=== PATIENT | male | born 1945 | race Caucasian/White ===

== ENCOUNTER → 2018-10-08 12:02 | Outpatient (ROUT) | payer MEDICARE, OTHER, SELFPAY ==
[2018-10-08 13:13] LABS: Troponin I 0.229 ng/mL (0.01-0.034)
== END ==
PROVIDERS: Visit Provider Student in an Organized Health Care Education/Training Program
DX: I25.2 Old myocardial infarction (principal)
CPT/HCPCS: 84484

== ENCOUNTER → 2020-05-06 10:02 | Outpatient (CLI) | payer MEDICARE, OTHER, SELFPAY ==
[2020-05-06 11:35] LABS: Add Manual Diff / Slide Review NO; Basophils Absolute Auto 0 /uL (0-100); Basophils Percent Auto 0.4 % (0-2); Eosinophils Absolute Auto 100 /uL (0-450); Eosinophils Percent Auto 0.8 % (2-4); Hematocrit 45.9 % (41-53); Hemoglobin 16.3 g/dL (13.5-17.5); Lymphocytes Absolute Auto 1800 /uL (1100-4500); Lymphocytes Percent Auto 26.6 % (25-40); Mean Corpuscular HGB Conc 35.5 % (30-36); Mean Corpuscular Volume 101.5 fL (80-100); Monocytes Absolute Auto 700 /uL (0-900); Monocytes Percent Auto 10.8 % (3-14); Neutrophils Absolute Auto 4200 /uL (1500-7000); Neutrophils Percent Auto 61.4 % (50-75); Platelet Count 174 X10^3/uL (150-400); Red Blood Cell Count 4.52 X10^6/uL (4.5-5.9); Red Cell Distribution Width 12.5 % (11.6-14.8); White Blood Cell Count 6.9 X10^3/uL (4.5-11.0)
[2020-05-06 12:13] LABS: Alanine Aminotransferase 30 IU/L (<50); Albumin 4.6 g/dL (3.5-5.0); Albumin Globulin Ratio 1.7 (1.0-2.8); Alkaline Phosphatase 93 U/L (38-126); Aspartate Aminotransferase 32 IU/L (17-59); BUN Creatinine Ratio 20.9 (6-22); Bilirubin Total 0.7 mg/dL (0.2-1.3); Blood Urea Nitrogen 19 mg/dL (9-20); Calcium 9.7 mg/dL (8.4-10.2); Carbon Dioxide 23 mmol/L (22-32); Chloride 103 mmol/L (98-107); Cholesterol 203 mg/dL (140-199); Estimated Glomerular Filt Rate > 60.0 mL/min (>60); Globulin 2.7 g/dL (1.7-4.1); Glucose 115 mg/dL (80-110); HDL Cholesterol 32 mg/dL (40-60); HEMOLYSIS < 15 (0-50); LDL Cholesterol Calculated 113 mg/dL (<100); Potassium 4.4 mmol/L (3.4-5.1); Sodium 137 mmol/L (137-145); Total Protein 7.3 g/dL (6.3-8.2); Triglycerides 292 mg/dL (35-150)
[2020-05-06 12:24] LABS: Erythrocyte Sedimentation Rate 4 MM/HR (0-15)
[2020-05-06 12:25] LABS: NT-proBNP (BNP-Adult 18+) 66 pg/mL (<450)
[2020-05-06 12:46] LABS: Prostate Specific Antigen 0.468 ng/mL (0.10-4.00)
[2020-05-06 13:04] LABS: Vitamin B12 632 pg/mL (239-931)
[2020-05-07 05:11] LABS: RPR Screen Non Reactive (Non Reactive)
[2020-05-10 02:36] LABS: Methylmalonic Acid,Serum 190 nmol/L (0-378)
== END ==
PROVIDERS: Referring Provider Family Medicine; Visit Provider Family Medicine
DX: R41.3 Other amnesia (principal)
CPT/HCPCS: 36415; 80053; 80061; 82607; 83880; 83921; 84153; 84443; 85025; 85651; 86592

== ENCOUNTER 2020-08-30 17:28 | Observation (INO) | payer MEDICARE, OTHER, SELFPAY ==
[2020-08-30] VITALS (20 sets, daily range): BP systolic 161–201; BP diastolic 73–123; PULSE 64–130; RESP 9–42; TEMP 36.3–36.8; O2SAT 86–97; BMI 30.9; BMI 29.1
--- NOTE | 2020-08-30 17:41 | DI.CT.S_ITS ---
PROCEDURE: CT HEAD/BRAIN WO CON INDICATIONS: balance issues, left facial droop, no last known well TECHNIQUE: Noncontrast 4.5 mm thick angled axial sections acquired from the foramen magnum to the vertex, with coronal and sagittal reformats. For radiation dose reduction, the following was used: automated exposure control, adjustment of mA and/or kV according to patient size. COMPARISON: None. FINDINGS: Image quality: Excellent. CSF spaces: Basal cisterns are patent. No extra-axial fluid collections. The ventricles are symmetric in size and shape. Brain: No intracranial bleeds or masses. There is a small old infarct in the right occipital lobe with encephalomalacia. There is mild cerebral volume loss for age, with resultant ventricular and sulcal prominence. There are moderate periventricular and deep white matter chronic small vessel ischemic changes. There is intracranial internal carotid artery atherosclerosis. There is a stent in the distal right vertebral artery. Skull and face: Calvarium and visualized facial bones appear intact, without suspicious lesions. Sinuses: Visualized sinuses and mastoids are clear. IMPRESSION: 1. No acute intracranial abnormalities. 2. Old infarct in the right occipital lobe. Dictated by: Delgado Balderas M.D. on 08/30/2020 at 18:29 Approved by: Delgado Balderas M.D. on 08/30/2020 at 18:34
[2020-08-30] MEDS: SODIUM CHLORIDE 0.9% 1,000 ML 250 ML IV (18:20)
[2020-08-30 18:28] LABS: Add Manual Diff / Slide Review NO; Basophils Absolute Auto 100 /uL (0-100); Basophils Percent Auto 0.5 % (0-2); Eosinophils Absolute Auto 100 /uL (0-450); Eosinophils Percent Auto 0.8 % (2-4); Hematocrit 45.2 % (41-53); Lymphocytes Absolute Auto 1900 /uL (1100-4500); Lymphocytes Percent Auto 18.3 % (25-40); Mean Corpuscular HGB Conc 35.4 % (30-36); Mean Corpuscular Hemoglobin 36.1 PG (26-34); Monocytes Absolute Auto 1100 /uL (0-900); Monocytes Percent Auto 10.9 % (3-14); Neutrophils Absolute Auto 7100 /uL (1500-7000); Neutrophils Percent Auto 69.5 % (50-75); Platelet Count 179 X10^3/uL (150-400); Red Blood Cell Count 4.43 X10^6/uL (4.5-5.9); Red Cell Distribution Width 12.4 % (11.6-14.8); White Blood Cell Count 10.2 X10^3/uL (4.5-11.0)
[2020-08-30 18:39] LABS: Alanine Aminotransferase 40 IU/L (<50); Albumin 4.6 g/dL (3.5-5.0); Albumin Globulin Ratio 1.4 (1.0-2.8); Alkaline Phosphatase 85 U/L (38-126); Aspartate Aminotransferase 39 IU/L (17-59); BUN Creatinine Ratio 19.4 (6-22); Bilirubin Total 0.8 mg/dL (0.2-1.3); Blood Urea Nitrogen 19 mg/dL (9-20); Calcium 9.9 mg/dL (8.4-10.2); Carbon Dioxide 27 mmol/L (22-32); Chloride 104 mmol/L (98-107); Creatine Kinase 76 U/L (55-170); Estimated Glomerular Filt Rate > 60.0 mL/min (>60); Globulin 3.2 g/dL (1.7-4.1); Glucose 76 mg/dL (80-110); HEMOLYSIS < 15 (0-50); Sodium 141 mmol/L (137-145); Total Protein 7.8 g/dL (6.3-8.2)
--- NOTE | 2020-08-30 18:45 | ED.NEUROSD ---
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 He states that approximately 10 days ago he felt a sensation the left side of his head that he described as ?popcorn popping ?shortly afterwards he started to have some slurring of his words which he states was new for him. He was also having some blurry vision. He is also having some weakness on his right side. Some of the symptoms have improved since the onset but none of them have completely resolved. He did have some deficits from his prior strokes but with time all those deficits have improved and he thinks what he is experiencing today are new. He has not tried anything for symptoms prior to arrival. He states the reason he came in today is because he talk with a friend who thought he should come in for evaluation. On Anticoagulants: No Related Data Home Medications Medication Instructions Recorded Confirmed aspirin 81 mg tablet 81 mg PO DAILY 08/30/20 08/30/20 garlic 1,000 mg PO QPC 08/30/20 08/30/20 Allergies Allergy/AdvReac Type Severity Reaction Status Date / Time ranitidine [From Zantac] Allergy Verified 08/30/20 17:49 Review of Systems Constitutional Constitutional: Denies headache(s) (No headache currently) Eyes Comments: Blurry vision ENT Ears, Nose, Mouth, and Throat: Denies headache(s) (No headache currently) Cardiovascular Comments: No chest pain, no palpitations, no fast heart rate Respiratory Comments: No shortness of breath Gastrointestinal Comments: No abdominal pain, nausea vomiting Genitourinary Genitourinary: Reports system reviewed and no additional complaints, except as documented Musculoskeletal Comments: Right upper lower extremity weakness Integumentary/Breasts Comments: No rashes Neurologic Neurologic: Denies confusion and Denies headache(s) (No headache currently) Psychiatric Psychiatric: Denies confusion Endocrine Endocrine: Reports system reviewed and no additional complaints, except as documented Hematologic/Lymphatic On Anticoagulants: No Allergic/Immunologic Allergic/Immunologic: Reports system reviewed and no additional complaints, except as documented Patient History Medical History History of stroke Social History Smoking Status: Former smoker alcohol intake: current Smoking Status: Former smoker Substance Use Type: does not use Exam Initial Vital Signs Initial Vital Signs: Vital Signs Pulse Oximetry 86 L 08/30/20 17:36 Const General: cooperative, healthy appearing and comfortable HENMT Head: normal to inspection and normocephalic Eyes Pupils: PERRL EOM: EOM intact bilaterally Chest Chest: normal inspection of the chest Resp Auscultation: clear to auscultation bilaterally Cardio Rate: regular rate Rhythm: regular rhythm GI Palpation: soft Skin General: no rashes or lesions noted Neuro Cranial Nerves: CN's II-XI intact bilaterally Cognition: normal cognition Motor: muscle tone normal throughout Extrem General: normal to inspection and capillary refill normal Psych Appearance: grossly normal and well kempt Scores GCS Zohra coma scale eye opening: Spontaneous Zohra coma scale verbal response: Orientated Zohra coma scale motor response: Obey commands Delano coma scale total score: 15 NIH Stroke Scale Level of Conciousness: Alert, keenly responsive Ask month/age: Answers both questions correctly. Open/close eyes, close hand: Performs both tasks correctly Best gaze horizontal: Normal Visual capps: No visual loss Facial palsy: Minor paralysis, flattened nasolabial fold, asymmetry on smiling Left arm drift: No drift for full 10 sec Right arm drift: No drift for full 10 sec Left leg drift: No drift for full 5 sec Right leg drift: No drift for full 5 sec Limb ataxia: Absent Sensory on face/arms/legs: Normal, no sensory loss Best language: No aphasia, normal Dysarthria: Mild to mod,some slurring Extinction or inattention: No abnormality Total NIH Stroke scale score: 2 Course Orders Ordered: ED Orders 08/30/20 17:41 CT head/brain wo con Stat EKG-12 Lead Stat 08/30/20 18:00 Complete Blood Count AUTO DIFF Stat Comprehensive Metabolic Panel Stat Troponin & CK Cardiac Panel Stat 08/30/20 18:47 COVID19 - ADMIT ([facility] swab/PCR) Stat 08/30/20 19:07 Urine Drug Screen, Rapid Stat Acetaminophen (Acetaminophen 325 Mg Tablet) 650 mg PO Q6HR PRN PRN Reason: Fever/Mild Pain (1-3) Al Hydrox/Mg Hydrox/Simethicone (Mag Hydrox/Alum/Simeth 30 Ml Udc) 30 ml PO Q6HR PRN PRN Reason: Dyspepsia Aspirin (Aspirin Ec 81 Mg Tablet) 81 mg PO DAILY [facility] Atorvastatin Calcium (Atorvastatin 20 Mg Tablet) 80 mg PO BEDTIME [facility] Last Admin: 08/30/20 23:01 Dose: 80 mg Documented by: KEVIN Clopidogrel Bisulfate (Clopidogrel 75 Mg Tablet) 75 mg PO DAILY [facility] Naloxone HCl (Naloxone 0.4 Mg/Ml Vial) 0.2 mg IV Q2MIN PRN PRN Reason: Opiate Reversal Ondansetron HCl (Ondansetron 4 Mg/2 Ml Inj) 4 mg IV Q8HR PRN PRN Reason: Nausea And Vomiting Oxycodone HCl (Oxycodone Ir 5 Mg Tablet) 5 mg PO Q6HR PRN PRN Reason: Pain, Moderate (4-6) Sennosides (Sennosides 8.6 Mg Tablet) 17.2 mg PO BEDTIME [facility] Last Admin: 08/30/20 23:01 Dose: 17.2 mg Documented by: KEVIN Discontinued Medications Aspirin (Aspirin 81 Mg Chew Tab) 324 mg PO NOW ONE Stop: 08/30/20 18:47 Last Admin: 08/30/20 23:02 Dose: 324 mg Documented by: KEVIN Sodium Chloride (Normal Saline 0.9%) 1,000 mls @ 250 mls/hr IV BOLUS ONE Stop: 08/30/20 21:54 Last Infusion: 08/30/20 21:01 Dose: 250 mls/hr Documented by: Admin: 08/30/20 18:20 Dose: 250 mls/hr Documented by: YOLY Vital Signs Vital signs: Vital Signs - 8 hr 08/30/20 17:36 08/30/20 17:37 08/30/20 17:49 Temperature 98.2 F Pulse Rate 68 67 Pulse Rate [Orthostatic Lying] Pulse Rate [Orthostatic Sitting] Pulse Rate [Orthostatic Standing] Respiratory Rate 15 12 Blood Pressure 189/89 H 189/89 H Blood Pressure [Orthostatic Lying] Blood Pressure [Orthostatic Sitting] Blood Pressure [Orthostatic Standing] Pulse Oximetry 86 L 94 95 08/30/20 18:00 08/30/20 18:03 08/30/20 18:05 Temperature Pulse Rate 66 67 69 Pulse Rate [Orthostatic Lying] Pulse Rate [Orthostatic Sitting] Pulse Rate [Orthostatic Standing] Respiratory Rate 19 22 42 H Blood Pressure 192/89 H 176/91 H Blood Pressure [Orthostatic Lying] Blood Pressure [Orthostatic Sitting] Blood Pressure [Orthostatic Standing] Pulse Oximetry 96 95 96 08/30/20 18:06 08/30/20 18:13 08/30/20 18:19 Temperature Pulse Rate 73 67 Pulse Rate [Orthostatic Lying] 68 Pulse Rate [Orthostatic Sitting] 69 Pulse Rate [Orthostatic Standing] 74 Respiratory Rate 9 L 21 Blood Pressure 166/73 H 201/92 H Blood Pressure [Orthostatic Lying] 192/89 H Blood Pressure [Orthostatic Sitting] 176/91 H Blood Pressure [Orthostatic Standing] 166/73 H Pulse Oximetry 96 95 08/30/20 18:30 08/30/20 19:00 08/30/20 19:08 Temperature Pulse Rate 64 66 71 Pulse Rate [Orthostatic Lying] Pulse Rate [Orthostatic Sitting] Pulse Rate [Orthostatic Standing] Respiratory Rate 21 19 18 Blood Pressure 186/85 H 191/91 H 197/113 H Blood Pressure [Orthostatic Lying] Blood Pressure [Orthostatic Sitting] Blood Pressure [Orthostatic Standing] Pulse Oximetry 94 97 95 08/30/20 19:30 08/30/20 19:31 08/30/20 20:00 Temperature Pulse Rate 65 65 64 Pulse Rate [Orthostatic Lying] Pulse Rate [Orthostatic Sitting] Pulse Rate [Orthostatic Standing] Respiratory Rate 19 20 21 Blood Pressure 191/123 H Blood Pressure [Orthostatic Lying] Blood Pressure [Orthostatic Sitting] Blood Pressure [Orthostatic Standing] Pulse Oximetry 93 94 92 08/30/20 20:01 Temperature Pulse Rate 64 Pulse Rate [Orthostatic Lying] Pulse Rate [Orthostatic Sitting] Pulse Rate [Orthostatic Standing] Respiratory Rate 21 Blood Pressure 184/85 H Blood Pressure [Orthostatic Lying] Blood Pressure [Orthostatic Sitting] Blood Pressure [Orthostatic Standing] Pulse Oximetry 93 MDM - Neuro Symptoms/Deficit Lab Data Attestation: I reviewed the patient's lab results. Result diagrams: 08/30/20 18:00 08/30/20 18:00 Labs: Lab Results 08/30/20 08/30/20 08/30/20 Range/Units 18:00 18:00 18:47 WBC 10.2 (4.5-11.0) X10^3/uL RBC 4.43 L (4.5-5.9) X10^6/uL Hgb 16.0 (13.5-17.5) g/dL Hct 45.2 (41-53) % MCV 102.0 H (80-100) fL MCH 36.1 H (26-34) PG MCHC 35.4 (30-36) % RDW 12.4 (11.6-14.8) % Plt Count 179 (150-400) X10^3/uL Neut % (Auto) 69.5 (50-75) % Lymph % (Auto) 18.3 L (25-40) % [place] % (Auto) 10.9 (3-14) % Eos % (Auto) 0.8 L (2-4) % Baso % (Auto) 0.5 (0-2) % Neut # (Auto) 7100 H (0411-1053) /uL Lymph # (Auto) 1900 (8721-1771) /uL [place] # (Auto) 1100 H (0-900) /uL Eos # (Auto) 100 (0-450) /uL Baso # (Auto) 100 (0-100) /uL Sodium 141 (137-145) mmol/L Potassium 4.0 (3.4-5.1) mmol/L Chloride 104 (98-107) mmol/L Carbon Dioxide 27 (22-32) mmol/L BUN 19 (9-20) mg/dL Creatinine 0.98 (0.66-1.25) mg/dL Estimated GFR > 60.0 (>60) mL/min BUN/Creatinine Ratio 19.4 (6-22) Glucose 76 L (80-110) mg/dL Calcium 9.9 (8.4-10.2) mg/dL Total Bilirubin 0.8 (0.2-1.3) mg/dL AST 39 (17-59) IU/L ALT 40 (<50) IU/L Alkaline Phosphatase 85 (38-126) U/L Total Creatine Kinase 76 (55-170) U/L CK-MB (CK-2) TNP CK-MB (CK-2) Rel Index TNP Troponin I < 0.012 (0.01-0.034) ng/mL Total Protein 7.8 (6.3-8.2) g/dL Albumin 4.6 (3.5-5.0) g/dL Globulin 3.2 (1.7-4.1) g/dL Albumin/Globulin Ratio 1.4 (1.0-2.8) U Opiates 300ng/mL cut (Negative) Ur Oxycodone Screen (Negative) Urine Methadone Screen (Negative) Ur Barbiturates Screen (Negative) U Tricyclic Antidepress (Negative) Ur Phencyclidine Scrn (Negative) Ur Amphetamines Screen (Negative) U Methamphetamines Scrn (Negative) Ur MDMA Scrn (Ecstasy) (Negative) U Benzodiazepines Scrn (Negative) Urine Cocaine Screen (Negative) U Marijuana (THC) Screen (Negative) SARS-CoV-2 (PCR) Negative (Negative) 08/30/20 Range/Units 19:07 WBC (4.5-11.0) X10^3/uL RBC (4.5-5.9) X10^6/uL Hgb (13.5-17.5) g/dL Hct (41-53) % MCV (80-100) fL MCH (26-34) PG MCHC (30-36) % RDW (11.6-14.8) % Plt Count (150-400) X10^3/uL Neut % (Auto) (50-75) % Lymph % (Auto) (25-40) % [place] % (Auto) (3-14) % Eos % (Auto) (2-4) % Baso % (Auto) (0-2) % Neut # (Auto) (9051-6028) /uL Lymph # (Auto) (3061-0359) /uL [place] # (Auto) (0-900) /uL Eos # (Auto) (0-450) /uL Baso # (Auto) (0-100) /uL Sodium (137-145) mmol/L Potassium (3.4-5.1) mmol/L Chloride (98-107) mmol/L Carbon Dioxide (22-32) mmol/L BUN (9-20) mg/dL Creatinine (0.66-1.25) mg/dL Estimated GFR (>60) mL/min BUN/Creatinine Ratio (6-22) Glucose (80-110) mg/dL Calcium (8.4-10.2) mg/dL Total Bilirubin (0.2-1.3) mg/dL AST (17-59) IU/L ALT (<50) IU/L Alkaline Phosphatase (38-126) U/L Total Creatine Kinase (55-170) U/L CK-MB (CK-2) CK-MB (CK-2) Rel Index Troponin I (0.01-0.034) ng/mL Total Protein (6.3-8.2) g/dL Albumin (3.5-5.0) g/dL Globulin (1.7-4.1) g/dL Albumin/Globulin Ratio (1.0-2.8) U Opiates 300ng/mL cut Positive H (Negative) Ur Oxycodone Screen Negative (Negative) Urine Methadone Screen Negative (Negative) Ur Barbiturates Screen Negative (Negative) U Tricyclic Antidepress Negative (Negative) Ur Phencyclidine Scrn Negative (Negative) Ur Amphetamines Screen Negative (Negative) U Methamphetamines Scrn Negative (Negative) Ur MDMA Scrn (Ecstasy) Negative (Negative) U Benzodiazepines Scrn Negative (Negative) Urine Cocaine Screen Negative (Negative) U Marijuana (THC) Screen Negative (Negative) SARS-CoV-2 (PCR) (Negative) Point of Care Testing Glucose POC 77 Urine Dip Bedside Urine Glucose Negative Bedside Urine Bilirubin - Negative Bedside Urine Ketone - Negative Urine Specific [place] 1.030 Bedside Urine Occult Blood - Negative Bedside Urine pH 6.0 Bedside Urine Protein - Negative Bedside Urine Urobilinogen +/- 1mg Bedside Urine Nitrite - Negative Bedside Urine Leukocytes - Negative Esterase Imaging Data CT scan - head: Radiologist's Impression: [address] [id number] Scan ReportSigned Patient: Moustapha Coppola FMR#: [id number]: 4Acct:[id number]/Sex: 74 / MDate of Service: 08/30/20Loc: EDAccession Number: [id number] Procedure: CT head/brain wo con Ordering Provider: Roro Slaughter D.O. PROCEDURE: CT HEAD/BRAIN WO CON INDICATIONS: balance issues, left facial droop, no last known well TECHNIQUE: Noncontrast 4.5 mm thick angled axial sections acquired from the foramen magnum to the vertex, with coronal and sagittal reformats. For radiation dose reduction, the following was used: automated exposure control, adjustment of mA and/or kV according to patient size. COMPARISON: None. FINDINGS: Image quality: Excellent. CSF spaces: Basal cisterns are patent. No extra-axial fluid collections. The ventricles are symmetric in size and shape. Brain: No intracranial bleeds or masses. There is a small old infarct in the right occipital lobe with encephalomalacia. There is mild cerebral volume loss for age, with resultant ventricular and sulcal prominence. There are moderate periventricular and deep white matter chronic small vessel ischemic changes. There is intracranial internal carotid artery atherosclerosis. There is a stent in the distal right vertebral artery. Skull and face: Calvarium and visualized facial bones appear intact, without suspicious lesions. Sinuses: Visualized sinuses and mastoids are clear. IMPRESSION: 1. No acute intracranial abnormalities. 2. Old infarct in the right occipital lobe. Dictated by: Delgado Balderas M.D. on 08/30/2020 at 18:29 Approved by: Delgado Balderas M.D. on 08/30/2020 at 18:34 ECG Data Attestation: I personally reviewed and interpreted this ECG as follows: Interpretation: Sinus rhythm Ventricular rate is 66 Sinus arrhythmia Normal QRS Left axis deviation No ST T wave changes MDM Narrative Medical decision making narrative: Head CT shows no acute pathology. Patient's symptoms began greater than 10 days ago so is not a candidate for tPA. His NIH score of 2. I suspect that he did have a CVA 10 days ago given his presentation. Given this and feel he does need admitted to the hospital for further evaluation treatment. Discussed the case with TATIANA Troy the night hospitalist who will admit for further evaluation and treatment. Discussed the need for admission with the patient. He expressed understanding and agreement. Discharge Plan Departure Patient Disposition: Admitted as Observation Clinical Impression: Cerebrovascular accident Admit Date/Time: 08/30/20 20:08 Admit Provider: Mara Troy
[2020-08-30 18:50] LABS: Troponin I < 0.012 ng/mL (0.01-0.034)
[2020-08-30 19:29] LABS: UR Morphine/Opiate cutoff 300 Positive (Negative); Ur Creatinine Normal (Normal); Ur Specific Gravity Normal (Normal); Urine Amphetamines Negative (Negative); Urine Barbiturates Negative (Negative); Urine Benzodiazepines Negative (Negative); Urine Cocaine Negative (Negative); Urine MDMA Negative (Negative); Urine Methadone Negative (Negative); Urine Methamphetamines Negative (Negative); Urine Oxycodone Negative (Negative); Urine Phencyclidine Negative (Negative); Urine Tetrahydrocannabinol Negative (Negative); Urine Tricyclic Antidepressant Negative (Negative); Urine pH Normal (Normal)
[2020-08-30 20:03] LABS: COVID19 - ADMIT (NP swab/PCR) Negative (Negative)
--- NOTE | 2020-08-30 20:10 | DI.MRI.S_ITS ---
PROCEDURE: MR STROKE Pre- and post-contrast brain MRI, non-contrast brain MR angiogram, pre- and postcontrast neck MR angiogram INDICATIONS: R/O Stroke TECHNIQUE: Brain: Noncontrast axial T1 spin echo, axial T2 fast spin echo, sagittal and axial FLAIR, coronal T2 fast spin echo, axial gradient echo, axial diffusion and ADC through the brain. After the administration of contrast, axial 3D VIBE of the cranial vasculature and brain. Brain MRA: Non-contrast 3-D time of flight MR angiogram, with multiple ncytomq-yogexildy-shfbelyqah (MIP) reformats performed. Neck MRA: Axial and sagittal TruFISP through the neck. Coronal dynamic MR angiogram during administration of contrast in the arterial and venous phases, with 3-dimenstional bevsqqm-gelbvndqp-wzwazxwrnf (MIP) reformats constructed from subtraction images. COMPARISON: [facility], CT, CT HEAD/BRAIN WO CON, 08/30/2020, 18:07. FINDINGS: BRAIN: CSF spaces: Ventricles are grossly unremarkable. Basal cisterns are patent. No extra-axial fluid collections. Brain: No midline shift. No intracranial bleeds or masses. Bryant-white matter interface appears intact. Acute ischemia is noted primarily involving the right temporal occipital lobe but also osteoarthritis sub 5 mm focus seen in the left thalamus. Additional possible 1 mm focus seen in the right thalamus although technically indeterminate due to small size. There also areas of sub 5 mm cute ischemia in both cerebellar hemispheres No abnormal enhancement. Scattered small white matter changes, probably represent chronic microvascular ischemic disease, versus statistically less likely demyelination or other infectious, inflammatory, neurodegenerative etiology, technically nonspecific. Skull and face: Calvarium and facial bones appear intact. Orbits appear normal. Sinuses: Bilateral mastoid air cell fluid, left greater than right. HEAD MR ANGIOGRAPHY: Anterior circulation: Intracranial internal carotid arteries (ICA): Patent. Anterior cerebral arteries (KYA): Patent. Middle cerebral arteries (MCA): Patent. Other: No aneurysms are seen. Posterior circulation: Visualized portions of the vertebral arteries: Dominant right vertebral artery. Basilar artery: Patent. Posterior cerebral arteries ([employer]): Neither of the posterior cerebral arteries are well visualized. There is questionable collateral filling from the left posterior communicating artery of the P2 segment, however this is not well visualized and recommend CTA. There may be collateral filling of the right P2 segment also not well seen. Other: No aneurysms are seen. NECK MR ANGIOGRAPHY: Carotid system: Common carotid artery (CCA) origins: Patent. Common carotid arteries (CCA): Patent. Internal carotid arteries (ICA): 50% focal stenosis at the origin of the left internal carotid artery. There is mild less than 50% atherosclerotic narrowing at the proximal right ICA.. Posterior circulation: Vertebral artery origins: The right vertebral artery origin appears grossly patent. There is high-grade stenosis of the left vertebral artery origin. Extracranial portions of both vertebral arteries: There is long segment narrowing of the right V4 segment. The right vertebral artery is dominant. The left V4 segment not well seen. Basilar artery: Patent. Soft tissues: Visualized neck soft tissues demonstrate no suspicious abnormalities. Bones: No suspicious bony lesions. Cervical spondylosis and facet arthropathy. IMPRESSION: BRAIN MRI: Multifocal areas of acute ischemia most notably involving the right posterior temporal occipital lobe, in addition to sub 5 mm areas involving cerebellar hemispheres and thalami bilaterally. BRAIN MR ANGIOGRAM: Neither of the P1 segments are well visualized suggestive of high-grade stenosis, although there is some collateral filling. There appears to be some collateral filling of the P2 segments although probably diminutive flow distally. Recommend further evaluation with dedicated CT angiogram. NECK MR ANGIOGRAM: 50% focal stenosis at the origin of the left ICA. High-grade focal stenosis at the origin of the left vertebral artery. Dominant right vertebral artery, with long segment narrowing of the right V4 segment. The left V4 segment not visualized/occluded. Dictated by: Jakob Le M.D. on 08/31/2020 at 11:49 Approved by: Jakob Le M.D. on 08/31/2020 at 12:12
--- NOTE | 2020-08-30 20:49 | PM.HP.1 ---
History of Present Illness History of Present Illness Date Patient Seen: 08/30/20 Time Patient Seen: 20:20 Chief complaint: Possible stroke Narrative: Patient is a 74-year-old male Moustapha Coppola who presented today to the ED for a chief complaint of possible stroke/neuro deficit. Patient states that he has had 3 strokes in the past here for evaluation, and he thinks is another stroke. He states that approximately 10 days ago he felt a sensation the left side of his head that he described as ?popcorn popping ?shortly afterwards he started to have some slurring of his words which he states was new for him. He was also having some blurry vision. He is also having some weakness on his right side. Some of the symptoms have improved since the onset but none of them have completely resolved. He did have some deficits from his prior strokes but with time all those deficits have improved and he thinks what he is experiencing today are new. He has not tried anything for symptoms prior to arrival. He states the reason he came in today is because he talked with a friend who thought he should come in for evaluation. 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 Patient also has a history of heart attack, sleep apnea, and glaucoma. Patient reports he only takes aspirin daily. Upon admit to the floor patient complains of only continuing Ember mild slurred speech and no other deficits at this time. Patient denies chest pain, shortness of breath, nausea, vomiting, diarrhea, chills, fever, body aches, headache, changes in vision, difficulty walking, numbness/tingling, weakness, or difficulty walking or balance. Upon admit patient's blood pressure was slightly elevated at 192/89, but the rest of his vitals were unremarkable. patients CBC was unremarkable and within normal limits as was his CMP with the exception of a blood sugar of 76. Patient's liver enzymes were within normal limits, his tox screen was positive for opiates, and his initial troponin were negative. Patient had EKG with a sinus rhythm, ventricular rate 66, without ST or T-wave changes. Patient's troponin was within normal limits. Patient's head CT demonstrated an old infarct in the right occipital lobe, and noted no acute intracranial abnormalities. NIH score of 2 both in the ED and upon admit to the floor. Patient admitted for neurological deficit, stroke rule out. Patient History Medical History (Updated 08/31/20 @ 03:43 by VICKI Mosher-SABAS) Glaucoma History of coma History of heart attack History of stroke History of stroke Sleep apnea Surgical History (Updated 08/31/20 @ 03:43 by DIANE Mosher) History of appendectomy History of mandibular surgery History of shoulder surgery Family & Social History Family History (Updated 08/31/20 @ 03:44 by DIANE Mosher) Father Pulmonary embolism Heart disease Mother No problems noted. 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 Safety & Behavioral: Feels Safe in Current Yes Environment Tobacco & Substance use: Smoking Status Former smoker (smoked for 3yrs) Substance Use Type does not use, stopped drinking alcohol in 2002 following stroke #3. Meds Home Medications and Allergies Home Medications Medication Instructions Recorded Confirmed Type aspirin 81 mg tablet 81 mg PO DAILY 08/30/20 08/30/20 History garlic 1,000 mg PO QPC 08/30/20 08/30/20 History Allergies Allergy/AdvReac Type Severity Reaction Status Date / Time ranitidine [From Zantac] Allergy Verified 08/30/20 17:49 Review of Systems Review of Systems Narrative: Patient denies any signs or symptoms then otherwise stated in HPI. Neurologic Comments: Patient is having slurred, slowed speech & slowed thought process Exam Vital Signs (past 8 hours): - 08/30/20 17:36 08/30/20 17:37 08/30/20 17:49 Temperature 98.2 F Pulse Rate 68 67 Pulse Rate [Orthostatic Lying] Pulse Rate [Orthostatic Sitting] Pulse Rate [Orthostatic Standing] Respiratory Rate 15 12 Blood Pressure 189/89 H 189/89 H Blood Pressure [Orthostatic Lying] Blood Pressure [Orthostatic Sitting] Blood Pressure [Orthostatic Standing] Pulse Oximetry 86 L 94 95 08/30/20 18:00 08/30/20 18:03 08/30/20 18:05 Temperature Pulse Rate 66 67 69 Pulse Rate [Orthostatic Lying] Pulse Rate [Orthostatic Sitting] Pulse Rate [Orthostatic Standing] Respiratory Rate 19 22 42 H Blood Pressure 192/89 H 176/91 H Blood Pressure [Orthostatic Lying] Blood Pressure [Orthostatic Sitting] Blood Pressure [Orthostatic Standing] Pulse Oximetry 96 95 96 08/30/20 18:06 08/30/20 18:13 08/30/20 18:19 Temperature Pulse Rate 73 67 Pulse Rate [Orthostatic Lying] 68 Pulse Rate [Orthostatic Sitting] 69 Pulse Rate [Orthostatic Standing] 74 Respiratory Rate 9 L 21 Blood Pressure 166/73 H 201/92 H Blood Pressure [Orthostatic Lying] 192/89 H Blood Pressure [Orthostatic Sitting] 176/91 H Blood Pressure [Orthostatic Standing] 166/73 H Pulse Oximetry 96 95 08/30/20 18:30 08/30/20 19:00 08/30/20 19:08 Temperature Pulse Rate 64 66 71 Pulse Rate [Orthostatic Lying] Pulse Rate [Orthostatic Sitting] Pulse Rate [Orthostatic Standing] Respiratory Rate 21 19 18 Blood Pressure 186/85 H 191/91 H 197/113 H Blood Pressure [Orthostatic Lying] Blood Pressure [Orthostatic Sitting] Blood Pressure [Orthostatic Standing] Pulse Oximetry 94 97 95 08/30/20 19:30 08/30/20 19:31 08/30/20 20:00 Temperature Pulse Rate 65 65 64 Pulse Rate [Orthostatic Lying] Pulse Rate [Orthostatic Sitting] Pulse Rate [Orthostatic Standing] Respiratory Rate 19 20 21 Blood Pressure 191/123 H Blood Pressure [Orthostatic Lying] Blood Pressure [Orthostatic Sitting] Blood Pressure [Orthostatic Standing] Pulse Oximetry 93 94 92 08/30/20 20:01 Temperature Pulse Rate 64 Pulse Rate [Orthostatic Lying] Pulse Rate [Orthostatic Sitting] Pulse Rate [Orthostatic Standing] Respiratory Rate 21 Blood Pressure 184/85 H Blood Pressure [Orthostatic Lying] Blood Pressure [Orthostatic Sitting] Blood Pressure [Orthostatic Standing] Pulse Oximetry 93 Oxygen Delivery Method Room Air Narrative Exam Narrative: General: Patient is a well-developed, well-nourished in no distress at this time. HEENT: Normocephalic, atraumatic, extraocular muscles intact, oral pharynx is clear and mucous membranes are moist. Neck is supple and symmetric, trachea is midline, no adenopathy, no thyroid enlargement, nontender, no masses palpated. Negative for JVD, patient has drooping of the left eye which is residual from previous stroke. Chest: Normal AP diameter and contour without kyphoscoliosis, no nasal flaring, retractions, or tachypneic labored Lungs: Auscultation of all lung capps are clear without adventitious sounds, wheezes, rhonchi, or rales. Cardio: S1 & S2 with regular rate and rhythm without murmur, rubs, or gallops, no carotid bruit, no cardiac pulsations present. Abdomen: Soft nontender, negative for organomegaly, or masses. Bowel sounds are present in all 4 quadrants without guarding or rebound, no CVA tenderness. Musculoskeletal: Muscle strength and tone are equal within normal limits, no deformity, crepitus, effusions, cyanosis, clubbing or edema present. Full range of motion intact radial and pedal pulses are normal. Skin: Warm dry and intact without rashes, ulcerations or petechiae. Neuro: Alert and orientated x3, strength is +5/5 in all extremities, sensation to touch intact, no gross deficits noted of cranial nerves. Slightly slurred and delayed speech and thought process. Word-finding difficulty. Psych: Patient has a well-kept appearance, appropriate affect, mental status attitude thought context and judgment are appropriate for age. Objective ECG Impression: Sinus rhythm with a ventricular rate of [address] or T-wave changes. Imaging CT scan - head: My impression: Right occipital lobe old infarct noted without any acute abnormalities Labs Result Diagrams: 08/30/20 18:00 08/30/20 18:00 Labs: Laboratory Results - last 24 hr 08/30/20 08/30/20 08/30/20 18:00 18:00 18:47 WBC 10.2 RBC 4.43 L Hgb 16.0 Hct 45.2 MCV 102.0 H MCH 36.1 H MCHC 35.4 RDW 12.4 Plt Count 179 Neut % (Auto) 69.5 Lymph % (Auto) 18.3 L [place] % (Auto) 10.9 Eos % (Auto) 0.8 L Baso % (Auto) 0.5 Neut # (Auto) 7100 H Lymph # (Auto) 1900 [place] # (Auto) 1100 H Eos # (Auto) 100 Baso # (Auto) 100 Sodium 141 Potassium 4.0 Chloride 104 Carbon Dioxide 27 BUN 19 Creatinine 0.98 Estimated GFR > 60.0 BUN/Creatinine Ratio 19.4 Glucose 76 L Calcium 9.9 Total Bilirubin 0.8 AST 39 ALT 40 Alkaline Phosphatase 85 Total Creatine Kinase 76 CK-MB (CK-2) TNP CK-MB (CK-2) Rel Index TNP Troponin I < 0.012 Total Protein 7.8 Albumin 4.6 Globulin 3.2 Albumin/Globulin Ratio 1.4 U Opiates 300ng/mL cut Ur Oxycodone Screen Urine Methadone Screen Ur Barbiturates Screen U Tricyclic Antidepress Ur Phencyclidine Scrn Ur Amphetamines Screen U Methamphetamines Scrn Ur MDMA Scrn (Ecstasy) U Benzodiazepines Scrn Urine Cocaine Screen U Marijuana (THC) Screen SARS-CoV-2 (PCR) Negative 08/30/20 19:07 WBC RBC Hgb Hct MCV MCH MCHC RDW Plt Count Neut % (Auto) Lymph % (Auto) [place] % (Auto) Eos % (Auto) Baso % (Auto) Neut # (Auto) Lymph # (Auto) [place] # (Auto) Eos # (Auto) Baso # (Auto) Sodium Potassium Chloride Carbon Dioxide BUN Creatinine Estimated GFR BUN/Creatinine Ratio Glucose Calcium Total Bilirubin AST ALT Alkaline Phosphatase Total Creatine Kinase CK-MB (CK-2) CK-MB (CK-2) Rel Index Troponin I Total Protein Albumin Globulin Albumin/Globulin Ratio U Opiates 300ng/mL cut Positive H Ur Oxycodone Screen Negative Urine Methadone Screen Negative Ur Barbiturates Screen Negative U Tricyclic Antidepress Negative Ur Phencyclidine Scrn Negative Ur Amphetamines Screen Negative U Methamphetamines Scrn Negative Ur MDMA Scrn (Ecstasy) Negative U Benzodiazepines Scrn Negative Urine Cocaine Screen Negative U Marijuana (THC) Screen Negative SARS-CoV-2 (PCR) Assessment & Plan Assessment & Plan narrative: 1. Acute neurological deficit deficit(slurred and delayed speech, difficulty with word finding, right arm and leg weakness/coordination, vision changes) rule out stroke, acute, present on admission in the setting of a history of strokes x3 with resulting chronic neurological deficit of left leg weakness and left eye droop, patient non compliant medication management, present on admission --patient admitted on telemetry stroke protocol in place, NIHSS Q shift, NIHSS on admission 2 -patient to be monitored on tele medicine, aspiration precautions, initial neuro assessment, vital signs q.4 hours, intake and output monitored Q shift, weight measure daily, diet: NPO until bedside swallow completed and cleared, then patient may advance as tolerated to heart healthy diet. -Provider to be notified for HR >120, RR >36, BP <90/60, Temp >102. -head CT was negative, MR head ordered per protocol. -cardiovascular risk factors stratification: for ethnicity, history of carotid atherosclerosis, tobacco abuse, alcohol abuse, diabetes type 2, hypertension, and GERD. -patient placed on ASA 81 mg daily and Plavix 80 mg -a.m. labs ordered CMP and CBC daily, A1c, Mag, lipids, TSH, PT/PTT, serial troponins x3 -consults ordered physical therapy, occupational therapy, speech therapy. -prevention vaccine recommend yearly flu vaccine 2. Elevated blood pressure on admission as evidence by 192/89, acute suspect acute on chronic, in the setting history of stroke x3 and history of heart attack, present on admission -patient to be started on lisinopril in a.m. -echo ordered for tomorrow 3. Obesity as evidence by BMI of 29.1 acute on chronic, present on admission -consideration will be given to dietary counseling Code status: DNR Surrogate decision maker Dr. Cuco Mercedes ([facility]) COVID PCR: Negative DVT/VTE prophylaxis: Plavix 80 mg and SCDs Scores GCS [place] coma scale eye opening: Spontaneous Zohra coma scale verbal response: Orientated [place] coma scale motor response: Obey commands Zohra coma scale total score: 15 NIHSS Level of Conciousness: Alert, keenly responsive Ask month/age: Answers both questions correctly. Open/close eyes, close hand: Performs both tasks correctly Best gaze horizontal: Normal Visual capps: No visual loss Facial palsy: Normal symetrical movement Left arm drift: No drift for full 10 sec Right arm drift: No drift for full 10 sec Left leg drift: No drift for full 5 sec Right leg drift: No drift for full 5 sec Limb ataxia: Absent Sensory on face/arms/legs: Normal, no sensory loss Best language: Mild to moderate, slurs some words Dysarthria: Mild to mod,some slurring Extinction or inattention: No abnormality Total NIH Stroke scale score: 2 Wells' Criteria for PE Clinical signs and symptoms of DVT: No PE is #1 Dx or equally likely: No Heart rate > 100: No Immobilization at least 3 days or surg in previous 4 weeks: No History of PE or DVT: No Hemoptysis: No Malignancy w/Treatment within 6 months or palliative: No Wells' PE Score total: 0 Quality MIPS - Admit I confirm the patient?s Advance Care Plan is present, Code status is documented, Surrogate decision maker is in patient?s record [If Yes, STOP here]: Yes
[2020-08-30 21:00] LABS: INR 1.1 (0.9-1.3); Prothrombin Time 12.3 SECONDS (10.1-12.7)
[2020-08-30 21:06] LABS: Cholesterol 192 mg/dL (140-199); HDL Cholesterol 34 mg/dL (40-60); LDL Cholesterol Calculated 113 mg/dL (<100); Triglycerides 223 mg/dL (35-150)
[2020-08-30 21:18] LABS: Troponin I < 0.012 ng/mL (0.01-0.034)
[2020-08-30 21:37] LABS: Thyroid Stimulating Hormone 2.76 uIU/mL (0.47-4.68)
[2020-08-30] MEDS: ATORVASTATIN 20 MG TABLET 80 MG PO (23:01)
[2020-08-30] MEDS: SENNOSIDES 8.6 MG TABLET 17.2 MG PO (23:01)
[2020-08-30] MEDS: ASPIRIN 81 MG CHEW TAB 324 MG PO (23:02)
[2020-08-31] VITALS (20 sets, daily range): BP systolic 102–145; BP diastolic 52–82; PULSE 61–127; RESP 16–18; TEMP 36.4–37; O2SAT 94–98
[2020-08-31] MEDS: METOPROLOL TARTRATE 5 MG/5 ML INJ IV (00:15)
--- NOTE | 2020-08-31 00:37 | DI.ECHO.S_ITS ---
[place] [facility]---------+ [facility] +---------+ : : [address] : : : : [id number] : : : : Phone: [phone]+ Echocardiogram Report + + :Name: CHRISTINE PRINCE Study Date: 08/31/2020 Height: 68 in : :[facility] ReadingLocation: Weight: 191 lb : : Gender: Male BSA: 2.0 m2 : :: 1945 Age: 74 yrs BP: 111/68 mmHg: :Reason For Study: AFIB W/RVR : :Ordering Physician: : :BRIANNA DAN [facility]- Performed By: Gracie Tellez : :Referring: BRIANNA DAN : + + Interpretation Summary The left ventricle is normal in size. The ejection fraction is estimated to be 60-65%. The right ventricle is normal size. The right ventricular systolic function is normal. There is mild tricuspid regurgitation. The right ventricular systolic pressure is estimated to be at least 25 mmHg based on an estimated right atrial pressure of 3 mm Hg. Procedure: A two-dimensional transthoracic echocardiogram with color flow and Doppler was performed. The study quality was technically adequate. There is no prior echocardiogram noted for this patient. The patient was in sinus rhythm with heart rates between 52-70 bpm during the exam. The patient had frequent PACs during the exam. Left Ventricle: The left ventricle is normal in size. There is mild concentric left ventricular hypertrophy. There is no thrombus. The ejection fraction is estimated to be 60-65%. There are no focal wall motion abnormalities. Diastolic parameters suggest a relaxation abnormality of the left ventricle, consistent with probable normal filling pressures. Right Ventricle: The right ventricle is normal size. The right ventricular systolic function is normal. Atria: The left atrial size is normal. Right atrial size is normal. There is no Doppler evidence for an interatrial shunt. Mitral Valve: The mitral valve leaflets are slightly calcified. There is trace mitral regurgitation. Aortic Valve: The aortic valve is trileaflet. The aortic valve opens well. There is no aortic valve stenosis. No aortic regurgitation is present. Tricuspid Valve: The tricuspid valve is normal. There is mild tricuspid regurgitation. The right ventricular systolic pressure is estimated to be at least 25 mmHg based on an estimated right atrial pressure of 3 mm Hg. Pulmonic Valve: The pulmonic valve is not well seen, but is grossly normal. There is trace pulmonic regurgitation. Great Vessels: The aortic root is normal size. The ascending aorta is at the upper limits of normal in size. The inferior vena cava was not well visualized. Pericardium/ Pleura There is no pericardial effusion. There is an anterior echo-free space consistent with a fat pad. There is no pleural effusion. MMode/2D Measurements & Calculations LVIDd: 4.4 cm LVOT diam: 2.2 cm LVIDs: 2.8 cm Ao root diam: 3.8 cm FS: 37.0 % asc Aorta Diam: 3.5 cm IVSd: 1.2 cm Ao Arch Diam (Prox Trans): 3.5 cm LVPWd: 1.1 cm LV becerra. diameter/BSA (cm/m^2): 2.2 LV sys. diameter/BSA (cm/m^2): 1.4 LA A2 area: 26.6 cm2 RA long axis: 4.4 cm LA A4 area: 12.8 cm2 RA area: 11.4 cm2 LA length (vol): 4.7 cm RA vol: 24.9 ml LA vol: 61.0 ml RA : 12.4 ml/m2 LA vol index: 30.4 ml/m2 RVD1 (basal): 3.7 cm TAPSE: 1.9 cm Doppler Measurements & Calculations Ao V2 max: 113.5 cm/sec LVOT Max Ramos: 94.8 cm/sec Ao V2 mean: 74.1 cm/sec LV V1 max P.6 mmHg Ao max P.2 mmHg LV V1 VTI: 18.9 cm Ao mean P.6 mmHg JASON(I,D): 3.5 cm2 Ao V2 VTI: 21.6 cm JASON(V,D): 3.3 cm2 sev ratio: 0.87 JASON indexed to BSA (cm^2/m^2): 1.7 MV E max ramos: 69.3 cm/sec TR max ramos: 231.9 cm/sec MV A max ramos: 74.6 cm/sec TR max P.5 mmHg MV E/A: 0.93 PA V2 max: 84.2 cm/sec Med Peak E' Ramos: 5.9 cm/sec PA V2 mean: 55.5 cm/sec E/E' med: 11.7 PA mean P.4 mmHg Lat Peak E' Ramos: 6.7 cm/sec PA pr(Accel): 44.7 mmHg E/E' lat: 10.3 E/e' average: 11.0 MV dec time: 0.21 sec SV(LVOT): 74.8 ml Reading Physician:12:16 PM
[2020-08-31] MEDS: dilTIAZem 5 MG/ML SDV 20 MG IV (00:55)
[2020-08-31 01:29] LABS: Troponin I < 0.012 ng/mL (0.01-0.034)
--- NOTE | 2020-08-31 02:04 | PC.NURSE ---
Addendum entered by Shantel Mustafa R.N. 08/31/20 06:17: At approx 0500, it was noted that the pt's HR was sustaining over 110 to 130. Provider made aware. This RN administered PO diltiazem w/ BP 115/64 with HR [prior to entering the room] reading 110 on tele monitor. On exiting the room, tele noted to return to an irregular sinus rhythm but no longer afib, pulse ranging between high 50s to high 60s. Provider informed of change, ordered 500 cc NS bolus to keep pressure and pulse up post-administration of diltiazem. Original Note: At bedside shift report with RN Lakshmi and JOSE Delgado, pt reported new onset of chest pain. Pain was located mid-axillary around 3rd or 4th intercostal space. Pateint reported pain as sharp, denies chest pressure or tightness. Denies shortness of breath, headache, dizziness. Patient reported pain worsened on palpation. When discussing the pain, patient winked at this RN. This RN asked patient if wink was intentional, patient reported yes. This RN stressed the importance of taking healthcare situations seriously, as every issue must be followed up with appropriate medical care. Pateint reported to this RN that the pain feels like heartburn. Patient's BP 161/87 HR 130. B/P repeated 180/113 HR 105. Provider contacted. Ordered stat EKG and troponin. ICU tele reading afib HR 110-130s. 5 mg metoprolol IV ordered. Prior to administration, best BP 145/80, HR 126 irregular. 10 min post admin BP 113/82, HR 127 irregular. Provider notified. 20 mg diltiazem ordered. Prior to administration, BP 110/78, HR 123. 10 min post admin BP 102/52, HR 81. 20 min post admin BP 113/58, HR 71. 40 min post admin BP 111/68 HR 71. ICU tele remains afib with HR 60-80s. Pt reporting of mild lightheadedness. Discussed slowing movements down to prevent any syncope, patient agreeable. Provider aware. PO diltiazem ordered for morning medications. Will continue to monitor BP and HR closely.
[2020-08-31] MEDS: dilTIAZem 30 MG TABLET PO ×3 (05:12→19:28)
[2020-08-31 06:07] LABS: Add Manual Diff / Slide Review NO; Basophils Absolute Auto 0 /uL (0-100); Basophils Percent Auto 0.2 % (0-2); Eosinophils Absolute Auto 100 /uL (0-450); Eosinophils Percent Auto 0.7 % (2-4); Hematocrit 46.9 % (41-53); Hemoglobin 16.3 g/dL (13.5-17.5); Lymphocytes Absolute Auto 1900 /uL (1100-4500); Mean Corpuscular HGB Conc 34.7 % (30-36); Mean Corpuscular Hemoglobin 35.5 PG (26-34); Mean Corpuscular Volume 102.2 fL (80-100); Monocytes Absolute Auto 1000 /uL (0-900); Monocytes Percent Auto 10.7 % (3-14); Neutrophils Absolute Auto 6500 /uL (1500-7000); Neutrophils Percent Auto 68.4 % (50-75); Platelet Count 184 X10^3/uL (150-400); Red Blood Cell Count 4.58 X10^6/uL (4.5-5.9); White Blood Cell Count 9.5 X10^3/uL (4.5-11.0)
[2020-08-31] MEDS: SODIUM CHLORIDE 0.9% 500 ML 1000 ML IV (06:10)
[2020-08-31 06:16] LABS: Creatine Kinase 73 U/L (55-170)
[2020-08-31 06:26] LABS: NT-proBNP (BNP-Adult 18+) 438 pg/mL (<450)
[2020-08-31 06:29] LABS: Troponin I 0.087 ng/mL (0.01-0.034)
[2020-08-31] MEDS: APIXABAN 5 MG TABLET PO ×2 (09:26→21:27)
--- NOTE | 2020-08-31 11:55 | PT-IP ANOTE ---
attempted to see pt multiple times this morning but he was with OT, echo screen, MRI and Speech evaluation. Will attempt to eval him this pm
--- NOTE | 2020-08-31 12:12 | OT.IP.EVAL ---
Past Medical History (Last Updated 08/31/20 @ 03:43 by [facility]a Troy [facility] Glaucoma History of appendectomy History of coma History of heart attack History of mandibular surgery History of shoulder surgery History of stroke History of stroke Sleep apnea Surgical History (Last Updated 08/31/20 @ 03:43 [facility] History of appendectomy History of mandibular surgery History of shoulder surgery Occupational Therapy Inpatient Evaluation/Re-Eval M1 PT/OT-IP Prior Functional Status Start: 08/31/20 08:41 Freq: NEEDED Status: Active Protocol: Document 08/31/20 15:05 [facility] (Rec: 08/31/20 15:40 [facility] [id number]) Medical Review Prior Functional Status Medical History Reviewed Yes Communication Independent Mobility and Gait Prior to 2 weeks did not use a device. Pt states has been using a SPC for the past 2 weeks. Activities of Daily Living and IADL's Pt states was completely independent with all ADl's, IADL's, and driving needs prior to the past 1-2 weeks. Social History Living Arrangements House Number of Stairs To Enter/Railing? Pt has an elevator to get to his 3rd floor condo. Home Environment Standard Height Toilet,Walk in Shower,Tub/Shower,Bidet Home Equipment Straight Cane,Grab Bars Near Toilet,Grab Bars In Shower Additional Social History Comment Pt states currently having his floor and fireplace done in his place. M2 OT-IP Current Condition Start: 08/31/20 15:04 Freq: Status: Active Protocol: Document 08/31/20 15:05 [facility] (Rec: 08/31/20 15:40 [facility] [id number]) Occupational Therapy Current Condition Current Condition Evaluation Date 08/31/20 Treatment Diagnosis Acute CVA Diagnosis Onset Date 08/30/20 M3 OT- IP Subjective and Pain Start: 08/31/20 15:04 Freq: Status: Active Protocol: Document 08/31/20 15:05 [facility] (Rec: 08/31/20 15:40 [facility] [id number]) OT- Subjective Occupational Therapy Visit Type Type Initial Evaluation Visit Start Time 09:15 Visit Stop Time 12:12 Total Visit Minutes 42 Occupational Therapy Visit Comments Patient Comments Pt agreed to get up for OT eval. Pt seen for split treatment due to having ECHO done. Patient/Caregiver Goals TO go home, however pt now open to acute inpt stroke rehab. OT Pain Assessment Pain When Pain Assessed At Rest Pain Present Pain Present Denied Pain M4 OT- IP ADL's Start: 08/31/20 15:04 Freq: Status: Active Protocol: Document 08/31/20 15:05 [facility] (Rec: 08/31/20 15:40 [facility] [id number]) OT HHU-Nsmr-Sdjlqsh General Evaluation Areas Needing Assistance Cutting Food,Loading Utensil, Opening Containers Comments OT Self-Feeding Comments Pt needing increased time hand to mouth with right hand. Noted saliva on left corner of his mouth. OT ADL-Grooming Comments OT Grooming Comments Not performed. OT ADL-Dressing General Eval Lower Body Dressing Ability Moderate Assistance,Maximum Assistance Areas Needing Assistance Underpants/Brief,Pants/Shorts Comments OT Dressing Comments Pt needing MODA for balance and assist to help gracie shorts over his feet. OT ADL-Toileting Comments OT Toileting Comments Pt not having to go. OT ADL-Bathing Comments OT Bathing Comments NOt peformed. M5 OT- IP IADL's Start: 08/31/20 15:04 Freq: Status: Active Protocol: Document 08/31/20 15:05 [facility] (Rec: 08/31/20 15:40 [facility] [id number]) OT-Instrumental Activities of Daily Living Home Safety Awareness Awareness of Need for Assistance at Home Decreased Awareness Ability to Problem Solve Emergency Able to Problem Solve Situations Medication Management Medication Management Comments Pt now having balance and cognitive deficits and would be best for pt to have asisst for all needs at this time. M6 OT- IP Functional Cognition Start: 08/31/20 15:04 Freq: Status: Active Protocol: Document 08/31/20 15:05 [facility] (Rec: 08/31/20 15:40 [facility] [id number]) Cognitive Factors Limiting Selfcare Function Cognitive Ability Level of Alertness Alert Patient Orientation Name,Month,Date,Year,Day of Week,Place,Situation Attention Span Ability Capable of Focused Attention, Capable of Sustained Attention Ability to Follow Commands Able to Follow One Step Commands Memory Description Short Term Impaired Safety Awareness Underestimates Need for Assistance Problem Solving Ability Needs Assist to Identify Solutions Cognitive Tests SLUMS Pt scored 22/30 on the SLUMS and normal score for pt's level of education is 27/30. Pt able to recall 13 animals in one minute, however repeating the same animal and not realizing that he said it before, able to recall 1/5 objects after time passed, not able to say 4 digit number backwards, and able to answer 3/4 questions after time passed. Cognitive Comments Cognitive Assessment Comments Pt states has not slept well but feel that he is not thinking well or remembering as well as he has before. OT- Vision and Hearing OT- Hearing Assessment OT- Hearing Assessment WFL OT- Vision Assessment Visual Acuity Glasses All The Time Visual Attentiveness WFL Visual Convergence WFL Visual [place] Impaired Vision Assessment Comments Pt's glasses not here in the hospital. Pt able to read the clock. Pt's eyelid droops which hinders his vision. Pt states even prior having blurry vision. Decrease for left peripheral vision. Pt noted more nystagmus on the left eye versus right. M7 OT- IP Mobility and Balance Start: 08/31/20 15:04 Freq: Status: Active Protocol: Document 08/31/20 15:05 [facility] (Rec: 08/31/20 15:40 [facility] [id number]) OT- Bed Mobility Assessment Supine to Sit Supine to Sit Assist Standby Assistance Sit to Supine Sit to Supine Assist Standby Assistance OT-Transfer Assessment Sit to and From Stand Sit to and from Stand Moderate Assistance Devices Transfer Assistive Devices None,Gait Belt Comments Mobility Comments Pt was about to get ECHO testing therefore only able to stand pt next to the bed. Pt leans posteriorly with weight on his heel and also legs leaning on the bed for support . Pt MODA to stand for balance. OT- Balance Assessment Sitting Balance and Reactions Static Sitting Balance Ability Poor Dynamic Sitting Balance Ability Poor Standing Balance and Reactions Static Standing Balance Ability Poor Comments Other Balance Tests/Deviations/Treatment Initially while seated on the : bed , pt fell backwards posterior and not able to catch himself even with cue to correct his balance. Pt unsteady his feet and needing MOD/MAX for balance while trying to gracie his shorts while standing. M8 OT- IP Objective Assessments Start: 08/31/20 15:04 Freq: Status: Active Protocol: Document 08/31/20 15:05 [facility] (Rec: 08/31/20 15:40 [facility] [id number]) OT Gross Range of Motion Upper Extremity Range of Motion Assessment Within Functional Limits OT Strength Upper Extremity Strength Assessment Right Impaired Comments Strength Comments RUE 4/5 to 4-/5 from proximal to distal. OT- Coordination Assessment Upper Extremity Finger to Nose Test Bilateral UE Impaired Comments Coordination Comments Right hand 39 seconds and left hand 42 seconds for 9 hole peg test. Pt states has been having difficulty with buttons . OT Sensation Assessment Comments Summary Comments Slight off evy for location of sensation with left hand for light touch. M9 OT- IP Assessment and Plan Start: 08/31/20 15:04 Freq: Status: Active Protocol: Document 08/31/20 15:05 [facility] (Rec: 08/31/20 15:40 [facility] [id number]) OT Summary Assessment and Plan Potential Rehabilitation Potential Good Analytic Complexity at Evaluation Moderate Summary OT Impairments Strength,Balance,Functional Cognition,Functional Mobility, Self-Feeding,Grooming,Dressing ,Toileting,Bathing,Toilet Transfers,Shower Transfers, Activity Tolerance Progress Towards Goals Slow Progress due to Medical Issues,Slow Progress due to Activity Tolerance,Slow Progress due to Cognition Assessment Summary Pt MOD complexity due to acute CVA and history of CVA's. Pt now having word finding and expressive aphasia, decreased coordination of BUE, decreased strength and fluidity and accuracy of movement for right hand, decreased balance. Pt is far from baseline and is open , motivated to go to acute inpt rehab. Goals Self-Feeding Goal Independent Grooming Goal Independent Dressing Goal Independent Toileting Goal Independent Bathing Goal Independent Shower Transfer Goal Independent Days to Meet Goals 30 Frequency of Treatment Frequency Of Treatment Once a Day Treatment Plan OT Treatment Plan ADL Training,Functional Cognition Training,Functional Mobility,Therapeutic Exercises ,Vision Retraining,Patient/ Family Education,Discharge Planning Other Treatment Recommendations and Next Pt to be able to be Treatment Focus independent with set-up of tray and able to feed himself with right hand independently hand to mouth. Discharge Recommendations OT Discharge Recommendations Acute Rehab Transportation Needs at Discharge Private Vehicle,Wheelchair/ Cabulance
--- NOTE | 2020-08-31 15:00 | PM.PN.1 ---
Subjective Subjective Date Patient Seen: 08/31/20 Time Patient Seen: 15:01 Interval history: This is a 74-year-old male with a past medical history of prior strokes and CAD who presented with new speech difficulties and vague right-sided complaints. He was found to have multiple acute infarcts on his MRI and overnight had an episode of atrial fibrillation with rapid ventricular response. His AFib is now returned to normal sinus rhythm on oral diltiazem which we will continue for now. He was started on apixaban. Patient feels well today although his speech is still not to to his baseline. He was agreeable for possible acute rehab based on initial therapy evaluations today. Exam Vital Signs (past 8 hours): - 08/31/20 09:00 08/31/20 09:05 08/31/20 12:00 Temperature 97.8 F 97.5 F L Pulse Rate 74 72 Respiratory Rate 18 18 Blood Pressure 129/67 127/64 Pulse Oximetry 98 97 96 08/31/20 12:33 08/31/20 13:00 Temperature Pulse Rate 72 Respiratory Rate Blood Pressure 127/64 Pulse Oximetry 96 Oxygen Delivery Method Room Air Oxygen Flow Rate 0 Narrative Exam Narrative: General: Patient is a well-developed, well-nourished in no distress at this time. HEENT: Normocephalic, atraumatic, extraocular muscles intact, oral pharynx is clear and mucous membranes are moist. Neck is supple and symmetric, trachea is midline, no adenopathy, no thyroid enlargement, nontender, no masses palpated. Negative for JVD Chest: Normal AP diameter and contour without kyphoscoliosis, no nasal flaring, retractions, or tachypneic labored Lungs: Auscultation of all lung capps are clear without adventitious sounds, wheezes, rhonchi, or rales. Cardio: S1 & S2 with regular rate and rhythm without murmur, rubs, or gallops, no carotid bruit, no cardiac pulsations present. Abdomen: Soft nontender, negative for organomegaly, or masses. Bowel sounds are present in all 4 quadrants without guarding or rebound, no CVA tenderness. Musculoskeletal: Muscle strength and tone are equal within normal limits, no deformity, crepitus, effusions, cyanosis, clubbing or edema present. Skin: Warm dry and intact without rashes, ulcerations or petechiae. Neuro: Alert and orientated x3, strength is +5/5 in all extremities, sensation to touch intact, no gross deficits noted of cranial nerves. Slightly slurred and delayed speech and thought process. Word-finding difficulty. , patient has slight left facial asymmetry which is residual from previous stroke. Psych: Patient has a well-kept appearance, appropriate affect, mental status attitude thought context and judgment are appropriate for age. Objective Imaging MRI - head: Radiologist's impression: Multifocal areas of acute ischemia most notably involving the right posterior temporal occipital lobe, in addition to sub 5 mm areas involving cerebellar hemispheres and thalami bilaterally. Labs Result Diagrams: 08/31/20 05:46 08/30/20 18:00 Labs: Laboratory Results - last 24 hr 08/30/20 08/30/20 08/30/20 18:00 18:00 18:47 WBC 10.2 RBC 4.43 L Hgb 16.0 Hct 45.2 MCV 102.0 H MCH 36.1 H MCHC 35.4 RDW 12.4 Plt Count 179 Neut % (Auto) 69.5 Lymph % (Auto) 18.3 L Crosby % (Auto) 10.9 Eos % (Auto) 0.8 L Baso % (Auto) 0.5 Neut # (Auto) 7100 H Lymph # (Auto) 1900 Crosby # (Auto) 1100 H Eos # (Auto) 100 Baso # (Auto) 100 PT INR Sodium 141 Potassium 4.0 Chloride 104 Carbon Dioxide 27 BUN 19 Creatinine 0.98 Estimated GFR > 60.0 BUN/Creatinine Ratio 19.4 Glucose 76 L Hemoglobin A1c Calcium 9.9 Magnesium Total Bilirubin 0.8 AST 39 ALT 40 Alkaline Phosphatase 85 Total Creatine Kinase 76 CK-MB (CK-2) TNP CK-MB (CK-2) Rel Index TNP Troponin I < 0.012 NT-Pro-B Natriuret Pep Total Protein 7.8 Albumin 4.6 Globulin 3.2 Albumin/Globulin Ratio 1.4 Triglycerides Cholesterol LDL Cholesterol, Calc HDL Cholesterol TSH U Opiates 300ng/mL cut Ur Oxycodone Screen Urine Methadone Screen Ur Barbiturates Screen U Tricyclic Antidepress Ur Phencyclidine Scrn Ur Amphetamines Screen U Methamphetamines Scrn Ur MDMA Scrn (Ecstasy) U Benzodiazepines Scrn Urine Cocaine Screen U Marijuana (THC) Screen SARS-CoV-2 (PCR) Negative 0608/30/20 08/30/20 19:07 20:42 20:42 WBC RBC Hgb Hct MCV MCH MCHC RDW Plt Count Neut % (Auto) Lymph % (Auto) Crosby % (Auto) Eos % (Auto) Baso % (Auto) Neut # (Auto) Lymph # (Auto) Crosby # (Auto) Eos # (Auto) Baso # (Auto) PT INR Sodium Potassium Chloride Carbon Dioxide BUN Creatinine Estimated GFR BUN/Creatinine Ratio Glucose Hemoglobin A1c 6.0 Calcium Magnesium Total Bilirubin AST ALT Alkaline Phosphatase Total Creatine Kinase CK-MB (CK-2) CK-MB (CK-2) Rel Index Troponin I < 0.012 NT-Pro-B Natriuret Pep Total Protein Albumin Globulin Albumin/Globulin Ratio Triglycerides Cholesterol LDL Cholesterol, Calc HDL Cholesterol TSH U Opiates 300ng/mL cut Positive H Ur Oxycodone Screen Negative Urine Methadone Screen Negative Ur Barbiturates Screen Negative U Tricyclic Antidepress Negative Ur Phencyclidine Scrn Negative Ur Amphetamines Screen Negative U Methamphetamines Scrn Negative Ur MDMA Scrn (Ecstasy) Negative U Benzodiazepines Scrn Negative Urine Cocaine Screen Negative U Marijuana (THC) Screen Negative SARS-CoV-2 (PCR) 08/30/20 08/30/20 08/30/20 20:42 20:42 20:42 WBC RBC Hgb Hct MCV MCH MCHC RDW Plt Count Neut % (Auto) Lymph % (Auto) Crosby % (Auto) Eos % (Auto) Baso % (Auto) Neut # (Auto) Lymph # (Auto) Crosby # (Auto) Eos # (Auto) Baso # (Auto) PT 12.3 INR 1.1 Sodium Potassium Chloride Carbon Dioxide BUN Creatinine Estimated GFR BUN/Creatinine Ratio Glucose Hemoglobin A1c Calcium Magnesium 2.0 Total Bilirubin AST ALT Alkaline Phosphatase Total Creatine Kinase CK-MB (CK-2) CK-MB (CK-2) Rel Index Troponin I NT-Pro-B Natriuret Pep Total Protein Albumin Globulin Albumin/Globulin Ratio Triglycerides 223 H Cholesterol 192 LDL Cholesterol, Calc 113 H HDL Cholesterol 34 L TSH 2.76 U Opiates 300ng/mL cut Ur Oxycodone Screen Urine Methadone Screen Ur Barbiturates Screen U Tricyclic Antidepress Ur Phencyclidine Scrn Ur Amphetamines Screen U Methamphetamines Scrn Ur MDMA Scrn (Ecstasy) U Benzodiazepines Scrn Urine Cocaine Screen U Marijuana (THC) Screen SARS-CoV-2 (PCR) 08/31/20 08/31/20 08/31/20 00:36 05:46 05:46 WBC 9.5 RBC 4.58 Hgb 16.3 Hct 46.9 MCV 102.2 H MCH 35.5 H MCHC 34.7 RDW 13.0 Plt Count 184 Neut % (Auto) 68.4 Lymph % (Auto) 20.0 L Crosby % (Auto) 10.7 Eos % (Auto) 0.7 L Baso % (Auto) 0.2 Neut # (Auto) 6500 Lymph # (Auto) 1900 Crosby # (Auto) 1000 H Eos # (Auto) 100 Baso # (Auto) 0 PT INR Sodium Potassium Chloride Carbon Dioxide BUN Creatinine Estimated GFR BUN/Creatinine Ratio Glucose Hemoglobin A1c Calcium Magnesium Total Bilirubin AST ALT Alkaline Phosphatase Total Creatine Kinase CK-MB (CK-2) CK-MB (CK-2) Rel Index Troponin I < 0.012 NT-Pro-B Natriuret Pep 438 Total Protein Albumin Globulin Albumin/Globulin Ratio Triglycerides Cholesterol LDL Cholesterol, Calc HDL Cholesterol TSH U Opiates 300ng/mL cut Ur Oxycodone Screen Urine Methadone Screen Ur Barbiturates Screen U Tricyclic Antidepress Ur Phencyclidine Scrn Ur Amphetamines Screen U Methamphetamines Scrn Ur MDMA Scrn (Ecstasy) U Benzodiazepines Scrn Urine Cocaine Screen U Marijuana (THC) Screen SARS-CoV-2 (PCR) 08/31/20 05:46 WBC RBC Hgb Hct MCV MCH MCHC RDW Plt Count Neut % (Auto) Lymph % (Auto) Crosby % (Auto) Eos % (Auto) Baso % (Auto) Neut # (Auto) Lymph # (Auto) Crosby # (Auto) Eos # (Auto) Baso # (Auto) PT INR Sodium Potassium Chloride Carbon Dioxide BUN Creatinine Estimated GFR BUN/Creatinine Ratio Glucose Hemoglobin A1c Calcium Magnesium Total Bilirubin AST ALT Alkaline Phosphatase Total Creatine Kinase 73 CK-MB (CK-2) TNP CK-MB (CK-2) Rel Index TNP Troponin I 0.087 H NT-Pro-B Natriuret Pep Total Protein Albumin Globulin Albumin/Globulin Ratio Triglycerides Cholesterol LDL Cholesterol, Calc HDL Cholesterol TSH U Opiates 300ng/mL cut Ur Oxycodone Screen Urine Methadone Screen Ur Barbiturates Screen U Tricyclic Antidepress Ur Phencyclidine Scrn Ur Amphetamines Screen U Methamphetamines Scrn Ur MDMA Scrn (Ecstasy) U Benzodiazepines Scrn Urine Cocaine Screen U Marijuana (THC) Screen SARS-CoV-2 (PCR) [facility] Medical History (Updated 08/31/20 @ 03:43 by VICKI Mosher-SABAS) Glaucoma History of coma History of heart attack History of stroke History of stroke Sleep apnea Surgical History (Updated 08/31/20 @ 03:43 by VICKI Mosher-SABAS) History of appendectomy History of mandibular surgery History of shoulder surgery Family History (Updated 08/31/20 @ 03:45 by VICKI Mosher-SABAS) Father Pulmonary embolism Heart disease Mother No problems noted. Social History Smoking Status: Former smoker alcohol intake: current Assessment & Plan Assessment & Plan narrative: 1. Acute CVA, present on admission -patient presented new right-sided symptoms and word-finding difficulties, 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 MRI today showed multifocal areas of acute ischemia most notably involving the right posterior temporal occipital lobe, in addition to bilateral cerebellar lesions and thalami. -patient overnight developed an episode of AFib with RVR, given the areas of multiple infarcts this leads to a probable embolic source. -patient has been started on apixaban. He does have some narrowing of his vessels on his MRI as well. -continue PT/OT/speech therapies, according to therapies will try and see if he will qualify for acute rehab. 2. Hypertension, present on admission, new formal diagnosis. -started on oral diltiazem as noted below for atrial fibrillation with improved blood pressures. -he denies prior HTN, but suspect this is somewhat chronic. 3. Obesity as evidence by BMI of 29.1 acute on chronic, present on admission -consideration will be given to dietary counseling 4. Paroxysmal atrial fibrillation with rapid ventricular response, new diagnosis, RVR resolved and now in sinus rhythm. -TTE unremarkable, rate and rhythm currently controlled with oral diltiazem, will continue for now. -started on apixban as noted above. 5. History of prior CVA, history of CAD -continue home medications. May need to revisit ASA given initiation of apixaban as noted above but there is some atherosclerotic disease on vessell imaging. - continue asa and statin therapy. Code status: DNR Surrogate decision maker Dr. Cuco Mercedes ([facility]) COVID PCR: Negative DVT/VTE prophylaxis: Plavix 80 mg and SCDs Dispo: changed to inpatient, plan for acute rehab given multiple areas of infarct and new deficits.
--- NOTE | 2020-08-31 15:20 | CM.DANOTE ---
Patient is a 74 yo male who was admitted on 08/30/20 for Possible Cardiac issues. Pt has [employer] MCR and [employer] for insurance and his PCP is not listed. EMR was reviewed. Per MD, pt with hx of CVA x3 with some residual deficits and now with new AFIB w/ RVR and multiple infarcts. PT/OT/ST ordered and per therapies pt could likely benefit from Acute Inpt Rehab. SW met bedside with pt and his friend/support Galilea [phone] who seems to live locally and help pt with errands and tasks on occasion informally. Pt confirmed he still lives at home alone, mostly independent, and denies any local family or any hx of HH or SNF after previous CVA's. SW discussed recommendation of Acute Rehab and provided the closest options of [facility] in [place] and [facility]. Pt hesitant as he states he has projects going on at my apt with renovations but after encouragement from Galilea pt is willing for SW to make referral to [facility] to determine if he meets criteria and then if agreeable then [employer] auth for inpt rehab. Friend Galilea confirms that she could provide transport to Inpt Rehab if pt gets accepted as SW discussed that Inpt Rehab does not provide their own transportation. SW called [facility] admissions [place] with new referral and she is willing to review and [employer] not a barrier and SW faxed clinicals to review. Plan: SW to follow closely to determine if pt meets criteria for Acute Inpt Rehab when medically stable for d/c. CARLOS Vaca Discharge Planning/Care Management CM Discharge Assessment Start: 08/31/20 15:18 Freq: Status: Active Protocol: Document 08/31/20 15:19 BF (Rec: 08/31/20 15:20 BF [id number]) Discharge Planning Assessment Assigned Morphology Teacher CARLOS Gonsales DPOA/Assigned Designee Name Cuco Mercedes Contact Information [phone] Advance Directives? No: Does not have Advance Directives on File No History Provided By Patient,Medical Record Has Patient been admitted in last 30 No days? Prior Living Arrangements House Household Members none Type of transporation used prior to Drives own vehicle admit Independent with ADL's Yes Is patient alert and oriented? Yes Caregiver for Another No Comment Acute Inpt Rehab for CVA Barriers to Discharge No Discharge Plan Inpatient Rehab Unit Transportation Arrangement friend Galilea can transport at d/c Referrals Initiated Other Additional Comment [facility] Whiteboard Updated in Patient Room with Yes name and ext. # of Morphology Teacher Review Status In Process Please Provide Date Initial DC 08/31/20 Assessment Was Performed Next Review Type Continued Stay Review
--- NOTE | 2020-08-31 15:37 | PT.IIE ---
Medical History (Last Updated 08/31/20 @ 03:43 by Mara Troy, [facility]) Glaucoma History of coma History of heart attack History of stroke History of stroke Sleep apnea Physical Therapy Inpatient Evaluation/Re-Eval M1 PT/OT-IP Prior Functional Status Start: 08/31/20 08:41 Freq: NEEDED Status: Active Protocol: Document 08/31/20 14:27 (Rec: 08/31/20 15:37 [id number]) Medical Review Prior Functional Status Medical History Reviewed Yes Diet/Fluid Consistency Regular Communication no deficits noted prior to admission slight blurry vision from previous stroke. Mobility and Gait pt states he has been using SPC for the past 2 weeks d/t decreased balance. Was not using AD 2 months ago. L leg weakness from previous stroke Activities of Daily Living and IADL's ADLs and IADLs independently. He was driving until last week d/t increased blurry vision. 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 lives on 3rd floor of a Condo on [address] in [place]. Home Environment Standard Height Toilet,Walk in Shower,Tub/Shower,Elevator Home Equipment Straight Cane,Grab Bars Near Toilet,Grab Bars In Shower Employment Status Retired Additional Social History Comment pt lives alone in [place]. He states that approximately 10 days ago he felt a sensation the left side of his head that he described as ? popcorn popping. He was also having some blurry vision. He is also having some weakness on his right side. Some of the symptoms have improved since the onset but none of them have completely resolved. M2 PT-IP Current Condition Start: 08/31/20 08:41 Freq: NEEDED Status: Active Protocol: Document 08/31/20 14:27 (Rec: 08/31/20 15:37 [id number]) Physical Therapy Current Condition Current Condition Evaluation Date 08/31/20 Treatment Diagnosis Possible stroke, decreased balance, difficulty in walking Onset Date 10 days ago Weight Bearing Status Weight Bearing Status Weight Bear as Tolerated M3 PT-IP Subjective Start: 08/31/20 08:41 Freq: NEEDED Status: Active Protocol: Document 08/31/20 14:27 (Rec: 08/31/20 15:37 [id number]) Subjective Physical Therapy Visit Type Type Initial Evaluation Visit Start Time 13:45 Visit Stop Time 14:25 Total Visit Minutes 40 Notes MRI this am: Multifocal areas of acute ischemia most notably involving the right posterior temporal occipital lobe, in addition to sub 5 mm areas involving cerebellar hemispheres and thalami bilaterally. 50% focal stenosis at the origin of the left ICA. Number of CARPET INSTALLER HELPER Visits 0 Physical Therapy Visit Comments Patient Comments Im pretty weak and not feeling fully myself Patient Goals to return home. Therapy Pain Assessment Pain Present Pain Present Denied Pain M4 PT-IP Mobility and Gait Start: 08/31/20 08:41 Freq: NEEDED Status: Active Protocol: Document 08/31/20 14:27 (Rec: 08/31/20 15:37 [id number]) PT-Bed Mobility Assessment Supine to Sit Supine to Sit Contact Guard Assistance,Head of Bed Elevated,Bedrails Scooting Scooting to Edge of Bed Contact Guard Assistance PT-Transfer Assessment Sit to and From Stand Sit to and from Stand Minimal Assistance,1 Person Assistance,Use of Upper Extremities Equipment Transfer Assistive Device Gait Belt,Front Wheeled Walker Orthotic/Prosthetic Devices or Brace: No Transfers Transfer Destination Bed,Chair Transfer Technique Stand Step Pivot Transfer Ability Level of Assist Moderate Assistance,1 Person Assistance,Use of Upper Extremities Comments Mobility Comments Pt was in bed upon PT arrival. He agreed to have PT assessment and he did report being tired today. Pt initially got up from supine to long sit with assistance from bed rails very slowly. He did use his UEs often for bed mobility and scooting laterally at EOB. He then attempted to stand up without walker but he lost balance and sat back in bed. Pt used FWW again to stand up with min A and noticed pt tends to WB through midfoot<> heels. Pt then walked slowly and transferred to chair with min A slowly. After neuro assignment, pt walked a lap of the [facility] and he amb with small steps with his head rotated to R. Pt stated this helped his vision but he did have difficulty catching his L side of the walker into door frame and obstacles. Min A needed for cueing. Pt overall presented a wobbly gait with narrow base of support. Pt felt unsafe to use SPC at this point and did c/o his balance is not as good as couple weeks ago. Pt returned to his room with FWW and sat on chair. Call light placed within reach. Asked FENCE ERECTOR SUPERVISOR to apply chair alarm. Gait Assessment Gait Gait Assistance Required: Minimum Assistance Distance (Feet) 212 Able to Maintain Weight Bearing Status Yes During Gait Assistive Devices Assistive Device Gait Belt,Front Wheeled Walker Orthotic/Prosthetic Devices or Brace: No Gait Deviations General Gait Pattern Ataxic,Decreased Stride Length ,Decreased Feet Clearance, Flexed Trunk,Narrow Based Gait Factors Limiting Gait Function Factors Limiting Gait Function Decreased Activity Tolerance, Decreased Strength,Poor Balance,Poor Safety Awareness Comments Gait Comments see above. Pt amb with NBOS, and a wobbly gait. Needed FWW and felt unsafe to use SPC at this point. Stair Climbing Assessment Comments Stair Climbing Comments have not assessed. PT-Balance Assessment Sitting Balance and Reactions Static Sitting Balance Ability Normal Dynamic Sitting Balance Ability Good Standing Balance and Reactions Static Standing Balance Ability Good Dynamic Standing Balance Ability Fair Device Used FWW Comments Other Balance Tests/Deviations/Treatment retropulsion and excessive : lateral weight shift during STS/ upon standing without support pt tend to lean against table to stand. M5 PT-IP Objective Assessments Start: 08/31/20 08:41 Freq: NEEDED Status: Active Protocol: Document 08/31/20 14:27 (Rec: 08/31/20 15:37 [id number]) Orientation Orientation/Cognition Level of Alertness Alert Orientation Name,Age,Birthday,Month,Date, Year,Day of Week,Place, Situation Language Function Ability Word Finding Difficulties Safety Awareness Decreased Safety Awareness Memory Description Short Term Impaired Comments SLUMs test from OT assessment Gross Range of Motion Upper Extremity ROM Assessment Right Impaired Impairments unable to reach overhead on RUE Lower Extremity ROM Assessment Bilaterally Impaired Impairments R>L weakness Strength Upper Extremity Strength Assessment Right Impaired Shoulder 3-/5 Elbow 5/5 Wrist 4/5 Hand 4/5 Lower Extremity Strength Assessment Bilaterally Impaired Hip 4-/5 Knee 4-/5 Ankle 4-/5 Comments Strength Comments noticed hand repair manager is significantly less on R hand pt stated residual weakness on L from his previous stroke. Coordination Assessment Gross Coordination Gross Coordination Impaired Assessment Finger to Nose Test Minimal Impairment Pronation/Supination Test Minimal Impairment Foot Tapping Test Minimal Impairment Heel on [place] Test Minimal Impairment Coordination Comments overall slower Sensation Assessment Sensation Gross Sensation WNL Light Touch Intact Proprioception (Position) Intact Muscle Tone Muscle Tone WNL Yes Other Assessments Other Other Assessments pursuit and saccade = both produces symptoms of dizziness for both horizontal and vertical direction VOR1 = dizziness noted. nystagmus noted. decreased L peripheral vision field noted. M6 PT-IP Treatment Start: 08/31/20 08:41 Freq: NEEDED Status: Active Protocol: Document 08/31/20 14:27 (Rec: 08/31/20 15:37 [id number]) Physical Therapy Treatment Education Education Provided Safety M7 PT-IP Assessment and Plan Start: 08/31/20 08:41 Freq: NEEDED Status: Active Protocol: Document 08/31/20 14:27 HH (Rec: 08/31/20 15:37 [id number]) PT Summary Assessment and Plan Potential Rehabilitation Potential Good Status of Condition at Evaluation Evolving Summary Impairments ROM,Strength,Balance, Coordination,Sensation, Cognition,Bed Mobility, Transfers,Gait,Activity Tolerance Assessment Summary Moustapha is a 74 yo male with hx of 3 previous strokes admitted to [facility] for new onset of stroke symptoms happened 10 days ago. Upon assessment, He is slightly slurred and delayed speech and thought process. Word- finding difficulty. Pt also presents some sort of nystagmus with pursuit/saccade / VOR test who c/o dizziness, along with decreased L peripheral visual field. His RUE is noticeable weaker than LUE. Sensation = WFL. During mobility, pt needed min to mod A with FWW d/t his poor balance. He tends to amb with narrow ZAFAR, small steps and caught his walker up with obstacles on his L side. He is unsafe to mobilze safely and he is far from his baseline who normally doesnt use AD. Did discuss with pt his currrent situation with high fall risk, and he agrees with the option of acute rehab to improve his overall mobility and strength prior to go home. Notified SW. Goals Bed Mobility Goal Independent Transfer Goal Independent,Cane,Front Wheeled Walker Gait Goal Independent,Cane,Front Wheel Walker Gait Distance 500 Days to Meet Goals 5 Frequency of Treatment Frequency Of Treatment Once a Day Treatment Plan Physical Therapy Treatment Plan Bed Mobility Training,Transfer Training,Gait Training, Therapeutic Exercise,Balance Retraining,Discharge Planning, Hot or Cold Pack,Neuromuscular Re-ed,Coordination Retraining Other Recommendations and Next Treatment continue gait training Focus functional testing if needed, 5 times STS, TUG, tinneti, DGA Recommendations To Nursing Amount of Assist Needed 1 Person Assist Discharge Recommendations PT Discharge Recommendations Acute Rehab Equipment Needed for Home Before if go home, FWW if pt doesnt Discharge progress Transportation Needs at Discharge Private Vehicle
--- NOTE | 2020-08-31 17:18 | ST.IPCSEOM ---
Visit Care Team Role Provider Type Eduardo Cuellar DO Emergency Provider Physician Specialty: Emergency Medicine Address: [address] [place] [address], [id number] Email: [email or web address] Mara Troy [facility] Admit Provider Physician Attending Provider Specialty: Medical Address: [address] [place] [address], [id number] Email: Past Medical History (Last Updated 08/31/20 @ 03:43 by Mara Troy [facility]) Glaucoma (Medical) History of appendectomy (Medical) History of coma (Medical) History of heart attack (Medical) History of mandibular surgery (Medical) History of shoulder surgery (Medical) History of stroke (Medical) History of stroke (Medical) Sleep apnea (Medical) Speech-Language Pathology Swallow Evaluation ORACLE APPLICATION ARCHITECT Clinical Instructor Line Start: 08/31/20 16:53 Freq: Status: Active Protocol: Document 08/31/20 17:17 ML (Rec: 08/31/20 17:17 ML [id number]) Clinical Instructor Signature Clinical Instructor Clinical Instructor Yes ORACLE APPLICATION ARCHITECT Clinical Swallow Evaluation Start: 08/31/20 12:04 Freq: Status: Active Protocol: Document 08/31/20 12:05 EB (Rec: 08/31/20 12:27 EB [id number]) Clinical Swallow Evaluation Session Time Visit Start Time 11:10 Visit Stop Time 12:00 Total Visit Minutes 50 Referral Referring Provider Mara Troy Reason for Referral Stroke Protocol Setting Assessment Location Acute Care Visit Type Note Type Initial evaluation Patient Information Identification Type Name,Wristband History Per H&P: Patient is a 74-year- old male Moustapha Coppola who presented today to the ED for a chief complaint of possible stroke/neuro deficit. Patient states that he has had 3 strokes in the past here for evaluation, and he thinks is another stroke. He states that approximately 10 days ago he felt a sensation the left side of his head that he described as ?popcorn popping ?shortly afterwards he started to have some slurring of his words which he states was new for him. He was also having some blurry vision. He is also having some weakness on his right side. Some of the symptoms have improved since the onset but none of them have completely resolved. He did have some deficits from his prior strokes but with time all those deficits have improved and he thinks what he is experiencing today are new . He has not tried anything for symptoms prior to arrival. He states the reason he came in today is because he talked with a friend who thought he should come in for evaluation. 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 Patient also has a history of heart attack, sleep apnea, and glaucoma. Patient reports he only takes aspirin daily. Upon admit to the floor patient complains of only continuing mild slurred speech and no other deficits at this time. Subjective Observations Pt was returning from MRI upon ORACLE APPLICATION ARCHITECT and ORACLE APPLICATION ARCHITECT student's arrival , during assessment pt was alert, cooperative, and sitting upright in bed. Pt denied any previous difficulty with swallowing with the exception of gatorade, likely due to the shape of the bottle . Pt reported feeling some fatigue and dizziness prison through the assessment but was able to complete all trials. Pt also reported that he has noticed a slurring and slower quality of speech since stroke symptoms began. Reported by Patient Current Diet Nothing by mouth Baseline Feeding Method Independent in self-feeding Patient Questionnaire No Objective Assessment Mental Status Alert,Responsive,Cooperative Oral Integrity WFL Dentition Within normal limits Lip Function Mild impairment Observation of Lips at Rest Symmetrical Pucker Reduced strength Lip Retraction Within normal limits Alternating Pucker/Lip Retraction Incoordination Tongue Function Within normal limits Observations of Tongue at Rest Within normal limits Tongue Protrusion Within normal limits Tongue Retraction Within normal limits Tongue Lateralization Within normal limits Observations of Jaw at Rest Within normal limits Hard/Soft Palate Function Within normal limits Observations of Hard/Soft Palate Within normal limits Nasality Hypernasal Phonation Breathy,Reduced loudness Respiratory Sufficiency Mild impairment,Moderate impairment Comment Pt had natural dentition and appeared to be WNL for his age . Pt demonstrated mild lip impairment in lack of strength and coordination suggesting overall weakness. Pt reported that he felt he was running out of breath more quickly than normal. This observation was also noted by frequent inhalation and an overall breathy quality to his voice. Pt's overall speech was slurred and imprecise, especially with plosives (e.g. /b/, /p/, /k/) and multi- syllabic words. Food and Liquid Trials Position During Assessment Upright (90 degrees) Liquids Trialed Ice chips,Thin,[place] Solids Trialed Puree,Dysphagia Mechanical, Dysphagia Advanced,Regular Administration Type Tea spoon,Cup single sip,Cup consecutive sips,Straw Oral Impairment Within functional limits Oral Phase Comments Pt had a slightly slower rate of chewing, but overall, oral phase was WNL. Pharyngeal Impairment Within functional limits Pharyngeal Phase Comments Pt's pharyngeal phase appeared to be WFL. Pt noted mild difficulty with dry texture ( cracker) but was able to safely swallow it. Pt also reported that he felt it was easier to drink via a cup instead of a straw and that nectar thick was easier than thin consistency. Nurse and OT reported pt coughing with saliva so ongoing assessment is warranted. Pt's voice quality remained stable throughout trials and showed no obvious s/s of pentration or aspiration during trials. Once he coughed on saliva, pt reported that this has been occuring prior to stroke once or twice a day. Fatigue/Endurance Mild fatigue Comment Shelter through trials, pt reported feeling slightly tired and a little dizzy. Results Pt's oral and pharyngeal phase appear to be WFL. Pt's voice quality stayed the same throughout the assessment, which indicates that there was no residue in his airway. Pt did not show any obvious s/s of pentration or aspiration across trials except with mild coughing on his saliva which reports has been occurring prior to his stroke once or twice a day. Findings Swallowing Function Within functional limits Severity of Swallow Impairment Within functional limits Comment Upon time of assessment, pt's swallow appears to be within functional limits. Overall weakness with lips and breath support were noted and pt was given education regarding s/s of aspiration and penetration. While pt appeared to tolerate all trials presented, it is recommended he primarily consumes what is most comfortable for him at this present time (e.g. drinking from cup, nectar thick). Speech department will continue to follow pt's swallowing for any changes in swallow safety. It is recommended that pt recieve assessment for receptive and expressive language to further guide plan of care. Impact on Safety and Functioning No limitations Recommendations Recommended Solids Regular Recommended Liquids Thin Safety Precautions/Swallowing Feed only when alert,Reduce Recommendations distractions,Remain upright ( 90 degrees) during all oral intake,Upright position at least 30 minutes after meals Medication Recommendations As Tolerated Discharge Recommendations Home,Outpatient therapy Education Patient/Caregiver Education Described results of evaluation,Patient expressed understanding of evaluation, Patient expressed agreement with goals & treatment plans, Patient expressed understanding of safety precautions,Patient expressed understanding of feeding recommendations Goals Short-term Goals 1. Pt will continue to follow safe swallow strategies to reduce risk penetration and aspiration. 2. Pt will participate in expressive and receptive language assessments to further guide plan of care. Long-term Goals Pt will demonstrate continual tolerance of least restrictive diet.
--- NOTE | 2020-08-31 17:21 | PC.NURSE ---
Addendum entered by Malissa Guerrero R.N. 08/31/20 20:02: Visitor practicing acupuncture on patient. Patient and exercise instructor informed that we can't allow someone from outside the hospital to visit and perform invasive (even minimally invasive) practices. Both verbalize understanding. Original Note: EVENING SHIFT Report received, care assumed 1530. A&Ox4. VSS. Denies pain. NIH score of 2 for slurred/mumbled speech, slight delay in response time and some mild difficulty finding words. Reports some difficulty get up and around; working with rehab services and ambulated in hallway today. Discussed plan of care; patient verbalizes understanding of diagnosis and POC.
[2020-08-31] MEDS: ATORVASTATIN 20 MG TABLET 80 MG PO (21:27)
[2020-09-01] VITALS (15 sets, daily range): BP systolic 120–139; BP diastolic 62–89; PULSE 50–67; RESP 14–18; TEMP 36.3–36.6; O2SAT 92–97
--- NOTE | 2020-09-01 02:08 | PC.NURSE ---
This RN found 1 intact pill on patient's bed. White, oval/elliptical shape, stamped [id number] on one side and APO on the other. Determined to be atorvastatin calcium 20 mg. Disposed of properly. Patient rec'd only 60 mg of 80 mg prescribed atorvastatin at bedtime.
[2020-09-01 06:48] LABS: Troponin I 0.027 ng/mL (0.01-0.034)
--- NOTE | 2020-09-01 08:09 | PC.NURSE ---
Day shift: Dr Burns informed that Pt's BP Rasta at 45 HR. Will continue to monitor. No new orders. Call light in reach.
[2020-09-01] MEDS: APIXABAN 5 MG TABLET PO ×2 (09:36→20:31)
[2020-09-01] MEDS: ASPIRIN EC 81 MG TABLET PO (09:36)
--- NOTE | 2020-09-01 10:08 | PT.IPTN ---
Current Diagnoses Cerebral infarction, unspecified (08/31/20) Physical Therapy Treatment Note M2 PT-IP Current Condition Start: 08/31/20 08:41 Freq: NEEDED Status: Active Protocol: Document 08/31/20 14:27 HH (Rec: 08/31/20 15:37 HH [id number]) Physical Therapy Current Condition Current Condition Evaluation Date 08/31/20 Treatment Diagnosis Possible stroke, decreased balance, difficulty in walking Onset Date 10 days ago Weight Bearing Status Weight Bearing Status Weight Bear as Tolerated M3 PT-IP Subjective Start: 08/31/20 08:41 Freq: NEEDED Status: Active Protocol: Document 09/01/20 09:42 CLB (Rec: 09/01/20 11:59 CLB [id number]) Subjective Physical Therapy Visit Type Type Treatment Note Visit Start Time 09:42 Visit Stop Time 10:08 Total Visit Minutes 26 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 of 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 1 Physical Therapy Visit Comments Patient Comments I'm feeling weaker today Therapy Pain Assessment Pain Present Pain Present Denied Pain M4 PT-IP Mobility and Gait Start: 08/31/20 08:41 Freq: NEEDED Status: Active Protocol: Document 09/01/20 09:42 CLB (Rec: 09/01/20 11:59 CLB [id number]) PT-Bed Mobility Assessment Supine to Sit Supine to Sit Contact Guard Assistance,Head of Bed Elevated,Bedrails Sit to Supine Sit to Supine Contact Guard Assistance,Head of Bed Elevated,Bedrails Scooting Scooting to Edge of Bed Contact Guard Assistance PT-Transfer Assessment Sit to and From Stand Sit to and from Stand Minimal Assistance,1 Person Assistance,Use of Upper Extremities Equipment Transfer Assistive Device Gait Belt,Front Wheeled Walker Orthotic/Prosthetic Devices or Brace: No Transfers Transfer Destination Bed Transfer Technique Stand Step Pivot Transfer Ability Level of Assist Moderate Assistance,1 Person Assistance,Use of Upper Extremities Comments Mobility Comments Pt required CGA for bed mobility with extra time for motor planning as pt stands he requires Min A with cues for hand placement and posture as pt demontrates a posterior lean. Pt able to correct posture after verbal cues but continues to require Min A. Pt ambulates in zazu[place] ~250ft w/ FWW/Min A and verbal cues not to cook pickled meat walker but to push continuously. Pt performs standing marches and standing balance then returns to bed CGA. Pt left in bed with alarm on and ST present. Gait Assessment Gait Gait Assistance Required: Minimum Assistance Distance (Feet) 250 Able to Maintain Weight Bearing Status Yes During Gait Assistive Devices Assistive Device Gait Belt,Front Wheeled Walker Orthotic/Prosthetic Devices or Brace: No Gait Deviations General Gait Pattern Ataxic,Decreased Stride Length ,Decreased Feet Clearance, Flexed Trunk,Narrow Based Gait Factors Limiting Gait Function Factors Limiting Gait Function Decreased Activity Tolerance, Decreased Strength,Poor Balance,Poor Safety Awareness Comments Gait Comments Pt requires verbal cues for walker management for safety and for posture to prevent posterior lean during gait. M5 PT-IP Objective Assessments Start: 08/31/20 08:41 Freq: NEEDED Status: Active Protocol: Document 08/31/20 14:27 HH (Rec: 08/31/20 15:37 HH [id number]) Orientation Orientation/Cognition Level of Alertness Alert Orientation Name,Age,Birthday,Month,Date, Year,Day of Week,Place, Situation Language Function Ability Word Finding Difficulties Safety Awareness Decreased Safety Awareness Memory Description Short Term Impaired Comments SLUMs test from OT assessment Gross Range of Motion Upper Extremity ROM Assessment Right Impaired Impairments unable to reach overhead on RUE Lower Extremity ROM Assessment Bilaterally Impaired Impairments R>L weakness Strength Upper Extremity Strength Assessment Right Impaired Shoulder 3-/5 Elbow 5/5 Wrist 4/5 Hand 4/5 Lower Extremity Strength Assessment Bilaterally Impaired Hip 4-/5 Knee 4-/5 Ankle 4-/5 Comments Strength Comments 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 Coordination Assessment Gross Coordination Gross Coordination Impaired Assessment Finger to Nose Test Minimal Impairment Pronation/Supination Test Minimal Impairment Foot Tapping Test Minimal Impairment Heel on [place] Test Minimal Impairment Coordination Comments overall slower Sensation Assessment Sensation Gross Sensation WNL Light Touch Intact Proprioception (Position) Intact Muscle Tone Muscle Tone WNL Yes Other Assessments Other Other Assessments pursuit and saccade = both produces symptoms of dizziness for both horizontal and vertical direction VOR1 = dizziness noted. nystagmus noted. decreased L peripheral vision field noted. M6 PT-IP Treatment Start: 08/31/20 08:41 Freq: NEEDED Status: Active Protocol: Document 09/01/20 09:42 CLB (Rec: 09/01/20 12:02 CLB [id number]) Physical Therapy Treatment Exercises Exercises Straight Leg Raises,Seated Knee Flexion/Extension Other Treatments Other Treatment Performed Standing marches and Balance: NBOS, tandem EO/EC M7 PT-IP Assessment and Plan Start: 08/31/20 08:41 Freq: NEEDED Status: Active Protocol: Document 09/01/20 09:42 CLB (Rec: 09/01/20 11:59 CLB [id number]) PT Summary Assessment and Plan Potential Rehabilitation Potential Good Status of Condition at Evaluation Evolving Summary Impairments ROM,Strength,Balance, Coordination,Sensation, Cognition,Bed Mobility, Transfers,Gait,Activity Tolerance Assessment Summary Pt remains below his baseline requiring CGA for bed mobility with increased time to perform all tasks due to motor planning difficulty.Pt has word finding difficulties but given time pt is able to answer questions appropriately and is able to follow directions. Pt requiring Min A during sit-stand and with gait for safety due to NBOS and at times scissor stepping, pt also demonstrates posterior lean requiring verbal cues for posture. Pt is eager to work with PT and would benefit from Acute care rehab to improve strength for functional independent mobility. Goals Bed Mobility Goal Independent Transfer Goal Independent,Cane,Front Wheeled Walker Gait Goal Independent,Cane,Front Wheel Walker Gait Distance 500 Days to Meet Goals 5 Frequency of Treatment Frequency Of Treatment Once a Day Treatment Plan Physical Therapy Treatment Plan Bed Mobility Training,Transfer Training,Gait Training, Therapeutic Exercise,Balance Retraining,Discharge Planning, Hot or Cold Pack,Neuromuscular Re-ed,Coordination Retraining Other Recommendations and Next Treatment continue gait training Focus functional testing if needed, 5 times STS, TUG, tinneti, DGA Recommendations To Nursing Amount of Assist Needed 1 Person Assist Discharge Recommendations PT Discharge Recommendations Acute Rehab Equipment Needed for Home Before if go home, FWW if pt doesnt Discharge progress Transportation Needs at Discharge Private Vehicle
--- NOTE | 2020-09-01 10:08 | PT.IPTN ---
Physical Therapy Treatment Note M2 PT-IP Current Condition Start: 08/31/20 08:41 Freq: NEEDED Status: Active Protocol: Document 08/31/20 14:27 HH (Rec: 08/31/20 15:37 HH [id number]) Physical Therapy Current Condition Current Condition Evaluation Date 08/31/20 Treatment Diagnosis Possible stroke, decreased balance, difficulty in walking Onset Date 10 days ago Weight Bearing Status Weight Bearing Status Weight Bear as Tolerated M3 PT-IP Subjective Start: 08/31/20 08:41 Freq: NEEDED Status: Active Protocol: Document 09/01/20 09:42 CLB (Rec: 09/01/20 11:59 CLB [id number]) Subjective Physical Therapy Visit Type Type Treatment Note Visit Start Time 09:42 Visit Stop Time 10:08 Total Visit Minutes 26 Number of 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 1 Physical Therapy Visit Comments Patient Comments I'm feeling weaker today Therapy Pain Assessment Pain Present Pain Present Denied Pain M4 PT-IP Mobility and Gait Start: 08/31/20 08:41 Freq: NEEDED Status: Active Protocol: Document 09/01/20 09:42 CLB (Rec: 09/01/20 11:59 CLB [id number]) PT-Bed Mobility Assessment Supine to Sit Supine to Sit Contact Guard Assistance,Head of Bed Elevated,Bedrails Sit to Supine Sit to Supine Contact Guard Assistance,Head of Bed Elevated,Bedrails Scooting Scooting to Edge of Bed Contact Guard Assistance PT-Transfer Assessment Sit to and From Stand Sit to and from Stand Minimal Assistance,1 Person Assistance,Use of Upper Extremities Equipment Transfer Assistive Device Gait Belt,Front Wheeled Walker Orthotic/Prosthetic Devices or Brace: No Transfers Transfer Destination Bed Transfer Technique Stand Step Pivot Transfer Ability Level of Assist Moderate Assistance,1 Person Assistance,Use of Upper Extremities Comments Mobility Comments Pt required CGA for bed mobility with extra time for motor planning as pt stands he requires Min A with cues for hand placement and posture as pt demonstrates a posterior lean. Pt able to correct posture after verbal cues but continues to require Min A. Pt ambulates in zazu[place] ~250ft w/ FWW/Min A and verbal cues not to pickle processor walker but to push continuously. Pt performs standing marches and standing balance then returns to bed CGA. Pt left in bed with alarm on and ST present. Gait Assessment Gait Gait Assistance Required: Minimum Assistance Distance (Feet) 250 Able to Maintain Weight Bearing Status Yes During Gait Assistive Devices Assistive Device Gait Belt,Front Wheeled Walker Orthotic/Prosthetic Devices or Brace: No Gait Deviations General Gait Pattern Ataxic,Decreased Stride Length ,Decreased Feet Clearance, Flexed Trunk,Narrow Based Gait Factors Limiting Gait Function Factors Limiting Gait Function Decreased Activity Tolerance, Decreased Strength,Poor Balance,Poor Safety Awareness Comments Gait Comments Pt requires verbal cues for walker management for safety and for posture to prevent posterior lean during gait. M5 PT-IP Objective Assessments Start: 08/31/20 08:41 Freq: NEEDED Status: Active Protocol: Document 08/31/20 14:27 HH (Rec: 08/31/20 15:37 [id number]) Orientation Orientation/Cognition Level of Alertness Alert Orientation Name,Age,Birthday,Month,Date, Year,Day of Week,Place, Situation Language Function Ability Word Finding Difficulties Safety Awareness Decreased Safety Awareness Memory Description Short Term Impaired Comments SLUMs test from OT assessment Gross Range of Motion Upper Extremity ROM Assessment Right Impaired Impairments unable to reach overhead on RUE Lower Extremity ROM Assessment Bilaterally Impaired Impairments R>L weakness Strength Upper Extremity Strength Assessment Right Impaired Shoulder 3-/5 Elbow 5/5 Wrist 4/5 Hand 4/5 Lower Extremity Strength Assessment Bilaterally Impaired Hip 4-/5 Knee 4-/5 Ankle 4-/5 Comments Strength 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 Coordination Assessment Gross Coordination Gross Coordination Impaired Assessment Finger to Nose Test Minimal Impairment Pronation/Supination Test Minimal Impairment Foot Tapping Test Minimal Impairment Heel on [place] Test Minimal Impairment Coordination Comments overall slower Sensation Assessment Sensation Gross Sensation WNL Light Touch Intact Proprioception (Position) Intact Muscle Tone Muscle Tone WNL Yes Other Assessments Other Other Assessments pursuit and saccade = both produces symptoms of dizziness for both horizontal and vertical direction VOR1 = dizziness noted. nystagmus noted. decreased L peripheral vision field noted. M6 PT-IP Treatment Start: 08/31/20 08:41 Freq: NEEDED Status: Active Protocol: Document 08/31/20 14:27 HH (Rec: 08/31/20 15:37 [id number]) Physical Therapy Treatment Education Education Provided Safety M7 PT-IP Assessment and Plan Start: 08/31/20 08:41 Freq: NEEDED Status: Active Protocol: Document 09/01/20 09:42 CLB (Rec: 09/01/20 11:59 CLB [id number]) PT Summary Assessment and Plan Potential Rehabilitation Potential Good Status of Condition at Evaluation Evolving Summary Impairments ROM,Strength,Balance, Coordination,Sensation, Cognition,Bed Mobility, Transfers,Gait,Activity Tolerance Assessment Summary Pt remains below his baseline requiring CGA for bed mobility with increased time to perform all tasks due to motor planning difficulty.Pt has word finding difficulties but given time pt is able to answer questions appropriately and is able to follow directions. Pt requiring Min A during sit-stand and with gait for safety due to NBOS and at times scissor stepping, pt also demonstrates posterior lean requiring verbal cues for posture. Pt is eager to work with PT and would benefit from Acute care rehab to improve strength for functional independent mobility. Goals Bed Mobility Goal Independent Transfer Goal Independent,Cane,Front Wheeled Walker Gait Goal Independent,Cane,Front Wheel Walker Gait Distance 500 Days to Meet Goals 5 Frequency of Treatment Frequency Of Treatment Once a Day Treatment Plan Physical Therapy Treatment Plan Bed Mobility Training,Transfer Training,Gait Training, Therapeutic Exercise,Balance Retraining,Discharge Planning, Hot or Cold Pack,Neuromuscular Re-ed,Coordination Retraining Other Recommendations and Next Treatment continue gait training Focus functional testing if needed, 5 times STS, TUG, tinneti, DGA Recommendations To Nursing Amount of Assist Needed 1 Person Assist Discharge Recommendations PT Discharge Recommendations Acute Rehab Equipment Needed for Home Before if go home, FWW if pt doesnt Discharge progress Transportation Needs at Discharge Private Vehicle
[2020-09-01] MEDS: TIMOLOL 0.5% OPHTH 1 EACH EYE-BOTH (10:27)
--- NOTE | 2020-09-01 12:15 | OT.IP.TRT ---
Current Diagnoses Cerebral infarction, unspecified (08/31/20) Occupational Therapy Treatment Note M2 OT-IP Current Condition Start: 08/31/20 15:04 Freq: Status: Active Protocol: Document 08/31/20 15:05 [facility] (Rec: 08/31/20 15:40 [facility] [id number]) Occupational Therapy Current Condition Current Condition Evaluation Date 08/31/20 Treatment Diagnosis Acute CVA Diagnosis Onset Date 08/30/20 M3 OT- IP Subjective and Pain Start: 08/31/20 15:04 Freq: Status: Active Protocol: Document 09/01/20 12:20 [facility] (Rec: 09/01/20 12:49 [facility] [id number]) OT- Subjective Occupational Therapy Visit Type Type Treatment Note Visit Start Time 11:35 Visit Stop Time 12:15 Total Visit Minutes 40 Occupational Therapy Visit Comments Patient Comments Pt states feels a lot better today as finally slept well. Patient/Caregiver Goals To go to acute rehab. OT Pain Assessment Pain When Pain Assessed At Rest Pain Present Pain Present Denied Pain M4 OT- IP ADL's Start: 08/31/20 15:04 Freq: Status: Active Protocol: Document 09/01/20 12:20 [facility] (Rec: 09/01/20 12:49 [facility] [id number]) OT [id number] Comments OT Self-Feeding Comments Pt able to coordinate better hand to mouth. Pt using technique of raising up the spoon first to eye level so about to see to navigate to his mouth. Noted pt still having decreased control on his saliva. OT ADL-Grooming General Evaluation Grooming Ability Standby Assistance Comments OT Grooming Comments Able to stand with pt CGA while doing grooming needs. OT ADL-Oral Care General Eval Oral Care Ability Independent OT ADL-Dressing General Eval Lower Body Dressing Ability Moderate Assistance Areas Needing Assistance Pants/Shorts Comments OT Dressing Comments Pt still needing MIN/MODA to get on his pants while standing and heavily leaning to the chair and having move difficulty to get his LLE in to the short today. OT ADL-Toileting Comments OT Toileting Comments Pt not having to go. OT ADL-Bathing Comments OT Bathing Comments NOt peformed. M6 OT- IP Functional Cognition Start: 08/31/20 15:04 Freq: Status: Active Protocol: Document 09/01/20 12:20 [facility] (Rec: 09/01/20 12:49 [facility] [id number]) Cognitive Factors Limiting Selfcare Function Cognitive Ability Level of Alertness Alert Patient Orientation Name,Month,Date,Year,Day of Week,Place,Situation Attention Span Ability Capable of Focused Attention, Capable of Sustained Attention Ability to Follow Commands Able to Follow Multi-Step Commands Memory Description Short Term Impaired Safety Awareness Underestimates Need for Assistance Cognitive Tests SLUMS Able to redo SLUMS and pt able to get 28/30 today. Pt able to recall 3/5 object after time passed, much improved from yesterday. Pt states usually has to write down things often for himself. Cognitive Comments Cognitive Assessment Comments Pt still needing increased time to calculate numbers and get the words out. Pt scored 109 seconds on [place] Making Part B which implies min to moderate impairments for visual attention, task switching, speed of processing , executive functioning, and mental flexibility. Pt scored at 50% for his age group. Pt needing 30seconds to find the letter B. Pt overall thinking clearer and faster today. OT- Vision and Hearing OT- Vision Assessment Vision Assessment Comments Pt still complaining of blurred vision. pt now has his reading glasses here in the hospital. Pt feels motivated and wanting to go to acute rehab to get better especailly for his dynamic balance needs , saliva control, and fluidity of movement. M7 OT- IP Mobility and Balance Start: 08/31/20 15:04 Freq: Status: Active Protocol: Document 09/01/20 12:20 [facility] (Rec: 09/01/20 12:49 [facility] [id number]) OT- Bed Mobility Assessment Supine to Sit Supine to Sit Assist Contact Guard Assistance Sit to Supine Sit to Supine Assist Standby Assistance OT-Transfer Assessment Sit to and From Stand Sit to and from Stand Contact Guard Assistance Transfers Transfer Ability Contact Guard Assistance, Moderate Assistance Devices Transfer Assistive Devices None,Gait Belt,Straight Cane Comments Mobility Comments Pt having difficulty to get his trunk upright for bed mobilty and having to use of bed to assist to get upright otherwsie needing assist from bedrail and phyical assist. Pt tends to lean to the left. Transfer with SPC CGA, vc for pt to slow down. Pt tends to hyperextend at his left knee due to weakness. Attempted to have pt walk without SPC and needing DONNY initially and then loss of balance and needing MODA to help keep from falling posteriorly. OT- Gait Assessment Comments Gait Ability Comments Use of FWW is safer at this time to ensure more symmetrical gait. OT- Balance Assessment Sitting Balance and Reactions Static Sitting Balance Ability Fair Dynamic Sitting Balance Ability Fair Standing Balance and Reactions Static Standing Balance Ability Poor Dynamic Standing Balance Ability Poor Comments Other Balance Tests/Deviations/Treatment At times pt still leaning : backward into posterior tilt. In addition when pt standing tend to have weight on his heels and needing cues to get his weight over his toes as well. Pt not able to withstand min perturbation to the left and having loss of balance and unable to regain his balance without assist of the therapist. M8 OT- IP Objective Assessments Start: 08/31/20 15:04 Freq: Status: Active Protocol: Document 09/01/20 12:20 [facility] (Rec: 09/01/20 12:49 [facility] [id number]) OT- Coordination Assessment Comments Coordination Comments Today pt able to touch his finger to nose with both right and left index finger with no problem and good accuracy. M9 OT- IP Assessment and Plan Start: 08/31/20 15:04 Freq: Status: Active Protocol: Document 09/01/20 12:20 [facility] (Rec: 09/01/20 12:49 [facility] [id number]) OT Summary Assessment and Plan Potential Rehabilitation Potential Excellent Analytic Complexity at Evaluation Moderate Summary OT Impairments Strength,Balance,Functional Cognition,Functional Mobility, Self-Feeding,Grooming,Dressing ,Toileting,Bathing,Toilet Transfers,Shower Transfers, Activity Tolerance Progress Towards Goals Progressing Toward Goals Assessment Summary Pt making good progress with overall cognitive abilities and having good insight to his deficits and need for acute rehab at this time. Pt main deficits are decreased dynamic balance, decreased fluidity of movement and strength for BUE and BLE left greater than right having word finding issues, and overall decreased activity tolerance. Pt is a great candidate for acute rehab to get back to prior level of function and pt has supportive friend to help and could stay with if needed per pt afterwards. Goals Self-Feeding Goal Independent Grooming Goal Independent Dressing Goal Independent Toileting Goal Independent Bathing Goal Independent Shower Transfer Goal Independent Days to Meet Goals 20 Frequency of Treatment Frequency Of Treatment Once a Day Treatment Plan OT Treatment Plan ADL Training,Functional Cognition Training,Functional Mobility,Therapeutic Exercises ,Vision Retraining,Patient/ Family Education,Discharge Planning Other Treatment Recommendations and Next Pt to shower with supervision. Treatment Focus Discharge Recommendations OT Discharge Recommendations Acute Rehab Transportation Needs at Discharge Private Vehicle,Wheelchair/ Cabulance
--- NOTE | 2020-09-01 12:36 | ST.IPTN ---
Visit Care Team Role Provider Type Eduardo Cuellar DO Emergency Provider Physician Address: [address] [place] [address], [id number] [facility] Admit Provider Physician Attending Provider Address: [address] [place] [address], [id number] PATIENT COORDINATOR Treatment Note PATIENT COORDINATOR Clinical Instructor Line Start: 08/31/20 16:53 Freq: Status: Active Protocol: Document 08/31/20 17:17 ML (Rec: 08/31/20 17:17 ML [email or web address]) Clinical Instructor Signature Clinical Instructor Clinical Instructor Yes PATIENT COORDINATOR Treatment Note Start: 09/01/20 12:24 Freq: Status: Active Protocol: Document 09/01/20 12:25 MG (Rec: 09/01/20 12:36 MG [email or web address]) Speech Pathology Treatment Note Session Time Visit Start Time 10:00 Visit Stop Time 10:25 Total Visit Minutes 25 Visit Information Visit Number 2 Setting Treatment Setting Acute Care Visit Type Note Type Treatment Note Next Note Type Next Note Type Treatment Note General Information General Information Patient is a 74-year-old male who presented today to the ED for a chief complaint of possible stroke/neuro deficit. 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 He states that approximately 10 days ago he felt a sensation the left side of his head that he described as ?popcorn popping ?shortly afterwards he started to have some slurring of his words which he states was new for him. He was also having some blurry vision. He is also having some weakness on his right side. Some of the symptoms have improved since the onset but none of them have completely resolved. He did have some deficits from his prior strokes but with time all those deficits have improved and he thinks what he is experiencing today are new . He has not tried anything for symptoms prior to arrival. He states the reason he came in today is because he talked with a friend who thought he should come in for evaluation. 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 Patient also has a history of heart attack, sleep apnea, and glaucoma. Patient reports he only takes aspirin daily. Upon admit to the floor patient complains of only continuing mild slurred speech and no other deficits at this time. Subjective Identification Type Name,ID Wristband Observations/Patient Presentation Pt was working with PT when PATIENT COORDINATOR entered the room. PT was completing their session and pt was agreeable to PATIENT COORDINATOR entering the room. Per notes, OT administered the SLUMS assessment; the pt scored 22/ 30, demonstrating difficulty with short term memory tasks and word finding. Chief Complaint(s) Speech,Language Patient Knowledge/Awareness of PATIENT COORDINATOR Role Good in Treatment Objective Short Term Goals 1. Pt will continue to follow safe swallow strategies to reduce risk penetration and aspiration. 2. Pt will participate in cognitive communication therapy for deficits in word finding and developing strategies he can implement independently Usp Goals Pt will demonstrate continual tolerance of least restrictive diet. Treatment Activities PATIENT COORDINATOR and pt went over and practicing word retrieval strategies and oral motor exercises to improve lip strength and excess drooling. Per pt, he receives acupuncture multiple times a week to improve saliva management. Pt also reports he has had word finding difficulties with 2002, when he had his first stroke. In 2004, pt had his jaw broken to assist with sleep apnea. Pt had no further questions prior to PATIENT COORDINATOR leaving the room. Assessment Patient Response to Treatment Good Rehab Potential Good Impairments Identified Dysarthria,Memory - Short Term ,Speech Intelligibility Progress Towards Goals Good Progress Assessment of Overall Progress Improving Assessment of Improvement Pt reports he is getting better by the day and reports to be having improvements in his speech and swallowing. Pt tolerated breakfast with no overt s/sx of aspiration. Reviewed with Patient Goals,Progress Being Made,Home Exercise Program Patient/Caregiver Understanding Good Plan Comment daily during hospital stay Therapeutic Contents Cognitive-Linguistic Training, Intelligibility,Oral Motor Training Provided Patient/Caregiver Instruction Home Exercise Program,Plan of Care,Questions/Concerns Therapy Recommendations Continue with Current Program
--- NOTE | 2020-09-01 13:31 | CM.DPC ---
Addendum entered by Kavya Galloway LPN 09/01/20 15:10: Bre/MADI/GUCCI has just called to say she is starting the insurance auth request after receiving the ok from her physician. She has left a vm with Marcelle but not yet heard back from her. She said [facility] confusing and asked for a copy of the card. The scanned copy of same is provided now by RYANN Cline and faxed to Bre. Addendum entered by Kavya Galloway LPN 09/01/20 13:53: Noted: admission status: OBS with a change to INPT: 08/31: per UR RN team. Payer: [employer] Original Note: DCP: assessment: case received, EMR reviewed. Discussed in Team Rounds. Recommendation from the therapy team and the hospitalist team continues to be acute INPT rehab. Spoke with Bre/SEAN/ Acute Rehab at [facility] [place] [place] in [facility]. She says she does not yet have an authorization from [employer] but the main concern from her team is the post rehab plan. Met then with pt; introduces self and role. Pt confirms he very much hopes to get to INPT rehab as I want to recover as fully as possible. He at this time is not interested in snf setting as a back up. His post rehab plan If I cannot return to my own place is to go to my friends' home: [place] and his Marcelle: [phone]. He states Marcelle is the primary contact as Cuco has an active practice and is not as readily available. Pt clarifies his living situation: he is currently having his apartment (which he owns) remodeled as is directing the work as I could not find anyone to take on the project. There is an elevator to his apartment so does not need to access stairs. 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 Need for authorization from [employer] for the INPT rehab is discussed. Pt said he had not understood this and this is first year he has not used basic Medicare but is trialling a managed Medicare plan. Bre has been updated on all. PT/OT/SLATE MIXER plus most recent MD progress note/from Dr. Hsu of 08/31 are faxed per her request. She says she will call Marcelle and update her physician and let us know outcome.
--- NOTE | 2020-09-01 19:02 | PC.NURSE ---
Patient complained of dizziness at 1825. Blood pressure 142/74, P 69, 96% on room air. Patient had no complaints about other symptoms. ICU said that the tele reading was normal sinus at the time. Dr. Burns notifed about the changes. Patient stated at 183 that he was not dizzy and that it had passed. Patient was instructed to use his call light if there were any other changes. Patient verbalized understanding. Will continue to monitor for any neuro changes.
[2020-09-01] MEDS: SODIUM CHLORIDE 0.9% FLUSH 10 ML IV (20:31)
[2020-09-01] MEDS: SENNOSIDES 8.6 MG TABLET 17.2 MG PO (20:31)
[2020-09-01] MEDS: ATORVASTATIN 20 MG TABLET 80 MG PO (20:31)
[2020-09-01] MEDS: LATANOPROST 0.005% EYE DROPS 1 EACH EYE-BOTH (20:32)
--- NOTE | 2020-09-01 21:04 | P.PN_ITS ---
Subjective Subjective Date Patient Seen: 09/01/20 Interval history: This is a 74-year-old male with a past medical history of prior strokes and CAD who presented with new speech difficulties and vague right-sided complaints. He was found to have multiple acute infarcts on his MRI and overnight had an episode of atrial fibrillation with rapid ventricular response. His AFib has now returned to normal sinus rhythm. He was started on apixaban. He had been started on diltiazem which was discontinued as patient's heart rate was staying 60 or less and he was getting dizzy. Exam Vital Signs (past 8 hours): - 09/01/20 13:26 09/01/20 15:45 09/01/20 17:00 Temperature 97.5 F L Pulse Rate 67 Respiratory Rate 18 Blood Pressure 127/74 Pulse Oximetry 97 95 96 09/01/20 18:07 Temperature Pulse Rate 59 L Respiratory Rate Blood Pressure 127/74 Pulse Oximetry Oxygen Delivery Method Room Air Oxygen Flow Rate 0 Narrative Exam Narrative: General: Alert and very cooperative male in no acute distress Neurological: Alert and oriented, has mild degree aphasia with word-finding difficulties, has slight left facial asymmetry residual from previous CVA Objective Labs Result Diagrams: 08/31/20 05:46 08/30/20 18:00 Labs: Laboratory Results - last 24 hr 08/31/20 09/01/20 22:50 06:10 Troponin I 0.040 H 0.027 PFSH Medical History (Updated 08/31/20 @ 03:43 by VICKI Mosher-SABAS) Glaucoma History of coma History of heart attack History of stroke History of stroke Sleep apnea Surgical History (Updated 08/31/20 @ 03:43 by DIANE Mosher) History of appendectomy History of mandibular surgery History of shoulder surgery Family History (Updated 08/31/20 @ 03:45 by DIANE Mosher) Father Pulmonary embolism Heart disease Mother No problems noted. Social History household members: none Smoking Status: Former smoker alcohol intake: current Assessment & Plan Assessment & Plan narrative: 1. 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, present on admission -patient presented new right-sided symptoms and word-finding difficulties, 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 MRI showed multifocal areas of acute ischemia most notably involving the right posterior temporal occipital lobe, in addition to bilateral cerebellar lesions and thalami. -echo showed normal LV, LVEF 60-65%, normal RV, mild TR -patient overnight developed an episode of AFib with RVR, given the areas of multiple infarcts this leads to a probable embolic source. -patient has been started on apixaban. He does have some narrowing of his vessels on his MRI as well. -continue PT/OT/speech therapies, according to therapies will try and see if he will qualify for acute rehab. 2. Hypertension, present on admission, new formal diagnosis. -started on oral diltiazem as noted below for atrial fibrillation but getting mildly bradycardic with conversion back to sinus rhythm -diltiazem discontinued 3. Obesity as evidence by BMI of 29.1 acute on chronic, present on admission -consideration will be given to dietary counseling 4. Paroxysmal atrial fibrillation with rapid ventricular response, new diagno sis, RVR resolved and now in sinus rhythm. -TTE unremarkable, -started on apixban as noted above. -monitor heart rate on telemetry off of diltiazem 5. History of prior CVA, history of CAD -continue home medications. May need to revisit ASA given initiation of apixaban as noted above but there is some atherosclerotic disease on vessell imaging. -has 50% focal stenosis at origin left ICA and probable high-grade stenosis at left vertebral artery origin - started on high-dose statin therapy. -I would still favor to discontinue aspirin since starting on oral anticoagulation to avoid excessive risk of bleed
[2020-09-02] VITALS (13 sets, daily range): BP systolic 120–146; BP diastolic 63–80; PULSE 61–80; RESP 14–18; TEMP 35.7–36.4; O2SAT 92–98
[2020-09-02] MEDS: SODIUM CHLORIDE 0.9% FLUSH 10 ML IV ×2 (10:06→21:03)
[2020-09-02] MEDS: APIXABAN 5 MG TABLET PO ×2 (10:06→21:02)
[2020-09-02] MEDS: TIMOLOL 0.5% OPHTH 1 EACH EYE-BOTH (10:06)
--- NOTE | 2020-09-02 10:11 | ST.IPTN ---
Visit Care Team Role Provider Type Eduardo Cuellar DO Emergency Provider Physician Address: [address] [place] [address], [id number] [facility] Admit Provider Physician Attending Provider Address: [address] [place] [address], [id number] ANIMAL HUMANE AGENT SUPERVISOR Treatment Note ANIMAL HUMANE AGENT SUPERVISOR Clinical Instructor Line Start: 08/31/20 16:53 Freq: Status: Active Protocol: Document 08/31/20 17:17 ML (Rec: 08/31/20 17:17 ML [email or web address]) Clinical Instructor Signature Clinical Instructor Clinical Instructor Yes ANIMAL HUMANE AGENT SUPERVISOR Treatment Note Start: 09/01/20 12:24 Freq: Status: Active Protocol: Document 09/02/20 10:05 MG (Rec: 09/02/20 10:11 MG [email or web address]) Speech Pathology Treatment Note Session Time Visit Start Time 09:20 Visit Stop Time 09:45 Total Visit Minutes 25 Visit Information Visit Number 3 Setting Treatment Setting Acute Care Visit Type Note Type Treatment Note Next Note Type Next Note Type Treatment Note General Information General Information Patient is a 74-year-old male who presented today to the ED for a chief complaint of possible stroke/neuro deficit. 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 He states that approximately 10 days ago he felt a sensation the left side of his head that he described as ?popcorn popping ?shortly afterwards he started to have some slurring of his words which he states was new for him. He was also having some blurry vision. He is also having some weakness on his right side. Some of the symptoms have improved since the onset but none of them have completely resolved. He did have some deficits from his prior strokes but with time all those deficits have improved and he thinks what he is experiencing today are new . He has not tried anything for symptoms prior to arrival. He states the reason he came in today is because he talked with a friend who thought he should come in for evaluation. 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 Patient also has a history of heart attack, sleep apnea, and glaucoma. Patient reports he only takes aspirin daily. Upon admit to the floor patient complains of only continuing mild slurred speech and no other deficits at this time. Subjective Identification Type Name,ID Wristband Observations/Patient Presentation Per notes, OT re-administered the SLUMS assessment; the pt scored 28/30. Per nurse, pt's speech is getting better compared to yesterday. Pt was seen resting in bed reclined upon ANIMAL HUMANE AGENT SUPERVISOR entry. Pt was agreeable to working with the ANIMAL HUMANE AGENT SUPERVISOR this morning. Chief Complaint(s) Speech,Language Patient Knowledge/Awareness of ANIMAL HUMANE AGENT SUPERVISOR Role Good in Treatment Objective Short Term Goals 1. Pt will continue to follow safe swallow strategies to reduce risk penetration and aspiration. 2. Pt will participate in cognitive communication therapy for deficits in word finding and developing strategies he can implement independently. 3. Pt will work on oral motor exercises to increase strength and ROM of his lips Correctional Manager Goals Pt will demonstrate continual tolerance of least restrictive diet. Treatment Activities ANIMAL HUMANE AGENT SUPERVISOR and pt discussed and practiced word retrieval strategies and oral motor exercises to improve lip strength and excess drooling. Pt reported he looked over the word finding strategies after ANIMAL HUMANE AGENT SUPERVISOR left yesterday and used some during the rest of the day. Pt reported he wasn't using many as words were easier to find. Pt reported he did not practice his oral motor exercises as he did not see the paper as a reminder. ANIMAL HUMANE AGENT SUPERVISOR located exercise sheet and had pt practice in front of the ANIMAL HUMANE AGENT SUPERVISOR. Pt executed all exercises and reported that some were more difficult than others. When asked about breakfast, pt reported he had no concerns and tolerated breakfast well. Pt reported he is implementing safe swallow strategies when eating. Pt had no further questions prior to ANIMAL HUMANE AGENT SUPERVISOR leaving the room. Assessment Patient Response to Treatment Good Rehab Potential Good Impairments Identified Dysarthria,Memory - Short Term ,Speech Intelligibility Progress Towards Goals Good Progress Assessment of Overall Progress Improving Assessment of Improvement Pt reports he is getting better by the day and reports to be having improvements in his speech and swallowing. Pt tolerated breakfast with no overt s/sx of aspiration. Reviewed with Patient Goals,Progress Being Made,Home Exercise Program Patient/Caregiver Understanding Good Plan Comment daily during hospital stay Therapeutic Contents Cognitive-Linguistic Training, Intelligibility,Oral Motor Training Provided Patient/Caregiver Instruction Home Exercise Program,Plan of Care,Questions/Concerns Therapy Recommendations Continue with Current Program
--- NOTE | 2020-09-02 13:33 | OT.IPNOTE ---
Attempted to see pt for OT services. Pt seems upset stating that he received a phone call saying that insurance has declined his acute rehab stay and they are putting in an appeal. Pt states he does not want to shower if he is going home and wants to wait to see what happens. No OT services provided on this date.
--- NOTE | 2020-09-02 13:57 | CM.DPC ---
Addendum entered by Kavya Galloway LPN 09/02/20 14:31: Dr. Burns is updated, states he is appalled that the auth is denied and is very much in favor of the expedited appeal. He is placing documentation into EMR now in support of plan. Will fax to Bre as soon as received. Bre also has confirmed that she is able to continue to work on this appeal process throughout the holiday weekend and will have access to [facility] during that time. Addendum entered by Kavya Galloway LPN 09/02/20 14:10: Dr. Burns's progress note of last night: 2100 is faxed now to Bre/MADI. Original Note: DCP: continued: Hear back from Bre/MADI/[employer] [facility] that she had just been updated by [employer] and that the request for INPT rehab authorization had been denied. She noted that this was a surprise to their team as they thought pt was a good candidate and that pt has the right to request an expedited appear. She said she would call the patient and discuss. Have now spoken a couple of times with pt and with Bre. Pt and Bre had a phone conversation and pt confirmed he wished to proceed with the expedited appeal. Bre is processing this and will keep him and the DC[employer]anning team updated. Bre is requesting updated therapy notes for today to help with the appeal and also some documentation from the hospitalist team re need for INPT rehab. The most recent note from Dr. Burns of yesterday does not mention the preferred d/c dispo plan. Have spoken with PT Margarita and OT ALFONZO and they will see pt this afternoon and place notes as soon as possible.
--- NOTE | 2020-09-02 14:30 | P.PN_ITS ---
Subjective Subjective Date Patient Seen: 09/02/20 Interval history: This is a 74-year-old male with a past medical history of prior strokes and CAD who presented with new speech difficulties and vague right-sided complaints. He was found to have multiple acute infarcts on his MRI and after admission had an episode of atrial fibrillation with rapid ventricular response. He has been back and normal sinus rhythm. He was started on apixaban. Diltiazem was discontinued because his heart rate was staying 60 or less and he was getting dizzy. Patient is not dizzy today. He feels about the same with some word-finding difficulties, some memory impairment, mild weakness of bilateral upper and lower extremities, mild ataxia noted was noted while walking with PT. The medical team is desiring to get patient in to acute rehab as he has good motivation, able to participate in more intensive daily therapy, and has been able to make progress already during this hospital stay. He needs ongoing daily PT, OT and ST to have best chance of stroke recovery. Exam Vital Signs (past 8 hours): - 09/02/20 08:27 09/02/20 10:18 09/02/20 12:10 Temperature 97.0 F L 97.6 F Pulse Rate 61 66 Respiratory Rate 16 16 Blood Pressure 133/80 144/77 H Pulse Oximetry 95 97 95 09/02/20 13:59 Temperature Pulse Rate Respiratory Rate Blood Pressure Pulse Oximetry 97 Oxygen Delivery Method Room Air Oxygen Flow Rate 0 Narrative Exam Narrative: General: Pleasant alert and cooperative male Neurological: Affect normal, has moderate aphasia with word-finding difficulties and slow speech, upper extremity strength 4/5 bilaterally, finger to nose intact, lower extremity strength 4/5 bilaterally, had mild ataxia walking with PT Objective Labs Result Diagrams: 08/31/20 05:46 08/30/20 18:00 [facility] Medical History (Updated 08/31/20 @ 03:43 by DIANE Mosher) Glaucoma History of coma History of heart attack History of stroke History of stroke Sleep apnea Surgical History (Updated 08/31/20 @ 03:43 by DIANE Mosher) History of appendectomy History of mandibular surgery History of shoulder surgery Family History (Updated 08/31/20 @ 03:45 by DIANE Mosher) Father Pulmonary embolism Heart disease Mother No problems noted. Social History household members: none Smoking Status: Former smoker alcohol intake: current Assessment & Plan Assessment & Plan narrative: 1. 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 -MRI showed multifocal areas of acute ischemia most notably involving the right posterior temporal occipital lobe, in addition to bilateral cerebellar lesions and thalami. -echo showed normal LV, LVEF 60-65%, normal RV, mild TR -patient overnight developed an episode of AFib with RVR, given the areas of multiple infarcts this leads to a probable embolic source. -patient has been started on apixaban, continue aspirin 81 mg q.d. due to history of [place] although this would entail increase hemorrhagic risk -blood pressure elevated on admit and has drifted down and been mainly in normal range, not requiring antihypertensive -continue PT/OT/speech therapies, according to therapies he is good candidate for acute inpatient rehab 2. Paroxysmal atrial fibrillation with rapid ventricular response, new diagnosis, RVR resolved and now in sinus rhythm. -TTE unremarkable, -started on apixban 5 mg b.i.d. -diltiazem discontinued due to dizziness and bradycardia -telemetry currently showing sinus rhythm 3. Carotid and vertebral artery stenosis -patient also has history of CAD/IL -on MRA, patient has 50% focal stenosis at origin left ICA and probable high- grade stenosis at left vertebral artery origin -started on atorvastatin 80 mg Q HS 4. Orthostatic hypotension -patient became dizzy while working with therapy, noted to have orthostatic drops in blood pressure, was not taking much oral fluids yesterday -encourage p.o. fluid intake Patient is medically stable and awaiting insurance authorization for hopefully acute rehab.
--- NOTE | 2020-09-02 14:50 | OT.IP.TRT ---
Current Diagnoses Cerebral infarction, unspecified (08/31/20) Occupational Therapy Treatment Note M2 OT-IP Current Condition Start: 08/31/20 15:04 Freq: Status: Active Protocol: Document 08/31/20 15:05 CCC (Rec: 08/31/20 15:40 CCC [id number]) Occupational Therapy Current Condition Current Condition Evaluation Date 08/31/20 Treatment Diagnosis Acute CVA Diagnosis Onset Date 08/30/20 M3 OT- IP Subjective and Pain Start: 08/31/20 15:04 Freq: Status: Active Protocol: Document 09/02/20 15:00 CGR (Rec: 09/02/20 15:17 CGR [id number]) OT- Subjective Occupational Therapy Visit Type Type Progress Note Visit Start Time 13:55 Visit Stop Time 14:50 Total Visit Minutes 55 Notes Partial co-treat with P.T. OT Pain Assessment Pain When Pain Assessed During Mobility Pain Present Pain Present Denied Pain M4 OT- IP ADL's Start: 08/31/20 15:04 Freq: Status: Active Protocol: Document 09/02/20 15:00 CGR (Rec: 09/02/20 15:17 CGR [id number]) OT [id number] Comments OT Self-Feeding Comments Not meal time OT ADL-Grooming General Evaluation Grooming Ability Standby Assistance Areas Needing Assistance Combing/Brushing Hair Comments OT Grooming Comments standing at sink OT ADL-Oral Care Comments Oral Care Comments Performed this am OT ADL-Dressing General Eval Upper Body Dressing Ability Independent Lower Body Dressing Ability Moderate Assistance Areas Needing Assistance Socks Comments OT Dressing Comments IND for hospital gown and boxers with extra time and difficulty. Pt was able to don R sock with moderate difficulty and extra time but was unable to don L sock without total assist. OT ADL-Toileting Comments OT Toileting Comments not performed OT ADL-Bathing Bathing Type Bathing Type Shower General Evaluation Bathing Ability Standby Assistance Areas Needing Assistance Retrieving/Setting Up Items Devices Bathing Equipment Hand Held Shower Sprayer, Shower Chair with Arms,Grab Bars Comments OT Bathing Comments Pt performed shower initially standing in shower dispite encouragement to perform seated. Pt then stated that he felt unsteady and again encouraged to sit for shower. Pt performed the remainder of the shower seated. Pt did not use soap although provided with wash cloth with soap on it. M5 OT- IP IADL's Start: 08/31/20 15:04 Freq: Status: Active Protocol: Document 08/31/20 15:05 CCC (Rec: 08/31/20 15:40 CCC [id number]) OT-Instrumental Activities of Daily Living Home Safety Awareness Awareness of Need for Assistance at Home Decreased Awareness Ability to Problem Solve Emergency Able to Problem Solve Situations Medication Management Medication Management Comments Pt now having balance and cognitive deficits and would be best for pt to have asisst for all needs at this time. M6 OT- IP Functional Cognition Start: 08/31/20 15:04 Freq: Status: Active Protocol: Document 09/02/20 15:00 CGR (Rec: 09/02/20 15:17 CGR [id number]) Cognitive Factors Limiting Selfcare Function Cognitive Ability Level of Alertness Alert Patient Orientation Name,Age,Birthday,Month,Date, Year,Day of Week,Place, Situation Attention Span Ability Capable of Focused Attention, Capable of Sustained Attention Ability to Follow Commands Able to Follow One Step Commands with Increased Time, Able to Follow One Step Commands with Repetition Cognitive Comments Cognitive Assessment Comments Pt demonstrates poor safety awareness with mobility and ADLs. Pt choose to armature coil winder shower when feeling unstable and needed encouragemnet to sit on the seat provided. Pt then states feeling dizzy upon getting out of shower and declines to sit till he ambulated to the chair. Pt then c/o dizziness upon standing at sink but continues to complete brushing of hair rather than return to chair for safety. M7 OT- IP Mobility and Balance Start: 08/31/20 15:04 Freq: Status: Active Protocol: Document 09/02/20 15:00 CGR (Rec: 09/02/20 15:17 CGR [id number]) OT- Bed Mobility Assessment Supine to Sit Supine to Sit Assist Standby Assistance,Head of Bed Elevated,Bedrails Scooting Scooting to Edge of Bed Standby Assistance,Head of Bed Elevated,Bedrails OT-Transfer Assessment Sit to and From Stand Sit to and from Stand Contact Guard Assistance Transfers Transfer Ability Contact Guard Assistance Technique Transfer Destination Bed,Chair,Toilet Transfer Technique Stand Step Pivot Devices Transfer Assistive Devices Gait Belt,Front Wheeled Walker Comments Mobility Comments Pt needed max extra time for bed mobility. Pt states he has an adjustable bed at home and used the bed to assist with mobility. Pt ambulates with a fast phyllis given his bed mobility speed and the time needed for other tasks. OT- Balance Assessment Sitting Balance and Reactions Static Sitting Balance Ability Good Dynamic Sitting Balance Ability Fair M8 OT- IP Objective Assessments Start: 08/31/20 15:04 Freq: Status: Active Protocol: Document 09/01/20 12:20 CCC (Rec: 09/01/20 12:49 CCC [id number]) OT- Coordination Assessment Comments Coordination Comments Today pt able to touch his finger to nose with both right and left index finger with no problem and good accuracy. M9 OT- IP Assessment and Plan Start: 08/31/20 15:04 Freq: Status: Active Protocol: Document 09/02/20 15:00 CGR (Rec: 09/02/20 15:17 CGR [id number]) OT Summary Assessment and Plan Potential Rehabilitation Potential Excellent Analytic Complexity at Evaluation Moderate Summary OT Impairments Strength,Balance,Functional Cognition,Functional Mobility, Self-Feeding,Grooming,Dressing ,Toileting,Bathing,Toilet Transfers,Shower Transfers, Activity Tolerance Progress Towards Goals Progressing Toward Goals Assessment Summary Pt displays poor safety during todays session specific to his feeling of dizziness and need to sit. Pt was able to participate in shower after initially stating that he would prefer to perform at home if he was going to go home. Pt had difficulty with LB dress and needed assist with donning socks. Pt will continue to benefit from therapy servies. Pt with declining BP with upright posture, 137/70 HR 70 sitting, 124/68 HR 83 standing, 111/68 HR 82 standing 2 minutes later. Pt indicates dizziness and black spots and was keeping eyes closed at end of standing for BPs. Notified MD and nursing. MD requested pt be given a glass of water and encouraged to drink, which this pattern chart writer did. P.T. plans to return for more mobility after pt has consumed water. Given that pt lives alone, pt would benefit from acute rehab to address deficits and provide him the best option at returning to living alone. Goals Self-Feeding Goal Independent Grooming Goal Independent Dressing Goal Independent Toileting Goal Independent Bathing Goal Independent Shower Transfer Goal Independent Days to Meet Goals 20 Frequency of Treatment Frequency Of Treatment Once a Day Treatment Plan OT Treatment Plan ADL Training,Functional Cognition Training,Functional Mobility,Therapeutic Exercises ,Vision Retraining,Patient/ Family Education,Discharge Planning Other Treatment Recommendations and Next Pt to perform LB dressing with Treatment Focus IND. Discharge Recommendations OT Discharge Recommendations Acute Rehab Transportation Needs at Discharge Private Vehicle,Wheelchair/ Cabulance
--- NOTE | 2020-09-02 15:51 | PT.IPTN ---
Current Diagnoses Cerebral infarction, unspecified (08/31/20) Physical Therapy Treatment Note M2 PT-IP Current Condition Start: 08/31/20 08:41 Freq: NEEDED Status: Active Protocol: Document 08/31/20 14:27 HH (Rec: 08/31/20 15:37 HH [id number]) Physical Therapy Current Condition Current Condition Evaluation Date 08/31/20 Treatment Diagnosis Possible stroke, decreased balance, difficulty in walking Onset Date 10 days ago Weight Bearing Status Weight Bearing Status Weight Bear as Tolerated M3 PT-IP Subjective Start: 08/31/20 08:41 Freq: NEEDED Status: Active Protocol: Document 09/02/20 14:39 CLB (Rec: 09/02/20 16:25 CLB [id number]) Subjective Physical Therapy Visit Type Type Treatment Note Visit Start Time 14:39 Visit Stop Time 15:51 Total Visit Minutes 25 Notes Split treatment [id number] Number of INTERN RETAIL Visits 2 Physical Therapy Visit Comments Patient Comments Pt willing to work with therapy. Therapy Pain Assessment Pain Present Pain Present Denied Pain M4 PT-IP Mobility and Gait Start: 08/31/20 08:41 Freq: NEEDED Status: Active Protocol: Document 09/02/20 14:39 CLB (Rec: 09/02/20 16:25 CLB [id number]) PT-Transfer Assessment Sit to and From Stand Sit to and from Stand Contact Guard Assistance,1 Person Assistance,Use of Upper Extremities Equipment Transfer Assistive Device Gait Belt,Front Wheeled Walker Orthotic/Prosthetic Devices or Brace: No Transfers Transfer Destination Chair Transfer Technique Stand Step Pivot Comments Mobility Comments Pt in chair after shower with OT. Pt stood to walk to mirror to comb hair and stated he felt dizzy. Pt then returned to chair sitting BP 137/67, HR 70. BP in standing 124/68, HR 83 BP taken in standing a second time 111/68, HR 82. Pt left in chair and RN and doctor informed of BP. Returned to room to ambulate with pt. BP in sitting 129/74, BP in standing 139/84 w/o dizziness pt ambulated in room ~75ft with FWW/CGA and cues to watch obstacles. Pt fatigued and requested returning to chair. Pt left in chair with all needs within reach and alarm on. Informed RN of pt BP readings. Gait Assessment Gait Gait Assistance Required: Minimum Assistance Distance (Feet) 75 Able to Maintain Weight Bearing Status Yes During Gait Assistive Devices Assistive Device Gait Belt,Front Wheeled Walker Orthotic/Prosthetic Devices or Brace: No Gait Deviations General Gait Pattern Ataxic,Decreased Stride Length ,Decreased Feet Clearance, Flexed Trunk,Narrow Based Gait Factors Limiting Gait Function Factors Limiting Gait Function Decreased Activity Tolerance, Decreased Strength,Poor Balance,Poor Safety Awareness Comments Gait Comments Poor safety awareness with verbal cues to prevent hitting obstacles on right side. M5 PT-IP Objective Assessments Start: 08/31/20 08:41 Freq: NEEDED Status: Active Protocol: Document 08/31/20 14:27 HH (Rec: 08/31/20 15:37 HH [id number]) Orientation Orientation/Cognition Level of Alertness Alert Orientation Name,Age,Birthday,Month,Date, Year,Day of Week,Place, Situation Language Function Ability Word Finding Difficulties Safety Awareness Decreased Safety Awareness Memory Description Short Term Impaired Comments SLUMs test from OT assessment Gross Range of Motion Upper Extremity ROM Assessment Right Impaired Impairments unable to reach overhead on RUE Lower Extremity ROM Assessment Bilaterally Impaired Impairments R>L weakness Strength Upper Extremity Strength Assessment Right Impaired Shoulder 3-/5 Elbow 5/5 Wrist 4/5 Hand 4/5 Lower Extremity Strength Assessment Bilaterally Impaired Hip 4-/5 Knee 4-/5 Ankle 4-/5 Comments Strength Comments noticed hand vascular ultrasound technologist is significantly less on R hand pt stated residual weakness on L from his previous stroke. Coordination Assessment Gross Coordination Gross Coordination Impaired Assessment Finger to Nose Test Minimal Impairment Pronation/Supination Test Minimal Impairment Foot Tapping Test Minimal Impairment Heel on [place] Test Minimal Impairment Coordination Comments overall slower Sensation Assessment Sensation Gross Sensation WNL Light Touch Intact Proprioception (Position) Intact Muscle Tone Muscle Tone WNL Yes Other Assessments Other Other Assessments pursuit and saccade = both produces symptoms of dizziness for both horizontal and vertical direction VOR1 = dizziness noted. nystagmus noted. decreased L peripheral vision field noted. M6 PT-IP Treatment Start: 08/31/20 08:41 Freq: NEEDED Status: Active Protocol: Document 09/01/20 09:42 CLB (Rec: 09/01/20 12:02 CLB [id number]) Physical Therapy Treatment Exercises Exercises Straight Leg Raises,Seated Knee Flexion/Extension Other Treatments Other Treatment Performed Standing marches and Balance: NBOS, tandem EO/EC M7 PT-IP Assessment and Plan Start: 08/31/20 08:41 Freq: NEEDED Status: Active Protocol: Document 09/02/20 14:39 CLB (Rec: 09/02/20 16:25 CLB [id number]) PT Summary Assessment and Plan Potential Rehabilitation Potential Good Status of Condition at Evaluation Evolving Summary Impairments ROM,Strength,Balance, Coordination,Sensation, Cognition,Bed Mobility, Transfers,Gait,Activity Tolerance Assessment Summary Pt with dizziness and low BP. After pt rested pt with BP WNL and able to ambulate w/o dizziness. Pt fatigued after ~ 75ft as pt had recently had shower with OT. Pt has poor safety awareness requiring verbal cues to prevent hitting obstacles on right side. PT and would benefit from Acute care rehab to improve strength for functional independent mobility. Goals Bed Mobility Goal Independent Transfer Goal Independent,Cane,Front Wheeled Walker Gait Goal Independent,Cane,Front Wheel Walker Gait Distance 500 Days to Meet Goals 5 Frequency of Treatment Frequency Of Treatment Once a Day Treatment Plan Physical Therapy Treatment Plan Bed Mobility Training,Transfer Training,Gait Training, Therapeutic Exercise,Balance Retraining,Discharge Planning, Hot or Cold Pack,Neuromuscular Re-ed,Coordination Retraining Recommendations To Nursing Amount of Assist Needed 1 Person Assist Discharge Recommendations PT Discharge Recommendations Acute Rehab Equipment Needed for Home Before if go home, FWW if pt doesnt Discharge progress Transportation Needs at Discharge Private Vehicle
[2020-09-02] MEDS: LATANOPROST 0.005% EYE DROPS 1 EACH EYE-BOTH (21:02)
[2020-09-02] MEDS: SENNOSIDES 8.6 MG TABLET 17.2 MG PO (21:02)
[2020-09-02] MEDS: ATORVASTATIN 20 MG TABLET 80 MG PO (21:02)
--- NOTE | 2020-09-02 22:34 | PC.NURSE ---
NIH 3 for dysphagia and slurred dysarthria; Tele SR BBB; swallows pills whole with thin liquid; sba to bathroom with fww; SCDs and bed alarm active
[2020-09-03] VITALS (11 sets, daily range): BP systolic 132–150; BP diastolic 58–74; PULSE 57–65; RESP 16–17; TEMP 36.2–36.7; O2SAT 92–99
[2020-09-03] MEDS: TIMOLOL 0.5% OPHTH 1 EACH EYE-BOTH (08:46)
[2020-09-03] MEDS: SODIUM CHLORIDE 0.9% FLUSH 10 ML IV ×2 (08:46→22:34)
[2020-09-03] MEDS: APIXABAN 5 MG TABLET PO ×2 (08:46→22:34)
--- NOTE | 2020-09-03 11:14 | PT.IPTN ---
Current Diagnoses Cerebral infarction, unspecified (08/31/20) Physical Therapy Treatment Note M2 PT-IP Current Condition Start: 08/31/20 08:41 Freq: NEEDED Status: Active Protocol: Document 08/31/20 14:27 HH (Rec: 08/31/20 15:37 HH [id number]) Physical Therapy Current Condition Current Condition Evaluation Date 08/31/20 Treatment Diagnosis Possible stroke, decreased balance, difficulty in walking Onset Date 10 days ago Weight Bearing Status Weight Bearing Status Weight Bear as Tolerated M3 PT-IP Subjective Start: 08/31/20 08:41 Freq: NEEDED Status: Active Protocol: Document 09/03/20 11:16 CLB (Rec: 09/03/20 13:45 CLB [id number]) Subjective Physical Therapy Visit Type Type Treatment Note Visit Start Time 11:16 Visit Stop Time 11:41 Total Visit Minutes 25 Number of TRANSPORTATION LEAD Visits 3 Physical Therapy Visit Comments Patient Comments Pt willing to work with therapy. Therapy Pain Assessment Pain Present Pain Present Denied Pain M4 PT-IP Mobility and Gait Start: 08/31/20 08:41 Freq: NEEDED Status: Active Protocol: Document 09/03/20 11:16 CLB (Rec: 09/03/20 13:45 CLB [id number]) PT-Bed Mobility Assessment Supine to Sit Supine to Sit Standby Assistance,1 Person Assistance,Bedrails Sit to Supine Sit to Supine Standby Assistance,1 Person Assistance,Head of Bed Elevated Scooting Scooting to Edge of Bed Standby Assistance Scooting Up and Down in Bed Standby Assistance PT-Transfer Assessment Sit to and From Stand Sit to and from Stand Contact Guard Assistance,1 Person Assistance,Use of Upper Extremities Equipment Transfer Assistive Device Gait Belt,Front Wheeled Walker Orthotic/Prosthetic Devices or Brace: No Transfers Transfer Destination Bed Transfer Technique Stand Step Pivot Transfer Ability Level of Assist Contact Guard Assistance,1 Person Assistance Comments Mobility Comments Pt in bed able to get to EOB SBA with increased time for motor planning. Pt ambulated Min A with SPC ~220ft with cues for cane/step sequencing. Pt c/o blurry vision and orange glasses were worn for and additional 80ft with no c/ o blurred vision. Pt has two pair of glasses, brown for reading and orange for distance. Pt sat on EOB doing seated marches and knee flx/ ext. Pt stood from bed to perform standing balance. Pt then returned to supine SBA. Pt left in bed with all needs within reach and bed alarm on. Gait Assessment Gait Gait Assistance Required: Minimum Assistance Distance (Feet) 220 Able to Maintain Weight Bearing Status Yes During Gait Assistive Devices Assistive Device Gait Belt,Front Wheeled Walker Orthotic/Prosthetic Devices or Brace: No Gait Deviations General Gait Pattern Ataxic,Decreased Stride Length ,Decreased Feet Clearance, Flexed Trunk,Narrow Based Gait Factors Limiting Gait Function Factors Limiting Gait Function Decreased Activity Tolerance, Decreased Strength,Poor Balance,Poor Safety Awareness Comments Gait Comments Pt requires Min A w/SPC and requires cues for slowing pace . At this time pt is safer with FWW. M5 PT-IP Objective Assessments Start: 08/31/20 08:41 Freq: NEEDED Status: Active Protocol: Document 08/31/20 14:27 HH (Rec: 08/31/20 15:37 HH [id number]) Orientation Orientation/Cognition Level of Alertness Alert Orientation Name,Age,Birthday,Month,Date, Year,Day of Week,Place, Situation Language Function Ability Word Finding Difficulties Safety Awareness Decreased Safety Awareness Memory Description Short Term Impaired Comments SLUMs test from OT assessment Gross Range of Motion Upper Extremity ROM Assessment Right Impaired Impairments unable to reach overhead on RUE Lower Extremity ROM Assessment Bilaterally Impaired Impairments R>L weakness Strength Upper Extremity Strength Assessment Right Impaired Shoulder 3-/5 Elbow 5/5 Wrist 4/5 Hand 4/5 Lower Extremity Strength Assessment Bilaterally Impaired Hip 4-/5 Knee 4-/5 Ankle 4-/5 Comments Strength Comments noticed hand rivet flunky is significantly less on R hand pt stated residual weakness on L from his previous stroke. Coordination Assessment Gross Coordination Gross Coordination Impaired Assessment Finger to Nose Test Minimal Impairment Pronation/Supination Test Minimal Impairment Foot Tapping Test Minimal Impairment Heel on [place] Test Minimal Impairment Coordination Comments overall slower Sensation Assessment Sensation Gross Sensation WNL Light Touch Intact Proprioception (Position) Intact Muscle Tone Muscle Tone WNL Yes Other Assessments Other Other Assessments pursuit and saccade = both produces symptoms of dizziness for both horizontal and vertical direction VOR1 = dizziness noted. nystagmus noted. decreased L peripheral vision field noted. M6 PT-IP Treatment Start: 08/31/20 08:41 Freq: NEEDED Status: Active Protocol: Document 09/03/20 11:16 CLB (Rec: 07/03/21 13:45 CLB [id number]) Physical Therapy Treatment Exercises Exercises Seated Knee Flexion/Extension Education Education Provided Safety Other Treatments Other Treatment Performed Standing marches and Balance: NBOS, tandem EO/EC seated marches M7 PT-IP Assessment and Plan Start: 08/31/20 08:41 Freq: NEEDED Status: Active Protocol: Document 09/03/20 11:16 CLB (Rec: 09/03/20 13:45 CLB [id number]) PT Summary Assessment and Plan Potential Rehabilitation Potential Good Status of Condition at Evaluation Evolving Summary Impairments ROM,Strength,Balance, Coordination,Sensation, Cognition,Bed Mobility, Transfers,Gait,Activity Tolerance Assessment Summary Pt trialed SPC during ambulation and pt is safest with FWW at this time. Pt had no c/o dizziness and with distance glasses pt had no c/o blurred vision. Goals Bed Mobility Goal Independent Transfer Goal Independent,Cane,Front Wheeled Walker Gait Goal Independent,Cane,Front Wheel Walker Gait Distance 500 Days to Meet Goals 5 Frequency of Treatment Frequency Of Treatment Once a Day Treatment Plan Physical Therapy Treatment Plan Bed Mobility Training,Transfer Training,Gait Training, Therapeutic Exercise,Balance Retraining,Discharge Planning, Hot or Cold Pack,Neuromuscular Re-ed,Coordination Retraining Recommendations To Nursing Amount of Assist Needed 1 Person Assist Discharge Recommendations PT Discharge Recommendations Acute Rehab Equipment Needed for Home Before if go home, FWW if pt doesnt Discharge progress Transportation Needs at Discharge Private Vehicle
--- NOTE | 2020-09-03 11:47 | CM.DPC ---
Addendum entered by Jolanta Perez R.N. 09/03/20 15:32: Spoke to Franck at [facility], and she mentioned that she will review patient today. Left a message with Estefania, in admissions at [facility] as well, since referral was also sent to her. Kelly at [facility] is also reviewing, but no beds until Saturday or Sat. Will contact Bre again tomorrow, at [facility] rehab, as well. Original Note: DCP Cont: Discussed patient during team rounds, and patient is deemed medically stable. The goal has been to attempt getting patient into [facility]. [employer] denied, and patient had wanted to appeal. Bre at [facility] has been working on appeal. Contacted Bre today. She stated, she needs updated progress notes from yesterday, and therapy notes. Faxed them to her. She indicated, she thought that hospitalist was going to write a note as to why patient would benefit with acute patient rehab. Sent her yesterdays note, including recommendation. Bre stated, she does not know when she could hear back regarding the appeal, could take another couple of days. Spoke to patient, he is aware of denial, and is willing to go to a skilled rehab. Went ahead and called [facility], spoke to Franck in admissions. She indicated, they should have some beds, and can attempt to get authorization. Contacted Savannah at [facility], and stated, they could have beds, and to send referral. Sent referrals, including face sheet, H&P, and all therapy notes. Also, asked Kelly in admissions at [facility] to review patient, but she does not anticipate bed availability until or Sat. P: DCP to continue to work on placement. Will follow up again with Bre at [facility], as well as Franck at [facility] and Estefania at [facility], as they have received referrals, and have not yet reviewed. Jolanta Perez RN/Tectonophysicist
--- NOTE | 2020-09-03 12:10 | ST.IPTN ---
Visit Care Team Role Provider Type Eduardo Cuellar DO Emergency Provider Physician Address: [address] [place] [address], [id number] [facility] Provider Physician Attending Provider Address: [address] [place] [address], [id number] BOAT CLEANING SUPERVISOR Treatment Note BOAT CLEANING SUPERVISOR Clinical Instructor Line Start: 08/31/20 16:53 Freq: Status: Active Protocol: Document 08/31/20 17:17 ML (Rec: 08/31/20 17:17 ML [id number]) Clinical Instructor Signature Clinical Instructor Clinical Instructor Yes BOAT CLEANING SUPERVISOR Treatment Note Start: 09/01/20 12:24 Freq: Status: Active Protocol: Document 09/03/20 12:05 MG (Rec: 09/03/20 12:10 MG [id number]) Speech Pathology Treatment Note Session Time Visit Start Time 09:20 Visit Stop Time 09:50 Total Visit Minutes 30 Visit Information Visit Number 4 Setting Treatment Setting Acute Care Visit Type Note Type Treatment Note Next Note Type Next Note Type Treatment Note General Information General Information Patient is a 74-year-old male who presented today to the ED for a chief complaint of possible stroke/neuro deficit. 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 He states that approximately 10 days ago he felt a sensation the left side of his head that he described as ?popcorn popping ?shortly afterwards he started to have some slurring of his words which he states was new for him. He was also having some blurry vision. He is also having some weakness on his right side. Some of the symptoms have improved since the onset but none of them have completely resolved. He did have some deficits from his prior strokes but with time all those deficits have improved and he thinks what he is experiencing today are new . He has not tried anything for symptoms prior to arrival. He states the reason he came in today is because he talked with a friend who thought he should come in for evaluation. 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 Patient also has a history of heart attack, sleep apnea, and glaucoma. Patient reports he only takes aspirin daily. Upon admit to the floor patient complains of only continuing mild slurred speech and no other deficits at this time. Subjective Identification Type Name,ID Wristband Observations/Patient Presentation Pt willing to work with therapy this morning. Was observed to be reclined in bed watching TV. Pt reported he is following through on his lip exercises and is taking his time speaking, which is helping with his word finding difficulties. Chief Complaint(s) Speech,Language Patient Knowledge/Awareness of BOAT CLEANING SUPERVISOR Role Good in Treatment Objective Short Term Goals 1. Pt will continue to follow safe swallow strategies to reduce risk penetration and aspiration. 2. Pt will participate in cognitive communication therapy for deficits in word finding and developing strategies he can implement independently. 3. Pt will work on oral motor exercises to increase strength and ROM of his lips and tongue. Prison Goals Pt will demonstrate continual tolerance of least restrictive diet. Treatment Activities BOAT CLEANING SUPERVISOR and pt discussed and practiced word retrieval strategies and oral motor exercises to improve lip strength and excess drooling. Pt reported that he felt his tongue was weaker and this was impacting his intelligibility when speaking with others. OME was conducted and tongue weakness was noted. BOAT CLEANING SUPERVISOR and pt went over tongue exercises that he can do to increase his strength as well as communication breakdown strategies (e.g., annunciating words). Pt executed all exercises appropriately and reported that some were more difficult than others. When asked about breakfast, pt reported he had no concerns and tolerated breakfast well. Pt reported he is implementing safe swallow strategies when eating. Pt had no further questions prior to BOAT CLEANING SUPERVISOR leaving the room. Assessment Patient Response to Treatment Good Rehab Potential Good Impairments Identified Dysarthria,Memory - Short Term ,Speech Intelligibility Progress Towards Goals Good Progress Assessment of Overall Progress Improving Assessment of Improvement Pt reports he is getting better by the day and reports to be having improvements in his speech and swallowing. Pt tolerated breakfast with no overt s/sx of aspiration. Pt is following through on exercise program to regain strength in his oral cavity. Reviewed with Patient Goals,Progress Being Made,Home Exercise Program Patient/Caregiver Understanding Good Plan Comment daily during hospital stay Therapeutic Contents Cognitive-Linguistic Training, Intelligibility,Oral Motor Training Provided Patient/Caregiver Instruction Home Exercise Program,Plan of Care,Questions/Concerns Therapy Recommendations Continue with Current Program
--- NOTE | 2020-09-03 14:58 | OT.IP.TRT ---
Current Diagnoses Cerebral infarction, unspecified (08/31/20) Occupational Therapy Treatment Note M2 OT-IP Current Condition Start: 08/31/20 15:04 Freq: Status: Active Protocol: Document 08/31/20 15:05 [facility] (Rec: 08/31/20 15:40 [facility] [id number]) Occupational Therapy Current Condition Current Condition Evaluation Date 08/31/20 Treatment Diagnosis Acute CVA Diagnosis Onset Date 08/30/20 M3 OT- IP Subjective and Pain Start: 08/31/20 15:04 Freq: Status: Active Protocol: Document 09/03/20 15:03 [facility] (Rec: 09/03/20 15:20 [facility]GR [id number]) OT- Subjective Occupational Therapy Visit Type Type Progress Note Visit Start Time 14:34 Visit Stop Time 14:58 Total Visit Minutes 24 Notes Nursing present when pt reported double vision. OT Pain Assessment Pain When Pain Assessed At Rest Pain Present Pain Present Denied Pain M4 OT- IP ADL's Start: 08/31/20 15:04 Freq: Status: Active Protocol: Document 09/03/20 15:03 [facility] (Rec: 09/03/20 15:20 [facility] [id number]) OT [id number] Comments OT Self-Feeding Comments not meal time OT ADL-Grooming General Evaluation Grooming Ability Standby Assistance Areas Needing Assistance Retrieving/Set-up of Grooming Items,Combing/Brushing Hair, Face Washing Comments OT Grooming Comments Standing at sink. Of note, pt dripping significant water on the floor without notice. OT ADL-Oral Care General Eval Oral Care Ability Standby Assistance Areas of Assistance Brushing Teeth,Retrieving/Set- Up of Items Comments Oral Care Comments Pt brushed teeth standing at sink OT ADL-Dressing Comments OT Dressing Comments not performed OT ADL-Toileting Comments OT Toileting Comments Pt states he just got back from bathroom ~20 minutes beofre OT entered. OT ADL-Bathing Comments OT Bathing Comments Not performed M5 OT- IP IADL's Start: 08/31/20 15:04 Freq: Status: Active Protocol: Document 08/31/20 15:05 [facility] (Rec: 08/31/20 15:40 [facility] [id number]) OT-Instrumental Activities of Daily Living Home Safety Awareness Awareness of Need for Assistance at Home Decreased Awareness Ability to Problem Solve Emergency Able to Problem Solve Situations Medication Management Medication Management Comments Pt now having balance and cognitive deficits and would be best for pt to have asisst for all needs at this time. M6 OT- IP Functional Cognition Start: 08/31/20 15:04 Freq: Status: Active Protocol: Document 09/02/20 15:00 [facility] (Rec: 09/02/20 15:17 [facility] [id number]) Cognitive Factors Limiting Selfcare Function Cognitive Ability Level of Alertness Alert Patient Orientation Name,Age,Birthday,Month,Date, Year,Day of Week,Place, Situation Attention Span Ability Capable of Focused Attention, Capable of Sustained Attention Ability to Follow Commands Able to Follow One Step Commands with Increased Time, Able to Follow One Step Commands with Repetition Cognitive Comments Cognitive Assessment Comments Pt demonstrates poor safety awareness with mobility and ADLs. Pt choose to positive printer operator shower when feeling unstable and needed encouragemnet to sit on the seat provided. Pt then states feeling dizzy upon getting out of shower and declines to sit till he ambulated to the chair. Pt then c/o dizziness upon standing at sink but continues to complete brushing of hair rather than return to chair for safety. M7 OT- IP Mobility and Balance Start: 08/31/20 15:04 Freq: Status: Active Protocol: Document 09/03/20 15:03 [facility] (Rec: 09/03/20 15:20 [facility] [id number]) OT- Bed Mobility Assessment Rolling Type of Rolling Roll to Right Level of Assistance Standby Assistance,Head of Bed Elevated,Bedrails Supine to Sit Supine to Sit Assist Standby Assistance,Head of Bed Elevated,Bedrails OT-Transfer Assessment Sit to and From Stand Sit to and from Stand Contact Guard Assistance Transfers Transfer Ability Contact Guard Assistance Technique Transfer Destination Bed Transfer Technique Stand Step Pivot Devices Transfer Assistive Devices Gait Belt,Front Wheeled Walker Comments Mobility Comments mobility from the bed to the sink and return. Slight LOB upon return with the use of the walker. OT- Balance Assessment Sitting Balance and Reactions Static Sitting Balance Ability Good M8 OT- IP Objective Assessments Start: 08/31/20 15:04 Freq: Status: Active Protocol: Document 09/01/20 12:20 CCC (Rec: 09/01/20 12:49 CCC [id number]) OT- Coordination Assessment Comments Coordination Comments Today pt able to touch his finger to nose with both right and left index finger with no problem and good accuracy. M9 OT- IP Assessment and Plan Start: 08/31/20 15:04 Freq: Status: Active Protocol: Document 09/03/20 15:03 [facility]GR (Rec: 09/03/20 15:20 CGR [id number]) OT Summary Assessment and Plan Potential Rehabilitation Potential Excellent Analytic Complexity at Evaluation Moderate Summary OT Impairments Strength,Balance,Functional Cognition,Functional Mobility, Self-Feeding,Grooming,Dressing ,Toileting,Bathing,Toilet Transfers,Shower Transfers, Activity Tolerance Progress Towards Goals Progressing Toward Goals Assessment Summary Pt appears more confused in todays session. Pt reports double vision upon OT entering , nursing notified and assessment performed without further findings. Pt then asks for glasses and states that the double vision is gone. Pt told this property underwriter yesterday that his glasses were reading glasses but today states that one pair are readers and the other is for vision. Pt then ambulates to sink and washed glasses, face and brushed teeth with SBA but poor safety awareness with regards to water on the floor. Pt returned to bed at end of session without continued visual complaint. Pt will continue to benefit from therapy services and rehab upon discharge. Goals Self-Feeding Goal Independent Grooming Goal Independent Dressing Goal Independent Toileting Goal Independent Bathing Goal Independent Shower Transfer Goal Independent Days to Meet Goals 20 Frequency of Treatment Frequency Of Treatment Once a Day Treatment Plan OT Treatment Plan ADL Training,Functional Cognition Training,Functional Mobility,Therapeutic Exercises ,Vision Retraining,Patient/ Family Education,Discharge Planning Other Treatment Recommendations and Next Increased endurance to perform Treatment Focus ADLs Discharge Recommendations OT Discharge Recommendations Acute Rehab Transportation Needs at Discharge Private Vehicle,Wheelchair/ Cabulance
--- NOTE | 2020-09-03 14:59 | PC.NURSE ---
AM shift note. pt AO and receptive to care. Denying pain, delayed speech but appropriate answers. Up 1PA FWW to BR. BM this afternoon. Tele: sinus anne. PIV saline locked and flushing. NIH 2 this shift. Speech team saw pt this AM and reporting improvements. PT worked with pt without any communicated concerns. OT saw pt toward end of shift, during which pt reporting double vision. OT then alerted me and I performed a quick stroke assessment. Denying pain, BP 134/57, HR 61. Smile and face symmetrical, equal strength in all extremities. I asked pt to then put glasses on to which he replied that his double vision was improving.
--- NOTE | 2020-09-03 15:03 | PC.NURSE ---
DOUBLE VISION EPISODE. At approximately 1440 pt reporting double vision to OT. OT then alerted me and I performed a quick stroke assessment. Denying pain, BP 134/57, HR 61. Smile and face symmetrical, equal strength in all extremities. pt able to repeat words appropriately. I asked pt to then put glasses on to which he replied that his double vision was improving.
--- NOTE | 2020-09-03 16:46 | P.PN_ITS ---
Subjective Subjective Date Patient Seen: 09/03/20 Interval history: This is a 74-year-old male with a past medical history of prior strokes and CAD who presented with new speech difficulties and vague right-sided complaints. He was found to have multiple acute infarcts on his MRI and after admission had an episode of atrial fibrillation with rapid ventricular response. He has been back and normal sinus rhythm. He was started on apixaban. Diltiazem was discontinued because his heart rate was staying 60 or less and he was getting dizzy. Patient reports new symptom of double vision today. Denies headache or other new symptoms. Continues to have aphasia with word-finding difficulties, some memory impairment, ataxia and poor sensory awareness as noted with PT. Exam Vital Signs (past 8 hours): - 09/03/20 08:48 09/03/20 12:30 09/03/20 14:32 Temperature 98.1 F 97.6 F Pulse Rate 65 65 Respiratory Rate 16 17 Blood Pressure 150/65 H 132/58 L Pulse Oximetry 95 95 95 09/03/20 16:15 Temperature 97.7 F Pulse Rate 61 Respiratory Rate 16 Blood Pressure 137/67 Pulse Oximetry 92 Oxygen Delivery Method Room Air Oxygen Flow Rate 0 Narrative Exam Narrative: General: Alert and pleasant cooperative male in no acute distress Neurological: Affect normal, Pupils equal, EOMI, seeing double mostly when looking straight ahead, moderate word-finding difficulty Objective Labs Result Diagrams: 08/31/20 05:46 08/30/20 18:00 [facility] Medical History (Updated 08/31/20 @ 03:43 by VICKI Mosher-SABAS) Glaucoma History of coma History of heart attack History of stroke History of stroke Sleep apnea Surgical History (Updated 08/31/20 @ 03:43 by VICKI Mosher-SABAS) History of appendectomy History of mandibular surgery History of shoulder surgery Family History (Updated 08/31/20 @ 03:45 by VICKI Mosher-SABAS) Father Pulmonary embolism Heart disease Mother No problems noted. Social History household members: none Smoking Status: Former smoker alcohol intake: current Assessment & Plan Assessment & Plan narrative: 1. 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 -MRI showed multifocal areas of acute ischemia most notably involving the right posterior temporal occipital lobe, in addition to bilateral cerebellar lesions and thalami. -echo showed normal LV, LVEF 60-65%, normal RV, mild TR -patient developed an episode of AFib with RVR, given the areas of multiple infarcts this leads to a probable embolic source. -patient has been started on apixaban, continue aspirin 81 mg q.d. due to history of MS although this would entail increase hemorrhagic risk -blood pressure elevated on admit and has drifted down and been mainly in normal range, not requiring antihypertensive -continue PT/OT/speech therapies, according to therapies he is good candidate for acute inpatient rehab -new symptom of diplopia noted on September 03 2. Paroxysmal atrial fibrillation with rapid ventricular response, new diagnosis, RVR resolved and now in sinus rhythm. -TTE unremarkable, -started on apixban 5 mg b.i.d. -diltiazem discontinued due to dizziness and bradycardia -telemetry currently showing sinus rhythm 3. Carotid and vertebral artery stenosis -patient also has history of CAD/MS -on MRA, patient has 50% focal stenosis at origin left ICA and probable high- grade stenosis at left vertebral artery origin -started on atorvastatin 80 mg Q HS -continue aspirin 81 mg q.d. 4. Orthostatic hypotension, resolved -patient became dizzy while working with therapy, noted to have orthostatic drops in blood pressure, was not taking much oral fluids -encourage p.o. fluid intake Patient is medically stable for discharge. Disposition: Acute rehab versus SNF
--- NOTE | 2020-09-03 19:00 | PC.NURSE ---
1600- pt watchng soccor on TV, A/O x4, Tele NSR , denies SOB 92% RA, nausea, and pain. NIH score-2, pt reports when he says fifty-fifty it sounds slurry, and different. speech slightly slurred during stating fifty-fifty, and selam portion of huckleberry. Pt also reports blurred vision to the lower left visual field, but only slight. Pt then put on Rx glasss and visual field improved a little, provider aware. Pt reports uses cane since last stroke. remains on dysphagia diet with thin liquids and may use straw if desires. LFA SL. Urinal at bedside, call light in reach, bed alarm activated.
[2020-09-03] MEDS: ATORVASTATIN 20 MG TABLET 80 MG PO (22:34)
[2020-09-03] MEDS: LATANOPROST 0.005% EYE DROPS 1 EACH EYE-BOTH (22:35)
[2020-09-04] VITALS (10 sets, daily range): BP systolic 120–145; BP diastolic 58–81; PULSE 61–66; RESP 14–18; TEMP 36.1–36.8; O2SAT 93–98
--- NOTE | 2020-09-04 07:19 | P.PN_ITS ---
Subjective Subjective Date Patient Seen: 09/04/20 Interval history: He is seen today to follow-up his CVA. On exam he has right- sided tongue deviation along with symmetric and diffuse 3/5 bilateral lower and upper extremity weakness. He complains of fuzzy vision but does not demonstrate diplopia. 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 Exam Vital Signs (past 8 hours): - 09/03/20 23:53 09/04/20 00:00 09/04/20 04:00 Temperature 97.1 F L Pulse Rate 57 L Respiratory Rate 16 Blood Pressure 132/65 Pulse Oximetry 98 98 96 09/04/20 05:53 Temperature 97.0 F L Pulse Rate 66 Respiratory Rate 16 Blood Pressure 123/67 Pulse Oximetry 96 Oxygen Delivery Method Room Air Oxygen Flow Rate 0 Narrative Exam Narrative: He is alert and oriented x3. He appears to be moving slowly, talking slowly but is very accurate and informative during discussions. No apparent distress Heart is regular rate and rhythm without murmur Lungs are clear to auscultation bilaterally No ankle edema Neurological exam there is no tremor. He is globally weak 3/5 bilateral upper and lower extremities There is no diplopia. Objective Labs Result Diagrams: 08/31/20 05:46 08/30/20 18:00 [facility] Medical History (Updated 08/31/20 @ 03:43 by VICKI Mosher-SABAS) Glaucoma History of coma History of heart attack History of stroke History of stroke Sleep apnea Surgical History (Updated 08/31/20 @ 03:43 by DIANE Mosher) History of appendectomy History of mandibular surgery History of shoulder surgery Family History (Updated 08/31/20 @ 03:45 by DIANE Mosher) Father Pulmonary embolism Heart disease Mother No problems noted. Social History household members: none Smoking Status: Former smoker alcohol intake: current Assessment & Plan Assessment & Plan narrative: 1. 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 -MRI showed multifocal areas of acute ischemia most notably involving the right posterior temporal occipital lobe, in addition to bilateral cerebellar lesions and thalami. -echo showed normal LV, LVEF 60-65%, normal RV, mild TR -patient developed an episode of AFib with RVR, given the areas of multiple infarcts this leads to a probable embolic source. -patient has been started on apixaban, continue aspirin 81 mg q.d. due to history of RI although this would entail increase hemorrhagic risk -blood pressure elevated on admit and has drifted down and been mainly in normal range, not requiring antihypertensive -continue PT/OT/speech therapy -with his previous high functional level, his grasp of the present situation and how much more work is needed he would be an excellent candidate for inpatient rehab, making potentially much faster progress in an intensive environment such as that as compared to a slower paced rehab in a residential facility. This would increase his functional safety at home and undoubtedly increase his eventu al potential for return to independent maneuverability, word finding, swallow, appropriate vision. -new symptom of diplopia/blurry vision noted on September 03 2. Paroxysmal atrial fibrillation with rapid ventricular response, new diagnosis, RVR resolved and now in sinus rhythm. -TTE unremarkable, -started on apixaban 5 mg b.i.d. -diltiazem discontinued due to dizziness and bradycardia -telemetry currently showing sinus rhythm 3. Carotid and vertebral artery stenosis -patient also has history of CAD/RI -on MRA, patient has 50% focal stenosis at origin left ICA and probable high- grade stenosis at left vertebral artery origin -started on atorvastatin 80 mg Q HS -continue aspirin 81 mg q.d. 4. Orthostatic hypotension, resolved -patient became dizzy while working with therapy, noted to have orthostatic drops in blood pressure, was not taking much oral fluids -encourage p.o. fluid intake Patient is medically stable for discharge. Disposition: Acute rehab versus SNF, strongly favor the intensive therapy pace and expertise of inpatient rehab. 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
[2020-09-04] MEDS: SODIUM CHLORIDE 0.9% FLUSH 10 ML IV ×2 (08:41→21:32)
[2020-09-04] MEDS: TIMOLOL 0.5% OPHTH 1 EACH EYE-BOTH (08:41)
[2020-09-04] MEDS: APIXABAN 5 MG TABLET PO ×2 (08:44→21:33)
[2020-09-04] MEDS: ASPIRIN EC 81 MG TABLET PO (08:44)
--- NOTE | 2020-09-04 11:09 | PT.IPTN ---
Current Diagnoses Cerebral infarction, unspecified (08/31/20) Physical Therapy Treatment Note M2 PT-IP Current Condition Start: 08/31/20 08:41 Freq: NEEDED Status: Active Protocol: Document 09/04/20 11:57 MA (Rec: 09/04/20 12:12 MA [id number]) Physical Therapy Current Condition Current Condition Evaluation Date 08/31/20 Treatment Diagnosis Possible stroke, decreased balance, difficulty in walking Onset Date 10 days ago M3 PT-IP Subjective Start: 08/31/20 08:41 Freq: NEEDED Status: Active Protocol: Document 09/04/20 11:57 MA (Rec: 09/04/20 12:12 MA [id number]) Subjective Physical Therapy Visit Type Type Treatment Note Visit Start Time 10:46 Visit Stop Time 11:09 Total Visit Minutes 23 Number of PLASTIC JIG AND FIXTURE BUILDER Visits 4 Physical Therapy Visit Comments Patient Comments Pt willing to work with therapy. Requests using restroom once up. Therapy Pain Assessment Pain Present Pain Present Denied Pain M4 PT-IP Mobility and Gait Start: 08/31/20 08:41 Freq: NEEDED Status: Active Protocol: Document 09/04/20 11:57 MA (Rec: 09/04/20 12:12 MA [id number]) PT-Bed Mobility Assessment Supine to Sit Supine to Sit Standby Assistance,1 Person Assistance,Bedrails Sit to Supine Sit to Supine Standby Assistance,1 Person Assistance,Head of Bed Elevated Scooting Scooting to Edge of Bed Standby Assistance Scooting Up and Down in Bed Standby Assistance PT-Transfer Assessment Sit to and From Stand Sit to and from Stand Contact Guard Assistance,1 Person Assistance,Use of Upper Extremities Equipment Transfer Assistive Device Gait Belt,Front Wheeled Walker Orthotic/Prosthetic Devices or Brace: No Transfers Transfer Destination Bed,Toilet Transfer Technique Stand Step Pivot Transfer Ability Level of Assist Contact Guard Assistance,1 Person Assistance Comments Mobility Comments Pt able to transfer SBA for all bed mobility and CGA for sit<>stands from bed and toilet. When seated EOB, pt shows poor balance and needs min A to avoid falling toward R. Gait Assessment Gait Gait Assistance Required: Minimum Assistance,1 Person Assist Distance (Feet) 450 Able to Maintain Weight Bearing Status Yes During Gait Assistive Devices Assistive Device Gait Belt,Front Wheeled Walker Orthotic/Prosthetic Devices or Brace: No Gait Deviations General Gait Pattern Ataxic,Decreased Stride Length ,Decreased Feet Clearance, Flexed Trunk,Narrow Based Gait Factors Limiting Gait Function Factors Limiting Gait Function Decreased Activity Tolerance, Decreased Strength,Poor Balance,Poor Safety Awareness Comments Gait Comments Pt able to walk 450 feet around nursing station Min A with gait belt and FWW. He flexes trunk fwd, leaning heavily upon walker today, needing cues to keep walker closer to avoid falls. Pt initially needs Min A due to shuffling gait, but once pt has walked ~100 feet his foot clearance and stride length improve and he is able to walk CGA with verbal cues to keep walker close. PT-Balance Assessment Sitting Balance and Reactions Static Sitting Balance Ability Fair Dynamic Sitting Balance Ability Fair Standing Balance and Reactions Static Standing Balance Ability Fair Dynamic Standing Balance Ability Fair Device Used FWW M5 PT-IP Objective Assessments Start: 08/31/20 08:41 Freq: NEEDED Status: Active Protocol: Document 08/31/20 14:27 HH (Rec: 08/31/20 15:37 HH [id number]) Orientation Orientation/Cognition Level of Alertness Alert Orientation Name,Age,Birthday,Month,Date, Year,Day of Week,Place, Situation Language Function Ability Word Finding Difficulties Safety Awareness Decreased Safety Awareness Memory Description Short Term Impaired Comments SLUMs test from OT assessment Gross Range of Motion Upper Extremity ROM Assessment Right Impaired Impairments unable to reach overhead on RUE Lower Extremity ROM Assessment Bilaterally Impaired Impairments R>L weakness Strength Upper Extremity Strength Assessment Right Impaired Shoulder 3-/5 Elbow 5/5 Wrist 4/5 Hand 4/5 Lower Extremity Strength Assessment Bilaterally Impaired Hip 4-/5 Knee 4-/5 Ankle 4-/5 Comments Strength 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 Coordination Assessment Gross Coordination Gross Coordination Impaired Assessment Finger to Nose Test Minimal Impairment Pronation/Supination Test Minimal Impairment Foot Tapping Test Minimal Impairment Heel on [place] Test Minimal Impairment Coordination Comments overall slower Sensation Assessment Sensation Gross Sensation WNL Light Touch Intact Proprioception (Position) Intact Muscle Tone Muscle Tone WNL Yes Other Assessments Other Other Assessments pursuit and saccade = both produces symptoms of dizziness for both horizontal and vertical direction VOR1 = dizziness noted. nystagmus noted. decreased L peripheral vision field noted. M6 PT-IP Treatment Start: 08/31/20 08:41 Freq: NEEDED Status: Active Protocol: Document 09/04/20 11:57 MA (Rec: 09/04/20 12:12 MA [id number]) Physical Therapy Treatment Education Education Provided Safety M7 PT-IP Assessment and Plan Start: 08/31/20 08:41 Freq: NEEDED Status: Active Protocol: Document 09/04/20 11:57 MA (Rec: 09/04/20 12:12 MA [id number]) PT Summary Assessment and Plan Potential Rehabilitation Potential Good Status of Condition at Evaluation Evolving Summary Impairments ROM,Strength,Balance, Coordination,Sensation, Cognition,Bed Mobility, Transfers,Gait,Activity Tolerance Assessment Summary Pt is SBA for all bed mobility . Once seated EOB he needs Min A due to lateral lean R. Pt is safer using FWW and will recommend for d/c. He is initially Min A during gait, but once pt warms up his gait improves and he can walk CGA with verbal cues to keep walker close to body for safety. Pt needs his orange glasses for gait to be able to see distance. If pt improves, will return to using SPC for gait which was pt's baseline prior to admission. Goals Bed Mobility Goal Independent Transfer Goal Independent,Cane,Front Wheeled Walker Gait Goal Independent,Cane,Front Wheel Walker Gait Distance 500 Days to Meet Goals 5 Frequency of Treatment Frequency Of Treatment Once a Day Treatment Plan Physical Therapy Treatment Plan Bed Mobility Training,Transfer Training,Gait Training, Therapeutic Exercise,Balance Retraining,Discharge Planning, Hot or Cold Pack,Neuromuscular Re-ed,Coordination Retraining Other Recommendations and Next Treatment Continue gait training, going Focus back to SPC vs FWW if pt is safe Recommendations To Nursing Amount of Assist Needed 1 Person Assist Discharge Recommendations PT Discharge Recommendations Acute Rehab Equipment Needed for Home Before if go home, FWW if pt doesnt Discharge progress Transportation Needs at Discharge Private Vehicle
--- NOTE | 2020-09-04 12:59 | CM.DPC ---
Addendum entered by Jolanta Perez R.N. 09/04/20 14:21: Spoke to Franck in admissions at [facility], and she stated that they may be able to accept patient. She asked for additional information, H&P, as well as any clinical and therapy notes. Went ahead and faxed her over face sheet, H&P, today's progress note, and all therapy disciplines. She indicated that they can't accept today, but possibility of tomorrow. Original Note: DCP Cont: Spoke to Elodia at [facility]. She mentioned that she is continuing to work on appeal. Asked her if she was able to speak to anyone since it's a holiday, and she indicated that she was not, but she has sent the paper work in. Have also sent referrals to [facility], and both [facility] as well. P: DCP to continue to work on placement. Jolanta Perez RN/Print Inspector
[2020-09-04] MEDS: ATORVASTATIN 20 MG TABLET 80 MG PO (21:33)
[2020-09-04] MEDS: LATANOPROST 0.005% EYE DROPS 1 EACH EYE-BOTH (21:33)
[2020-09-05] VITALS (12 sets, daily range): BP systolic 103–140; BP diastolic 50–67; PULSE 49–64; RESP 12–18; TEMP 35.9–37.1; O2SAT 93–96
--- NOTE | 2020-09-05 07:20 | P.PN_ITS ---
Exam Vital Signs (past 8 hours): - 09/05/20 00:00 09/05/20 05:47 09/05/20 05:53 Temperature 97.1 F L 97.0 F L Pulse Rate 64 58 L Respiratory Rate 16 16 Blood Pressure 128/60 135/66 Pulse Oximetry 96 95 95 Oxygen Delivery Method Room Air Oxygen Flow Rate 0 Objective Labs Result Diagrams: 08/31/20 05:46 08/30/20 18:00 [facility] Medical History (Updated 08/31/20 @ 03:43 by VICKI Mosher-SABAS) Glaucoma History of coma History of heart attack History of stroke History of stroke Sleep apnea Surgical History (Updated 08/31/20 @ 03:43 by DIANE Mosher) History of appendectomy History of mandibular surgery History of shoulder surgery Family History (Updated 08/31/20 @ 03:45 by DIANE Mosher) Father Pulmonary embolism Heart disease Mother No problems noted. Social History household members: none Smoking Status: Former smoker alcohol intake: current Assessment & Plan Assessment & Plan narrative: 1. 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 -MRI showed multifocal areas of acute ischemia most notably involving the right posterior temporal occipital lobe, in addition to bilateral cerebellar lesions and thalami. -echo showed normal LV, LVEF 60-65%, normal RV, mild TR -patient developed an episode of AFib with RVR, given the areas of multiple infarcts this leads to a probable embolic source. -patient has been started on apixaban, continue aspirin 81 mg q.d. due to history of [place] although this would entail increase hemorrhagic risk -blood pressure elevated on admit and has drifted down and been mainly in normal range, not requiring antihypertensive -continue PT/OT/speech therapy -with his previous high functional level, his grasp of the present situation and how much more work is needed he would be an excellent candidate for inpatient rehab, making potentially much faster progress in an intensive environment such as that as compared to a slower paced rehab in a jail facility. This would increase his functional safety at home and undoubtedly increase his eventual potential for return to independent maneuverability, word finding, swallow, appropriate vision. -new symptom of diplopia/blurry vision noted on September 03 2. Paroxysmal atrial fibrillation with rapid ventricular response, new diagnosis, RVR resolved and now in sinus rhythm. -TTE unremarkable, -started on apixaban 5 mg b.i.d. -diltiazem discontinued due to dizziness and bradycardia -telemetry currently showing sinus rhythm 3. Carotid and vertebral artery stenosis -patient also has history of CAD/FL -on MRA, patient has 50% focal stenosis at origin left ICA and probable high- grade stenosis at left vertebral artery origin -started on atorvastatin 80 mg Q HS -continue aspirin 81 mg q.d. 4. Orthostatic hypotension, resolved -patient became dizzy while working with therapy, noted to have orthostatic drops in blood pressure, was not taking much oral fluids -encourage p.o. fluid intake Patient is medically stable for discharge. Disposition: Acute rehab versus SNF, strongly favor the intensive therapy pace and expertise of inpatient rehab. 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
[2020-09-05] MEDS: APIXABAN 5 MG TABLET PO ×2 (08:56→21:58)
[2020-09-05] MEDS: TIMOLOL 0.5% OPHTH 1 EACH EYE-BOTH (08:56)
[2020-09-05] MEDS: ASPIRIN EC 81 MG TABLET PO (08:56)
[2020-09-05] MEDS: SODIUM CHLORIDE 0.9% FLUSH 10 ML IV ×2 (08:56→21:59)
--- NOTE | 2020-09-05 09:27 | PC.NURSE ---
Patient feeling sleepy this morning, tolerated breakfast and was up to bathroom with assistance/ c/o feeling dizzy and kind of funny while up. Assisted back to bed by SCRAP MATERIALS BUYER and patient states dizziness is getting better. VSS, and denies other complaints. Dr. Garcia notified. No changes on telemetry noted. Continue to monitor. Call light within reach, bed alarm on for safety.
--- NOTE | 2020-09-05 10:50 | P.DS_ITS ---
History of Present Illness History of Present Illness Date Patient Seen: 09/05/20 Chief complaint: Possible stroke Narrative: Patient is a 74-year-old male Moustapha Coppola who presented today to the ED for a chief complaint of possible stroke/neuro deficit. Patient states that he has had 3 strokes in the past here for evaluation, and he thinks is another stroke. He states that approximately 10 days ago he felt a sensation the left side of his head that he described as ?popcorn popping ?shortly afterwards he started to have some slurring of his words which he states was new for him. He was also having some blurry vision. He is also having some weakness on his right side. Some of the symptoms have improved since the onset but none of them have completely resolved. He did have some deficits from his prior strokes but with time all those deficits have improved and he thinks what he is experiencing today are new. He has not tried anything for symptoms prior to arrival. He states the reason he came in today is because he talked with a friend who thought he should come in for evaluation. 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 Patient also has a history of heart attack, sleep apnea, and glaucoma. Patient reports he only takes aspirin daily. Upon admit to the floor patient complains of only continuing Ember mild slurred speech and no other deficits at this time. Patient denies chest pain, shortness of breath, nausea, vomiting, diarrhea, chills, fever, body aches, headache, changes in vision, difficulty walking, numbness/tingling, weakness, or difficulty walking or balance. Upon admit patient's blood pressure was slightly elevated at 192/89, but the rest of his vitals were unremarkable. patients CBC was unremarkable and within normal limits as was his CMP with the exception of a blood sugar of 76. Patient's liver enzymes were within normal limits, his tox screen was positive for opiates, and his initial troponin were negative. Patient had EKG with a s inus rhythm, ventricular rate 66, without ST or T-wave changes. Patient's troponin was within normal limits. Patient's head CT demonstrated an old infarct in the right occipital lobe, and noted no acute intracranial abnormalities. NIH score of 2 both in the ED and upon admit to the floor. Patient admitted for neurological deficit, stroke rule out. Discharge Providers Provider Date of admission: 08/31/20 13:50 Discharge Date: 09/05/20 Consults: 08/30/20 20:10 Consult to Discharge Planning Routine Comment: Consult to Occupational Therapy Evaluate & Treat Comment: Physician Instructions: Evaluate and treat Consult to Physical Therapy Evaluate & Treat Comment: Physician Instructions: Evaluate and Treat Consult to Speech Therapy Evaluate & Treat Comment: Physician Instructions: Evaluate and treat Discharge provider: Deanna Garcia MD Summary Hospital Course Discharge Diagnosis: 1. 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 Paroxysmal atrial fibrillation with rapid ventricular response, new diagnosis, RVR resolved and now in sinus rhythm. 3. Carotid and vertebral artery stenosis 4. Orthostatic hypotension, resolved Hospital Course: 1. 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 -MRI showed multifocal areas of acute ischemia most notably involving the right posterior temporal occipital lobe, in addition to bilateral cerebellar lesions a nd thalami. -echo showed normal LV, LVEF 60-65%, normal RV, mild TR -patient developed an episode of AFib with RVR, given the areas of multiple infarcts this leads to a probable embolic source. -patient has been started on apixaban, continued on aspirin 81 mg q.d. due to history of [place] although this would entail increase hemorrhagic risk -blood pressure elevated on admit and has drifted down and been mainly in normal range, not requiring antihypertensive -continue PT/OT/speech therapy -with his previous high functional level, his grasp of the present situation and how much more work is needed he would be an excellent candidate for inpatient rehab, making potentially much faster progress in an intensive environment such as that as compared to a slower paced rehab in a nursing home facility. This would increase his functional safety at home and undoubtedly increase his eventual potential for return to independent maneuverability, word finding, swallow, appropriate vision. -new symptom of diplopia/blurry vision noted on September 03 2. Paroxysmal atrial fibrillation with rapid ventricular response, new diagnosis, RVR resolved and now in sinus rhythm. -TTE unremarkable, -started on apixaban 5 mg b.i.d. -diltiazem discontinued due to dizziness and bradycardia -telemetry currently showing sinus rhythm 3. Carotid and vertebral artery stenosis -patient also has history of CAD/NM -on MRA, patient has 50% focal stenosis at origin left ICA and probable high- grade stenosis at left vertebral artery origin -started on atorvastatin 80 mg Q HS -continue aspirin 81 mg q.d. 4. Orthostatic hypotension, resolved -patient became dizzy while working with therapy, noted to have orthostatic drop s in blood pressure, was not taking much oral fluids -encourage p.o. fluid intake Patient is medically stable for discharge. Disposition: Acute rehab versus SNF, strongly favor the intensive therapy pace and expertise of inpatient rehab. 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 Status at Discharge Cognitive/behavioral status at discharge: at baseline, oriented Functional status at discharge: wheelchair bound Overall status at discharge: patient is progressing back to baseline Exam Vital Signs (past 8 hours): - 09/05/20 05:47 09/05/20 05:53 09/05/20 08:32 Temperature 97.0 F L Pulse Rate 58 L 58 L Respiratory Rate 16 16 Blood Pressure 135/66 Pulse Oximetry 95 95 95 09/05/20 09:00 09/05/20 09:26 Temperature 97.9 F Pulse Rate 56 L 64 Respiratory Rate 18 Blood Pressure 103/50 L 135/66 Pulse Oximetry 96 Oxygen Delivery Method Room Air Oxygen Flow Rate 0 Narrative Exam Narrative: He is alert and oriented x3. No apparent distress Heart is regular rate and rhythm without murmur Lungs are clear to auscultation bilaterally Extremities have no ankle edema Neurological exam Tongue protrudes midline Both upper extremity pre k special education teacher strengths are symmetric at 4/5. Upgoing Babinski's bilaterally The left foot is weaker than the right foot He is quite sleepy today and mumbles, sometimes nonsensically. Objective Labs Result Diagrams: 08/31/20 05:46 08/30/20 18:00 [facility] Medical History (Updated 08/31/20 @ 03:43 by DIANE Mosher) Glaucoma History of coma History of heart attack History of stroke History of stroke Sleep apnea Surgical History (Updated 08/31/20 @ 03:43 by DIANE Mosher) History of appendectomy History of mandibular surgery History of shoulder surgery Family History (Updated 08/31/20 @ 03:45 by DIANE Mosher) Father Pulmonary embolism Heart disease Mother No problems noted. Social History household members: none Smoking Status: Former smoker alcohol intake: current Discharge Assessment & Plan Assessment and Plan Assessment: He is medically stable for discharge, pending insurance approval from [facility] for nursing home facility versus inpatient rehab. I understand that an appeal of the 1st denial for inpatient rehab is in process. Discharge Plan Discharge Plan Patient Disposition: SNF [facility] Under care of provider: Dr. Garcia Discharge orders & Medications Prescriptions: New acetaminophen 325 mg Tablet 650 mg PO Q6HR PRN (Reason: Fever/Mild Pain (1-3)) Qty: 30 RF: 0 Eliquis 5 mg Tablet 5 mg PO BID Qty: 60 RF: 0 sennosides [senna] 8.6 mg Tablet 17.2 mg PO BEDTIME Qty: 30 RF: 0 atorvastatin [Lipitor] 20 mg Tablet 80 mg PO BEDTIME Qty: 120 RF: 0 aspirin 81 mg Tablet,Delayed Release (Dr/Ec) 81 mg PO DAILY Qty: 30 RF: 0 alum-mag hydroxide-simeth [Mag-Al Plus] 200-200-20 mg/5 mL Suspension 30 ml PO Q6HR PRN (Reason: Dyspepsia) Qty: 150 RF: 0 oxycodone 5 mg Tablet 5 mg PO Q6HR PRN (Reason: Pain, Moderate (4-6)) Qty: 15 RF: 0 Continued latanoprost 0.005 % drops 1 drp EYE-BOTH DAILY RF: 0 timolol maleate 0.5 % Drops, Once Daily 1 drp EYE-BOTH DAILY RF: 0 Discontinued garlic Capsule 1,000 mg PO QPC RF: 0 aspirin 81 mg Tablet 81 mg PO DAILY RF: 0 Diet/Activity/Treatments Diet: Low-cholesterol Liquid consistency: Normal/Thin [facility] Rehab type: Physical therapy, Occupational therapy and Speech therapy
--- NOTE | 2020-09-05 11:30 | ST.IPTN ---
Visit Care Team Role Provider Type Eduardo Cuellar DO Emergency Provider Physician Address: [address] [place] [address], [id number] [facility] Ad[facility] Provider Physician Attending Provider Address: [address] [place] [address], [id number] PERFORMANCE TEST ARCHITECT Treatment Note PERFORMANCE TEST ARCHITECT Clinical Instructor Line Start: 08/31/20 16:53 Freq: Status: Active Protocol: Document 08/31/20 17:17 ML (Rec: 08/31/20 17:17 ML [id number]) Clinical Instructor Signature Clinical Instructor Clinical Instructor Yes PERFORMANCE TEST ARCHITECT Treatment Note Start: 09/01/20 12:24 Freq: Status: Active Protocol: Document 09/05/20 11:28 MG (Rec: 09/05/20 11:30 MG [id number]) Speech Pathology Treatment Note Session Time Visit Start Time 10:50 Visit Stop Time 11:05 Total Visit Minutes 15 Visit Information Visit Number 5 Setting Treatment Setting Acute Care Visit Type Note Type Treatment Note Next Note Type Next Note Type Treatment Note General Information General Information Patient is a 74-year-old male who presented today to the ED for a chief complaint of possible stroke/neuro deficit. 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 He states that approximately 10 days ago he felt a sensation the left side of his head that he described as ?popcorn popping ?shortly afterwards he started to have some slurring of his words which he states was new for him. He was also having some blurry vision. He is also having some weakness on his right side. Some of the symptoms have improved since the onset but none of them have completely resolved. He did have some deficits from his prior strokes but with time all those deficits have improved and he thinks what he is experiencing today are new . He has not tried anything for symptoms prior to arrival. He states the reason he came in today is because he talked with a friend who thought he should come in for evaluation. 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 Patient also has a history of heart attack, sleep apnea, and glaucoma. Patient reports he only takes aspirin daily. Upon admit to the floor patient complains of only continuing mild slurred speech and no other deficits at this time. Subjective Identification Type Name,ID Wristband Observations/Patient Presentation Pt was resting in bed. Per nurse, he was very sleepy. per nurse as well, pt continues to tolerate diet. Pt willing to work with therapy, however was fatiguing quickly, so therapy was shorter today. Chief Complaint(s) Speech,Language Patient Knowledge/Awareness of PERFORMANCE TEST ARCHITECT Role Good in Treatment Objective Short Term Goals 1. Pt will continue to follow safe swallow strategies to reduce risk penetration and aspiration. 2. Pt will participate in cognitive communication therapy for deficits in word finding and developing strategies he can implement independently. 3. Pt will work on oral motor exercises to increase strength and ROM of his lips and tongue. Detention Goals Pt will demonstrate continual tolerance of least restrictive diet. Treatment Activities PERFORMANCE TEST ARCHITECT and pt ran through lip and tongue exercises in bed. Pt reported he did practice yesterday. Speech intelligibility noted to be worse today, most likely due to fatigue. PERFORMANCE TEST ARCHITECT reminded pt of intelligibility strategies to help improve his speech when communicating with others. Pt had no further questions prior to PERFORMANCE TEST ARCHITECT leaving the room. Assessment Patient Response to Treatment Good Rehab Potential Good Impairments Identified Dysarthria,Memory - Short Term ,Speech Intelligibility Progress Towards Goals Good Progress Assessment of Overall Progress Improving Assessment of Improvement Pt reports he is getting better by the day and reports to be having improvements in his speech and swallowing. Pt tolerated breakfast with no overt s/sx of aspiration. Pt is following through on exercise program to regain strength in his oral cavity. Reviewed with Patient Goals,Progress Being Made,Home Exercise Program Patient/Caregiver Understanding Good Plan Comment daily during hospital stay Therapeutic Contents Cognitive-Linguistic Training, Intelligibility,Oral Motor Training Provided Patient/Caregiver Instruction Home Exercise Program,Plan of Care,Questions/Concerns Therapy Recommendations Continue with Current Program
--- NOTE | 2020-09-05 15:00 | CM.DPC ---
DCP Cont: SW spoke to MD, PT/OT and discussed if pt has made enough progress to d/c home since Acute Rehab was denied by pt's [employer] insurance. Per MD/PT/OT, they do not feel pt is safe to return home alone at this time and could benefit from either Acute or SNF rehab. GENIE spoke to Elodia at [facility] Acute rehab and she confirms she spoke to Jesse today regarding her expedited appeal of denial and they confirm that they received the appeal and can be up to 72 hours for a decision. Elodia cannot safely guess if denial will be overturned or not, but aware that pt cannot just stay in the hospital indefinitely but worried if SNF attempts auth as back up it could hurt the appeal potentially for Acute Rehab. GENIE called previously faxed SNF referrals: [facility]: reviewing but unsure of male bed availability but may know more tomorrow 09/06/20. [facility]: decline pt due to [employer] as they do not reimburse well and they already have multiple [employer] pt's in their building. [facility]: unsure of male bed availability. GENIE then attempted these [employer] contracted facilities: [facility]- they had been contracted but currently are not active so they could work on one time contract but since out of network a fairly high copay out of pocket. [facility]- not contracted [facility]- not contracted now [facility]- no admissions staff until tomorrow [facility]- no answer [facility]- contracted and have a male opening tomorrow, faxed and they will review. Gregoria at [facility]- admission phone [phone] They have openings and willing to review and can start auth after review and GENIE requested that if they can accept to please start auth and not wait for Acute Rehab answer at this time. GENIE faxed to [phone]. GENIE met bedside with pt who was much less engaged today and seemed to be processing slower and updated on above and he is still willing for SW to continue with SNF referrals and determining if insurance will auth SNF. Plan: GENIE to follow closely with Elodia at Acute Rehab, Gregoria [facility] and [facility] SNF's to determine if any can accept tomorrow [employer] auth. Ilda Velasquez MSW
--- NOTE | 2020-09-05 15:16 | OT.IP.TRT ---
Current Diagnoses Cerebral infarction, unspecified (08/31/20) Occupational Therapy Treatment Note M2 OT-IP Current Condition Start: 08/31/20 15:04 Freq: Status: Active Protocol: Document 08/31/20 15:05 [facility] (Rec: 08/31/20 15:40 [facility] [id number]) Occupational Therapy Current Condition Current Condition Evaluation Date 08/31/20 Treatment Diagnosis Acute CVA Diagnosis Onset Date 08/30/20 M3 OT- IP Subjective and Pain Start: 08/31/20 15:04 Freq: Status: Active Protocol: Document 09/05/20 15:52 [facility] (Rec: 09/05/20 16:00 [facility]GR [id number]) OT- Subjective Occupational Therapy Visit Type Type Progress Note Visit Start Time 14:50 Visit Stop Time 15:16 Total Visit Minutes 26 Notes Partial co-treat with P.T. OT Pain Assessment Pain When Pain Assessed At Rest Pain Present Pain Present Denied Pain M4 OT- IP ADL's Start: 08/31/20 15:04 Freq: Status: Active Protocol: Document 09/05/20 15:52 CGR (Rec: 09/05/20 16:00 CGR [id number]) OT [id number] Comments OT Self-Feeding Comments Not meal time OT ADL-Grooming Comments OT Grooming Comments Not performed OT ADL-Oral Care Comments Oral Care Comments Not performed OT ADL-Dressing Comments OT Dressing Comments Not performed OT ADL-Toileting General Evaluation Toileting Ability Moderate Assistance,Maximum Assistance Areas Needing Assistance Manage Clothing,Perform Perineal Hygiene Comments OT Toileting Comments Pt stating need to go to the bathroom but reporting dizziness. Pt then started urination standing without urinal and finished using the urinal with mod to max a. Pt needed assist for doffing soilded briefs and getting urinal in place. OT ADL-Bathing Comments OT Bathing Comments Not performed M5 OT- IP IADL's Start: 08/31/20 15:04 Freq: Status: Active Protocol: Document 08/31/20 15:05 [facility] (Rec: 08/31/20 15:40 [facility] [id number]) OT-Instrumental Activities of Daily Living Home Safety Awareness Awareness of Need for Assistance at Home Decreased Awareness Ability to Problem Solve Emergency Able to Problem Solve Situations Medication Management Medication Management Comments Pt now having balance and cognitive deficits and would be best for pt to have asisst for all needs at this time. M6 OT- IP Functional Cognition Start: 08/31/20 15:04 Freq: Status: Active Protocol: Document 09/05/20 15:52 C[facility] (Rec: 09/05/20 16:00 CGR [id number]) Cognitive Factors Limiting Selfcare Function Cognitive Ability Level of Alertness Alert Ability to Follow Commands Able to Follow One Step Commands with Increased Time, Able to Follow One Step Commands with Repetition Cognitive Comments Cognitive Assessment Comments Pt with delayed responses and continued poor safety awareness on this date. M7 OT- IP Mobility and Balance Start: 08/31/20 15:04 Freq: Status: Active Protocol: Document 09/05/20 15:52 CGR (Rec: 09/05/20 16:00 CGR [id number]) OT- Bed Mobility Assessment Supine to Sit Supine to Sit Assist Maximum Assistance,1 Person Assistance,Head of Bed Elevated,Bedrails Scooting Scooting to Edge of Bed Moderate Assistance,1 Person Assistance,Head of Bed Elevated,Bedrails OT-Transfer Assessment Sit to and From Stand Sit to and from Stand Moderate Assistance,2 Person Assistance Transfers Transfer Ability Moderate Assistance,2 Person Assistance Technique Transfer Destination Bed,Chair Transfer Technique Stand Step Pivot Devices Transfer Assistive Devices Gait Belt,Front Wheeled Walker Comments Mobility Comments Pt with poor balance leaning heavy to the L and poor safety awareness with mobility. Pt transfered to chair only d/t change in status. Nursing and MD notified. OT- Balance Assessment Sitting Balance and Reactions Static Sitting Balance Ability Poor Dynamic Sitting Balance Ability Poor M8 OT- IP Objective Assessments Start: 08/31/20 15:04 Freq: Status: Active Protocol: Document 09/01/20 12:20 [facility] (Rec: 09/01/20 12:49 [facility] [id number]) OT- Coordination Assessment Comments Coordination Comments Today pt able to touch his finger to nose with both right and left index finger with no problem and good accuracy. M9 OT- IP Assessment and Plan Start: 08/31/20 15:04 Freq: Status: Active Protocol: Document 09/05/20 15:52 CGR (Rec: 09/05/20 16:00 CGR [id number]) OT Summary Assessment and Plan Potential Rehabilitation Potential Excellent Analytic Complexity at Evaluation Moderate Summary OT Impairments Strength,Balance,Functional Cognition,Functional Mobility, Self-Feeding,Grooming,Dressing ,Toileting,Bathing,Toilet Transfers,Shower Transfers, Activity Tolerance Progress Towards Goals Slow Progress due to Medical Issues,Slow Progress due to Activity Tolerance Assessment Summary Pt appears lethargic in todays session with delayed responses and poor safety awareness. Mod x2 for transfer to chair and max x 1 with HOB up. Pt Urinated initially without urinal then finished with urinal and needed assist for doffing soild underwear. Pt states dizziness with fluctuating BP: sitting 122/68 , standing 135/69. Concern for pt's change in abilities. MD notified. Pt will benefit from SNF upon discharge. Goals Self-Feeding Goal Independent Grooming Goal Independent Dressing Goal Independent Toileting Goal Independent Bathing Goal Independent Shower Transfer Goal Independent Days to Meet Goals 20 Frequency of Treatment Frequency Of Treatment Once a Day Treatment Plan OT Treatment Plan ADL Training,Functional Cognition Training,Functional Mobility,Therapeutic Exercises ,Vision Retraining,Patient/ Family Education,Discharge Planning Other Treatment Recommendations and Next Increased endurance to perform Treatment Focus ADLs Discharge Recommendations OT Discharge Recommendations Acute Rehab Transportation Needs at Discharge Private Vehicle,Wheelchair/ Cabulance
--- NOTE | 2020-09-05 15:18 | PT.IPTN ---
Current Diagnoses Cerebral infarction, unspecified (08/31/20) Physical Therapy Treatment Note M2 PT-IP Current Condition Start: 08/31/20 08:41 Freq: NEEDED Status: Active Protocol: Document 09/05/20 15:21 MA (Rec: 09/05/20 15:33 MA [id number]) Physical Therapy Current Condition Current Condition Evaluation Date 08/31/20 Treatment Diagnosis Possible stroke, decreased balance, difficulty in walking Onset Date 10 days ago M3 PT-IP Subjective Start: 08/31/20 08:41 Freq: NEEDED Status: Active Protocol: Document 09/05/20 15:21 MA (Rec: 09/05/20 15:33 MA [id number]) Subjective Physical Therapy Visit Type Type Treatment Note Visit Start Time 15:00 Visit Stop Time 15:18 Total Visit Minutes 18 Notes Co-Treat 18 min with OT Number of MOVING CONSULTANT Visits 5 Physical Therapy Visit Comments Patient Comments Pt is found with OT at EOB. He reports feeling dizzy but is willing to transfer to chair to sit up for afternoon Therapy Pain Assessment Pain Present Pain Present Denied Pain M4 PT-IP Mobility and Gait Start: 08/31/20 08:41 Freq: NEEDED Status: Active Protocol: Document 09/05/20 15:21 MA (Rec: 09/05/20 15:33 MA [id number]) PT-Transfer Assessment Sit to and From Stand Sit to and from Stand Moderate Assistance,2 Person Assistance,Use of Upper Extremities Equipment Transfer Assistive Device Gait Belt,Front Wheeled Walker Orthotic/Prosthetic Devices or Brace: No Transfers Transfer Destination Chair Transfer Technique Stand Step Pivot Transfer Ability Level of Assist Moderate Assistance,2 Person Assistance Comments Mobility Comments Pt is found with OT at EOB. He is dizzy today and needs Mod Ax2 to transfer to chair with gait belt and FWW. Gait Assessment Comments Gait Comments Not assessed this session due to increased dizziness PT-Balance Assessment Sitting Balance and Reactions Static Sitting Balance Ability Fair Dynamic Sitting Balance Ability Fair Standing Balance and Reactions Static Standing Balance Ability Fair Dynamic Standing Balance Ability Fair Device Used FWW M5 PT-IP Objective Assessments Start: 08/31/20 08:41 Freq: NEEDED Status: Active Protocol: Document 08/31/20 14:27 HH (Rec: 08/31/20 15:37 HH [id number]) Orientation Orientation/Cognition Level of Alertness Alert Orientation Name,Age,Birthday,Month,Date, Year,Day of Week,Place, Situation Language Function Ability Word Finding Difficulties Safety Awareness Decreased Safety Awareness Memory Description Short Term Impaired Comments SLUMs test from OT assessment Gross Range of Motion Upper Extremity ROM Assessment Right Impaired Impairments unable to reach overhead on RUE Lower Extremity ROM Assessment Bilaterally Impaired Impairments R>L weakness Strength Upper Extremity Strength Assessment Right Impaired Shoulder 3-/5 Elbow 5/5 Wrist 4/5 Hand 4/5 Lower Extremity Strength Assessment Bilaterally Impaired Hip 4-/5 Knee 4-/5 Ankle 4-/5 Comments Strength Comments noticed hand porter baggage is significantly less on R hand pt stated residual weakness on L from his previous stroke. Coordination Assessment Gross Coordination Gross Coordination Impaired Assessment Finger to Nose Test Minimal Impairment Pronation/Supination Test Minimal Impairment Foot Tapping Test Minimal Impairment Heel on Beckham Test Minimal Impairment Coordination Comments overall slower Sensation Assessment Sensation Gross Sensation WNL Light Touch Intact Proprioception (Position) Intact Muscle Tone Muscle Tone WNL Yes Other Assessments Other Other Assessments pursuit and saccade = both produces symptoms of dizziness for both horizontal and vertical direction VOR1 = dizziness noted. nystagmus noted. decreased L peripheral vision field noted. M6 PT-IP Treatment Start: 08/31/20 08:41 Freq: NEEDED Status: Active Protocol: Document 09/05/20 15:21 MA (Rec: 09/05/20 15:33 MA [id number]) Physical Therapy Treatment Education Education Provided Safety M7 PT-IP Assessment and Plan Start: 08/31/20 08:41 Freq: NEEDED Status: Active Protocol: Document 09/05/20 15:21 MA (Rec: 09/05/20 15:33 MA [id number]) PT Summary Assessment and Plan Potential Rehabilitation Potential Good Status of Condition at Evaluation Evolving Summary Impairments ROM,Strength,Balance, Coordination,Sensation, Cognition,Bed Mobility, Transfers,Gait,Activity Tolerance Assessment Summary Pt has been dizzy all day and nurses are aware. PT encouraged pt to sit up for afternoon to help with dizziness. OT present in room upon arrival taking pt's BP; seated 122/68, standing 135/69 . He is able to transfer to chair with gait belt and FWW, Mod Ax2. Pt is unsafe for gait training today due to dizziniess. Goals Bed Mobility Goal Independent Transfer Goal Independent,Cane,Front Wheeled Walker Gait Goal Independent,Cane,Front Wheel Walker Gait Distance 500 Days to Meet Goals 5 Frequency of Treatment Frequency Of Treatment Once a Day Treatment Plan Physical Therapy Treatment Plan Bed Mobility Training,Transfer Training,Gait Training, Therapeutic Exercise,Balance Retraining,Discharge Planning, Hot or Cold Pack,Neuromuscular Re-ed,Coordination Retraining Other Recommendations and Next Treatment Continue gait training, going Focus back to SPC vs FWW if pt is safe Recommendations To Nursing Amount of Assist Needed 1 Person Assist Discharge Recommendations PT Discharge Recommendations Acute Rehab Equipment Needed for Home Before if go home, FWW if pt doesnt Discharge progress Transportation Needs at Discharge Private Vehicle
[2020-09-05 16:43] LABS: Add Manual Diff / Slide Review NO; Basophils Absolute Auto 0 /uL (0-100); Basophils Percent Auto 0.2 % (0-2); Eosinophils Absolute Auto 100 /uL (0-450); Eosinophils Percent Auto 1.1 % (2-4); Hematocrit 47.4 % (41-53); Hemoglobin 16.9 g/dL (13.5-17.5); Lymphocytes Absolute Auto 1600 /uL (1100-4500); Lymphocytes Percent Auto 15.9 % (25-40); Mean Corpuscular HGB Conc 35.6 % (30-36); Mean Corpuscular Hemoglobin 36.1 PG (26-34); Mean Corpuscular Volume 101.4 fL (80-100); Monocytes Absolute Auto 900 /uL (0-900); Monocytes Percent Auto 8.9 % (3-14); Neutrophils Absolute Auto 7200 /uL (1500-7000); Neutrophils Percent Auto 73.9 % (50-75); Platelet Count 193 X10^3/uL (150-400); Red Blood Cell Count 4.67 X10^6/uL (4.5-5.9); Red Cell Distribution Width 12.9 % (11.6-14.8); White Blood Cell Count 9.8 X10^3/uL (4.5-11.0)
[2020-09-05 16:54] LABS: BUN Creatinine Ratio 25.8 (6-22); Blood Urea Nitrogen 24 mg/dL (9-20); Calcium 9.4 mg/dL (8.4-10.2); Carbon Dioxide 26 mmol/L (22-32); Chloride 103 mmol/L (98-107); Estimated Glomerular Filt Rate > 60.0 mL/min (>60); Glucose 107 mg/dL (80-110); HEMOLYSIS 19 (0-50); Potassium 4.5 mmol/L (3.4-5.1); Sodium 138 mmol/L (137-145)
--- NOTE | 2020-09-05 18:50 | PC.NURSE ---
Addendum entered by Nicole Avina R.N. 09/06/20 15:42: pt with noticeable difference in speech. ALL words/sentences severely slurred and difficult to understand, increased delayed movements with bilat arms with drift but not to bed, no drift with legs, vision is currently blurred/double in all visual capps (yesterday only to left bottom field). Hospitalists aware and new orders for CT and MRI. Original Note: 1630- pt up with Pt reports dizzy, and has been experiencing dizziness more than usual today. Dr Garcia aware. Pt also reports speech is slightly more slurry than usual. No new issues on telemetry, or NIH score high. NIH score - 3. 93% RA, denies SOB, nausea, or any other c/o. Back to bed, ate dinner, reports comfortable, call light in reach and bed alarm on for safety. New urinal at bedside and pt aware of new order for UA.
[2020-09-05 19:05] LABS: Bacteria Urine None Seen
[2020-09-05 19:12] LABS: Appearance Urine UA CLEAR; Bilirubin Urine UA NEGATIVE (NEGATIVE); Color Urine UA YELLOW; Glucose Urine UA NEGATIVE (Negative); Ketones Urine UA NEGATIVE (NEGATIVE); Leukocyte Esterase Urine UA NEGATIVE (NEGATIVE); Nitrite Urine UA NEGATIVE (Negative); Occult Blood Urine UA TRACE-LYSED (Negative); Protein Urine UA NEGATIVE (Negative); Specific Gravity Urine UA 1.015 (1.000-1.035); Urobilinogen Urine UA 0.2 E.U./dL (0.2); pH Urine UA 5.5 (4.5-8.0)
[2020-09-05 19:21] LABS: RBC Urine 0-1/HPF (0-5/HPF); Squamous Epithelial Cell Urine 0-1 /HPF (0-5/HPF); WBC Urine 0-1/HPF (0-5/HPF)
[2020-09-05 19:22] LABS: Culture Indicated Urine Cult Not Indicated
--- NOTE | 2020-09-05 19:28 | DI.MRI.S_ITS ---
PROCEDURE: MR STROKE Pre- and post-contrast brain MRI, non-contrast brain MR angiogram, pre- and postcontrast neck MR angiogram INDICATIONS: Change in mental status TECHNIQUE: Brain: Noncontrast axial T1 spin echo, axial T2 fast spin echo, sagittal and axial FLAIR, coronal T2 fast spin echo, axial gradient echo, axial diffusion and ADC through the brain. After the administration of contrast, axial 3D VIBE of the cranial vasculature and brain. Brain MRA: Non-contrast 3-D time of flight MR angiogram, with multiple onpvziq-yldaqlgxb-scnunpblrq (MIP) reformats performed. Neck MRA: Axial and sagittal TruFISP through the neck. Coronal dynamic MR angiogram during administration of contrast in the arterial and venous phases, with 3-dimenstional dudbzjk-jbuwxrpko-xkzggfvbnl (MIP) reformats constructed from subtraction images. COMPARISON: [facility], MR, MR STROKE, 08/31/2020, 10:22. [facility], CT, CT HEAD/BRAIN WO CON, 08/30/2020, 18:07. [facility], CT, CT ANGIO HEAD AND NECK, 09/06/2020, 9:08. [facility], CT, CT HEAD/BRAIN WO CON, 09/05/2020, 22:16. FINDINGS: Image quality: This examination is limited by involuntary motion artifact. BRAIN: CSF spaces: Ventricles are normal in size and shape. Basal cisterns are patent. No extra-axial fluid collections. Brain: Numerous areas of abnormally increased diffusion-weighted signal can be seen, including involving the right lateral cerebellum, the right posterior medial occipital lobe, and the nidhi. More subtle areas of abnormal diffusion-weighted signal can also be seen involving the basal ganglia and the right thalamus. There is abnormal decreased signal seen on the accompanying ADC map. These areas of infarction are overall more prominent than on the recent MR study performed 08/31/2020, particular within the right thalamus. No intracranial bleeds or mass effects. Bryant-white matter interface is normal. Brainstem appears normal. Normal intravascular flow voids are present. No abnormal intracranial enhancement. Skull and face: Calvarial marrow signal is normal. Orbits appear normal. Sinuses: Sinuses and mastoids are clear. BRAIN MR ANGIOGRAM: Anterior circulation: Intracranial internal carotid arteries demonstrate atherosclerotic irregularity, with 50-60% stenosis seen on both sides. This process is better demonstrated on the accompanying CT angiogram. The flow within the paired anterior cerebral arteries is normal and symmetric. The flow within the middle cerebral arteries is normal and symmetric. The anterior communicating artery is seen. No stenoses, occlusions, or aneurysms. Posterior circulation: There are areas of near complete occlusion seen within the right V4 segment. The right vertebral artery is dominant to the left. The left vertebral artery largely terminates in the left posterior inferior cerebellar artery. There is almost no flow seen within the inferior basilar artery. There is almost no flow seen throughout the posterior cerebral artery systems. NECK MR ANGIOGRAM: Carotids: Great vessels demonstrate a conventional anatomy as they arise from the aortic arch. The origins of the common carotid arteries appear patent. The calibers and courses of both common carotid arteries are normal. The bifurcation regions demonstrate atherosclerotic irregularity. There is 70-80% stenosis seen involving the left proximal internal carotid artery, which is overall better demonstrated on the accompanying CT angiogram. No hemodynamically significant stenosis can be seen involving the right internal carotid artery. Mild tortuosity can be seen of the more distal internal carotid arteries, which demonstrate normal caliber. Posterior circulation: There is approximately 50% stenosis seen involving the right vertebral artery origin. There is high-grade stenosis (at least 80%) involving the left vertebral artery origin. The right vertebral artery is dominant to the left. Miscellaneous: Subclavian arteries appear patent. Pre-contrast images through the neck show no soft tissue abnormalities. IMPRESSION: BRAIN MRI: Areas of infarction are seen, which are most prominent within the posterior brain, including the right cerebellum. The areas of infarction are worse than on the prior examination. BRAIN MR ANGIOGRAM: High-grade stenosis with nearly no flow seen within areas of the right V4 segment and the proximal basilar artery. There is almost no flow seen within the posterior cerebral arteries on both sides. NECK MR ANGIOGRAM: 70-80% stenosis seen involving the left proximal internal carotid artery. Stenosis seen involving the origins of the vertebral arteries, left worse than right. The right vertebral artery is dominant to the left. Dictated by: Rohit Hunt M.D. on 09/06/2020 at 9:21 Approved by: Rohit Hunt M.D. on 09/06/2020 at 9:29
[2020-09-05] MEDS: ATORVASTATIN 20 MG TABLET 80 MG PO (21:58)
[2020-09-05] MEDS: SENNOSIDES 8.6 MG TABLET 17.2 MG PO (21:58)
[2020-09-05] MEDS: LATANOPROST 0.005% EYE DROPS 1 EACH EYE-BOTH (22:00)
--- NOTE | 2020-09-05 22:07 | DI.CT.S_ITS ---
PROCEDURE: CT HEAD/BRAIN WO CON INDICATIONS: Change in neuro function TECHNIQUE: Noncontrast 4.5 mm thick angled axial sections acquired from the foramen magnum to the vertex, with coronal and sagittal reformats. For radiation dose reduction, the following was used: automated exposure control, adjustment of mA and/or kV according to patient size. COMPARISON: [facility], CT, CT HEAD/BRAIN WO CON, 08/30/2020, 18:07. [facility], MR, MR STROKE, 08/31/2020, 10:22. FINDINGS: Image quality: Excellent. CSF spaces: Basal cisterns are patent. No extra-axial fluid collections. The ventricles are symmetric in size and shape. Brain: No intracranial bleeds or masses. There is cerebral volume loss for age, with resultant ventricular and sulcal prominence. There are periventricular and deep white matter chronic small vessel ischemic changes. Previous areas of acute ischemia noted on MRI brain demonstrate expected evolution all areas hypodensity. In addition, there is a more prominent focus of low attenuation within the right cerebellum compared to prior CT head of 08/30/2020. It is noted that this region demonstrating only minimal punctate areas of restricted diffusion. In addition, there is more prominent appearance of the low-attenuation within the nidhi. There is intracranial internal carotid artery atherosclerosis. Skull and face: Calvarium and visualized facial bones appear intact, without suspicious lesions. Sinuses: Old bilateral maxillary fractures. IMPRESSION: 1. Expected evolution of previous foci of acute/subacute ischemia scattered within the thalami, right parietal occipital lobes as well as cerebellum bilaterally. No superimposed hemorrhage. 2. Notable increased focus of confluent low attenuation within the right cerebellum as well as nidhi compared to prior exam. It is noted that these areas demonstrated either none or only punctate areas of previous restricted diffusion indicating ischemia. Superimposed acute/subacute ischemia should be considered. MRI may be helpful for additional evaluation. Dictated by: Eleanor Hicks M.D. on 09/06/2020 at 7:58 Approved by: Eleanor Hicks M.D. on 09/06/2020 at 8:02
[2020-09-06] VITALS (10 sets, daily range): BP systolic 113–143; BP diastolic 50–77; PULSE 54–60; RESP 12–18; TEMP 35.7–36.5; O2SAT 92–97
--- NOTE | 2020-09-06 08:35 | DI.CT.S_ITS ---
PROCEDURE: CT ANGIO HEAD AND NECK INDICATIONS: abnormal brain MRA findings TECHNIQUE: Pre-contrast 4.5 mm thick sections acquired from the foramen magnum to the vertex. After the administration of intravenous contrast, 1 mm thick sections acquired from the aortic arch through the [place] of [place]. Post-contrast 4.5 mm thick sections then re-acquired from the foramen magnum to the vertex. 3-dimensional pacjcbf-lalqarqzp-wpqwxjkbyy (MIP) and/or volume rendering reformats were acquired of the central intracranial vasculature and neck separately. COMPARISON: [facility], MR, MR STROKE, 09/06/2020, 8:18. [facility], CT, CT HEAD/BRAIN WO CON, 09/05/2020, 22:16. [facility], MR, MR STROKE, 08/31/2020, 10:22. FINDINGS: Image quality: Excellent. BRAIN: CSF spaces: Ventricles are normal in size and shape. Basal cisterns are patent. No extra-axial fluid collections. Brain: Areas of low density can be seen, which are most striking within the right occipital lobe as well as within the right cerebellum. Additional more subtle areas of infarction are better seen within the nidhi. No definite superimposed hemorrhage is seen to suggest hemorrhagic transformation. No midline shift. No intracranial masses. Bryant-white matter interface appears intact. Skull and face: Calvarium and facial bones appear intact, without suspicious lesions. Orbits appear normal. Sinuses: Sinuses and mastoids are clear. HEAD CT ANGIOGRAPHY: Anterior circulation: Intracranial internal carotid arteries demonstrate atherosclerotic calcification and irregularity, with 50-60% narrowing seen on each side. The flow within the paired anterior cerebral arteries is normal and symmetric. The flow within the middle cerebral arteries is normal and symmetric. The anterior communicating artery is seen. No aneurysms are seen. Posterior circulation: The right vertebral artery is dominant to the left. The left vertebral artery largely terminates in the left posterior inferior cerebellar artery. There is decreased flow seen within the vertebral arteries and within the basilar artery, with high-grade stenosis (approximately 90%) seen within the right V4 segment. There is decreased flow seen throughout both posterior cerebral arteries systems. No aneurysms are seen. There is dense calcification seen of the right distal vertebral artery, as on series 5, image 5. NECK CT ANGIOGRAPHY: Carotid system: The great vessels demonstrate a conventional anatomy as they arise from the aortic arch. The origins of the common carotid arteries appear patent. The common carotid arteries demonstrate normal caliber and courses. The bifurcation regions demonstrate atherosclerotic calcification and irregularity. No hemodynamically significant stenosis is seen on the right. On the left, there is 70-80% stenosis seen involving the proximal internal carotid artery. Posterior circulation: There is approximately 50% narrowing seen involving the origin of the right vertebral artery. The origin of the left vertebral artery is not well seen and is likely stenotic. The right vertebral artery is dominant to the left. Soft tissues: Visualized neck soft tissues demonstrate no suspicious abnormalities. Bones: No suspicious bony lesions. Visualized cervical spine appears normally aligned. Age-appropriate bony degenerative changes are seen. IMPRESSION: Numerous areas of posterior infarction are seen, which are better demonstrated on the accompanying MRI examination. High-grade stenosis (approximately 90%) seen within the right V4 segment. 70-80% stenosis seen involving the left proximal internal carotid artery. There is poor flow seen within both posterior cerebral arteries, which is better demonstrated on the accompanying MR angiogram examination. Approximately 50% narrowing seen involving the right proximal internal carotid artery. The origin of the left vertebral artery is poorly seen and is believed to be stenotic, as previously demonstrated. The right vertebral artery is dominant to the left. Any quantitative measurements of stenosis were performed using NASCET criteria. Dictated by: Rohit Hunt M.D. on 09/06/2020 at 8:52 Approved by: Rohit Hunt M.D. on 09/06/2020 at 9:08
--- NOTE | 2020-09-06 08:51 | CM.DPNOTE ---
Faxed PT/OT/ST from last 48 hrs, and PN from last 24 hrs at Kavya's request. Fax Confirmation received. Marlyn Carlson CM Asst.
[2020-09-06] MEDS: SODIUM CHLORIDE 0.9% FLUSH 10 ML IV ×3 (10:24→21:51)
[2020-09-06] MEDS: TIMOLOL 0.5% OPHTH 1 EACH EYE-BOTH (10:24)
--- NOTE | 2020-09-06 11:46 | PT.IIE ---
Current Diagnoses Cerebral infarction, unspecified (08/31/20) Medical History (Last Updated 08/31/20 @ 03:43 [facility] Glaucoma History of coma History of heart attack History of stroke History of stroke Sleep apnea Physical Therapy Inpatient Re-Evaluation M1 PT/OT-IP Prior Functional Status Start: 08/31/20 08:41 Freq: NEEDED Status: Active Protocol: Document 09/06/20 11:46 AW (Rec: 09/06/20 12:17 AW [id number]) Medical Review Prior Functional Status Medical History Reviewed Yes Communication Independent Mobility and Gait Prior to 2 weeks did not use a device. Pt states has been using a SPC for the past 2 weeks. Activities of Daily Living and IADL's Pt states was completely independent with all ADl's, IADL's, and driving needs prior to the past 1-2 weeks. Social History Household Members none Living Arrangements Apartment/Condo Number of Floors (Floors) 3 or More Floors Number of Stairs To Enter/Railing? Pt lives in a 3rd floor condo in [facility]. Home Environment Standard Height Toilet,Walk in Shower,Tub/Shower,Elevator Home Equipment Straight Cane,Grab Bars Near Toilet,Grab Bars In Shower Employment Status Retired Additional Social History Comment Pt lives alone in [place] M2 PT-IP Current Condition Start: 08/31/20 08:41 Freq: NEEDED Status: Active Protocol: Document 09/06/20 11:46 AW (Rec: 09/06/20 12:17 AW [id number]) Physical Therapy Current Condition Current Condition Evaluation Date 08/31/20 Treatment Diagnosis acute CVA, evolving; difficulty in walking Onset Date 08/21/20 M3 PT-IP Subjective Start: 08/31/20 08:41 Freq: NEEDED Status: Active Protocol: Document 09/06/20 11:46 AW (Rec: 09/06/20 12:17 AW [id number]) Subjective Physical Therapy Visit Type Type Re-Evaluation Visit Start Time 11:25 Visit Stop Time 11:46 Total Visit Minutes 21 Notes Pt was ambulatory yesterday, using FWW CGA to min assist. Repeat MRI shows evolving right posterior occlusion and cerebellar infarcts. Co- treated today with OT due to anticipated level of assist required. Number of STONE [employer]TER [employer] FRAMES Visits 0 Physical Therapy Visit Comments Patient Comments Pt is able to state his name and attempts to state that he is in the hospital but is otherwise unable to verbalize. Therapy Pain Assessment Pain When Pain Assessed During Mobility Pain Present Pain Present Unable to Respond FLACC Pain Scale Face No particular expression Legs Normal position; relaxed Activity Quiet, moves easily Cry No cry (awake or asleep) Consolability Reassurable with touch FLACC Total 1 M4 PT-IP Mobility and Gait Start: 08/31/20 08:41 Freq: NEEDED Status: Active Protocol: Document 09/06/20 11:46 AW (Rec: 09/06/20 12:17 AW [id number]) PT-Bed Mobility Assessment Rolling Type of Rolling Bilateral Level of Assist Maximal Assistance,2 Person Assistance Supine to Sit Supine to Sit Maximum Assistance,2 Person Assistance Sit to Supine Sit to Supine Maximum Assistance,Total Assistance,2 Person Assistance Scooting Scooting to Edge of Bed Dependent PT-Transfer Assessment Sit to and From Stand Sit to and from Stand Maximum Assistance,2 Person Assistance,Use of Upper Extremities Equipment Transfer Assistive Device Gait Belt,Front Wheeled Walker Orthotic/Prosthetic Devices or Brace: No Comments Mobility Comments AUTOCLAVE OPERATOR was with pt for bed change as PT and OT arrived. He responded to commands and attempted to initiate all movements, needing max assist x 2 ultimately to roll side to side. Pt was similarly able to initiate movement of B LE toward right EOB but ultimately required max assist x 2 for supine to sit. In sitting, pt needed constant assist for balance as he tended to lean posteriorly and to the left. Pt stood from the bed max assist x 2 with tactile cues needed for knee and hip extension. Pt sat again on the bed. AUTOCLAVE OPERATOR prepared bed for quick change as pt stood one more time with same level of assist. He stood ~30 seconds max A x 2 before sitting again. PT and OT provided max to total assist x 2 for sit to supine. BP prior to activity was 122/76 HR 57. After activity, BP was 148/84 HR 48. Reported findings to RN and recommended juanito transfer. Gait Assessment Comments Gait Comments Pt unable at this time PT-Balance Assessment Sitting Balance and Reactions Static Sitting Balance Ability Poor Dynamic Sitting Balance Ability Poor Standing Balance and Reactions Static Standing Balance Ability Poor Dynamic Standing Balance Ability Poor Device Used FWW Comments Other Balance Tests/Deviations/Treatment Pt required constant assist : for sitting balance, unable to support himself. M5 PT-IP Objective Assessments Start: 08/31/20 08:41 Freq: NEEDED Status: Active Protocol: Document 09/06/20 11:46 AW (Rec: 09/06/20 12:17 AW [id number]) Orientation Orientation/Cognition Level of Alertness Lethargic Orientation Name,Place Language Function Ability Expressive Aphasia Safety Awareness Decreased Safety Awareness Comments Pt able to softly speak his name and to attempt to say hospital in response to query . Gross Range of Motion Upper Extremity ROM Assessment Right Impaired Impairments unable to reach overhead on RUE Lower Extremity ROM Assessment Bilaterally Impaired Impairments L>R weakness Strength Upper Extremity Strength Assessment Right Impaired Lower Extremity Strength Assessment Bilaterally Impaired Hip 3-/5 Knee 3-/5 Ankle 3-/5 Coordination Assessment Assessment Coordination Comments Unable to assess Sensation Assessment Comments Sensation Comments Difficult to assess due to speech impairment Muscle Tone Muscle Tone WNL No Muscle Tone Location Left Upper Extremity Type of Tone Hypertonicity,Rigidity Severity of Tone Mild,Moderate Comments Muscle Tone Comments Modified Vijay scale 1+ ( catch + min resistance through remaining ROM) M6 PT-IP Treatment Start: 08/31/20 08:41 Freq: NEEDED Status: Active Protocol: Document 09/06/20 11:46 AW (Rec: 09/06/20 12:17 AW [id number]) Physical Therapy Treatment Education Education Provided Safety M7 PT-IP Assessment and Plan Start: 08/31/20 08:41 Freq: NEEDED Status: Active Protocol: Document 09/06/20 11:46 AW (Rec: 09/06/20 12:17 AW [id number]) PT Summary Assessment and Plan Potential Rehabilitation Potential Good Status of Condition at Evaluation Evolving Summary Impairments ROM,Strength,Balance, Coordination,Sensation,Tone, Cognition,Bed Mobility, Transfers,Gait,Activity Tolerance Assessment Summary Re-evaluation this date due to evolving posterior circulation CVA, right cerebellar infarcts noted on repeat MRI. Pt is now requiring max assist x 2 for bed mobility and sit to stand. Transfer not attempted today. Pt will likely require SNF rehab. Goals updated this date . Goals Bed Mobility Goal Minimal Assistance Transfer Goal Moderate Assistance,Front Wheeled Walker Gait Goal Moderate Assistance,Front Wheel Walker Gait Distance 25 Days to Meet Goals 10 Frequency of Treatment Frequency Of Treatment Once a Day Treatment Plan Physical Therapy Treatment Plan Bed Mobility Training,Transfer Training,Gait Training, Therapeutic Exercise,Balance Retraining,Discharge Planning, Hot or Cold Pack,Neuromuscular Re-ed,Coordination Retraining Other Recommendations and Next Treatment bed mobility, transfers, Focus balance Recommendations To Nursing Amount of Assist Needed Mechanical Lift Discharge Recommendations PT Discharge Recommendations SNF vs Acute Rehab Transportation Needs at Discharge Wheelchair/Cabulance,Stretcher /Ambulance
--- NOTE | 2020-09-06 11:48 | OT.IPRE ---
Current Diagnoses Cerebral infarction, unspecified (08/31/20) Past Medical History (Last Updated 08/31/20 @ 03:43 [facility] Glaucoma History of appendectomy History of coma History of heart attack History of mandibular surgery History of shoulder surgery History of stroke History of stroke Sleep apnea Surgical History ([facility]31[facility]20 @ 03[facility]43 [facility] History of appendectomy History of mandibular surgery History of shoulder surgery Occupational Therapy Inpatient Evaluation/Re-Eval M1 PT/OT-IP Prior Functional Status Start: 08/31/20 08:41 Freq: NEEDED Status: Active Protocol: Document 09/06/20 12:42 [facility] (Rec: 09/06/20 13:00 [facility] [id number]) Medical Review Prior Functional Status Medical History Reviewed Yes Communication Independent Mobility and Gait Prior to 2 weeks did not use a device. Pt states has been using a SPC for the past 2 weeks. Activities of Daily Living and IADL's Pt states was completely independent with all ADl's, IADL's, and driving needs prior to the past 1-2 weeks. Social History Household Members none Living Arrangements Apartment/Condo Number of Floors (Floors) 3 or More Floors Number of Stairs To Enter/Railing? Pt lives in a 3rd floor condo in [facility]. Home Environment Standard Height Toilet,Walk in Shower,Tub/Shower,Elevator Home Equipment Straight Cane,Grab Bars Near Toilet,Grab Bars In Shower Employment Status Retired Additional Social History Comment Pt lives alone in [place] M2 OT-IP Current Condition Start: 08/31/20 15:04 Freq: Status: Active Protocol: Document 09/06/20 12:42 [facility] (Rec: 09/06/20 13:00 [facility] [id number]) Occupational Therapy Current Condition Current Condition Evaluation Date 09/06/20 Treatment Diagnosis Evolving CVA, decreased mobility Diagnosis Onset Date 09/06/20 M3 OT- IP Subjective and Pain Start: 08/31/20 15:04 Freq: Status: Active Protocol: Document 09/06/20 12:42 [facility] (Rec: 09/06/20 13:00 [facility] [id number]) OT- Subjective Occupational Therapy Visit Type Type Re-Evaluation Visit Start Time 11:28 Visit Stop Time 11:48 Total Visit Minutes 20 Notes Cotxt with Pt with anticipation of decline in function. Occupational Therapy Visit Comments Patient Comments Pt just able to say his name and mouth the words, hos when asking if he knew where he was. Patient/Caregiver Goals Not able to ask at this time. M4 OT- IP ADL's Start: 08/31/20 15:04 Freq: Status: Active Protocol: Document 09/06/20 12:42 [facility] (Rec: 09/06/20 13:00 [facility] [id number]) OT ADL-Grooming Comments OT Grooming Comments Not performed OT ADL-Oral Care Comments Oral Care Comments Not performed OT ADL-Dressing General Eval Lower Body Dressing Ability Maximum Assistance Areas Needing Assistance Underpants/Brief,Socks Comments OT Dressing Comments MAX A x2 at this time to assist to gracie brief in bed. Pt trying to assist by bridging his hip up. OT ADL-Toileting Comments OT Toileting Comments Dependent of brief change and hygiene at this time. OT ADL-Bathing Comments OT Bathing Comments Not performed M5 OT- IP IADL's Start: 08/31/20 15:04 Freq: Status: Active Protocol: Document 09/06/20 12:42 [facility] (Rec: 09/06/20 13:00 [facility] [id number]) OT-Instrumental Activities of Daily Living Home Safety Awareness Home Safety Comments Pt having difficulty to get his words out therefore to continue to assess pt for IADl and safety needs. M6 OT- IP Functional Cognition Start: 08/31/20 15:04 Freq: Status: Active Protocol: Document 09/06/20 12:42 [facility] (Rec: 09/06/20 13:00 [facility] [id number]) Cognitive Factors Limiting Selfcare Function Cognitive Ability Level of Alertness Alert Patient Orientation Name Attention Span Ability Capable of Focused Attention Ability to Follow Commands Able to Follow One Step Commands with Increased Time, Able to Follow One Step Commands with Repetition Cognitive Comments Cognitive Assessment Comments Pt very drowsy, but able to follow simple commands and at times needing vc, and hand over hand cues for placement when pt trying to assist with bed mobility needs during brief change. OT- Vision and Hearing OT- Vision Assessment Vision Assessment Comments NOt able to fully assess as pt hard to arouse. M7 OT- IP Mobility and Balance Start: 08/31/20 15:04 Freq: Status: Active Protocol: Document 09/06/20 12:42 [facility] (Rec: 09/06/20 13:00 [facility] [id number]) OT- Bed Mobility Assessment Supine to Sit Supine to Sit Assist Maximum Assistance,2 Person Assistance Sit to Supine Sit to Supine Assist Maximum Assistance,2 Person Assistance Scooting Scooting to Edge of Bed Maximum Assistance,2 Person Assistance OT-Transfer Assessment Sit to and From Stand Sit to and from Stand Maximum Assistance,2 Person Assistance Comments Mobility Comments Pt MAX A X2 from supine to sit and trying to assist by helping to lift his feet up and over a little in bed Assist to get his trunk upright and to scoot to the edge of the bed MAX A X2. MAX A X2 to stand to FWW, assist to help get left hand on the FWW and assist to hold in place. Pt not able to stand all the way up. OT- Gait Assessment Comments Gait Ability Comments Not at this time. OT- Balance Assessment Sitting Balance and Reactions Static Sitting Balance Ability Poor Dynamic Sitting Balance Ability Poor Standing Balance and Reactions Static Standing Balance Ability Poor M8 OT- IP Objective Assessments Start: 08/31/20 15:04 Freq: Status: Active Protocol: Document 09/06/20 12:42 [facility] (Rec: 09/06/20 13:00 [facility] [id number]) OT Gross Range of Motion Upper Extremity Range of Motion ROM Impairments NOt able to formally assess today. Pt having difficulty to follow directions. OT Strength Comments Strength Comments BUE at least 3-/5. OT-Muscle Tone Assessment Muscle Tone WNL No Muscle Tone Location Left Upper Extremity Type of Tone Hypertonicity Severity of Tone Mild,Moderate Vijay Grade Scale Grade 1+ M9 OT- IP Assessment and Plan Start: 08/31/20 15:04 Freq: Status: Active Protocol: Document 09/06/20 12:42 [facility] (Rec: 09/06/20 13:00 [facility] [id number]) OT Summary Assessment and Plan Potential Rehabilitation Potential Good Analytic Complexity at Evaluation Moderate Summary OT Impairments Strength,Balance,Functional Cognition,Functional Mobility, Self-Feeding,Grooming,Dressing ,Toileting,Bathing,Toilet Transfers,Shower Transfers, Activity Tolerance Progress Towards Goals Slow Progress due to Medical Issues,Slow Progress due to Activity Tolerance Assessment Summary Pt now with evolving CVA and needing extensive assist x2 for bed mobility needs. Pt would benefit from skilled rehab versus acute rehab pending his medical progress and functional. Goals Self-Feeding Goal Independent Grooming Goal Independent Dressing Goal Independent Toileting Goal Independent Bathing Goal Independent Toilet Transfer Goal Independent Shower Transfer Goal Independent Days to Meet Goals 50 Frequency of Treatment Frequency Of Treatment Once a Day Treatment Plan OT Treatment Plan ADL Training,Functional Cognition Training,Functional Mobility,Therapeutic Exercises ,Vision Retraining,Patient/ Family Education,Discharge Planning Other Treatment Recommendations and Next Transfer with fww MAX Ax2 to Treatment Focus C. Discharge Recommendations OT Discharge Recommendations SNF vs Acute Rehab Transportation Needs at Discharge Wheelchair/Cabulance
[2020-09-06] MEDS: SODIUM CHLORIDE 0.9% 1,000 ML 100 ML IV (12:28)
[2020-09-06] MEDS: ASPIRIN 300 MG SUPP PR (12:28)
--- NOTE | 2020-09-06 13:05 | ST.IPCSEOM ---
Current Diagnoses Cerebral infarction, unspecified (08/31/20) Past Medical History (Last Updated 08/31/20 @ 03:43 by [facility] Glaucoma (Medical) History of appendectomy (Medical) History of coma (Medical) History of heart attack (Medical) History of mandibular surgery (Medical) History of shoulder surgery (Medical) History of stroke (Medical) History of stroke (Medical) Sleep apnea (Medical) Speech-Language Pathology Swallow Evaluation [employer] WR[employer] RUNNER Clinical Instructor Line Start: 08/31/20 16:53 Freq: Status: Active Protocol: Document 08/31/20 17:17 ML (Rec: 08/31/20 17:17 ML [id number]) Clinical Instructor Signature Clinical Instructor Clinical Instructor Yes [employer] WR[employer] RUNNER Clinical Swallow Evaluation Start: 08/31/20 12:04 Freq: Status: Active Protocol: Document 09/06/20 15:54 TLC (Rec: 09/06/20 16:18 TLC [id number]) Clinical Swallow Evaluation Session Time Visit Start Time 12:35 Visit Stop Time 13:05 Total Visit Minutes 30 Setting Assessment Location Acute Care Visit Type Note Type Re-evaluation Next Note Type Next Note Type Treatment Note Patient Information Identification Type Name History Patient had change of status overnight and is being seen for a re-evaluation. Previous notes state patient had mild dysarthria, but was otherwise able to communicate effectively. Notes from OT/PT this AM report patient was unable to vocalize with the exception of his name and attempting to say hospital. Subjective Observations Patient was found lying in bed with his eyes closed. He awoke to my voice and nodded in agreement of eating. Reported by Patient Current Diet Dysphagia advanced,Thin liquids,Kerby thick liquids Baseline Feeding Method Independent in self-feeding Objective Assessment Mental Status Cooperative,Lethargic Oral Integrity Xerostomia/Dry mouth Dentition Within normal limits Lip Function Severe impairment Observation of Lips at Rest Symmetrical Tongue Function Severe impairment Tongue Protrusion Reduced range of motion, Reduced strength Tongue Lateralization Reduced range of motion, Reduced strength Jaw Function Moderate impairment Respiratory Sufficiency Within normal limits Comment Patient was nearly aphonic with little to no phonation during the session. Food and Liquid Trials Position During Assessment Slightly reclined,In bed Liquids Trialed Ice chips,Kerby Solids Trialed Puree Administration Type Tea spoon,Needs some assistance Oral Impairment Moderately impaired Oral Phase Comments Patient was able to open and close his jaw to accept bolus from teaspoon. He exhibited extended holding (up to 20 seconds) of bolus despite multiple prompts to swallow. Specific cueing to move his tongue and push food around in his mouth appeared most successful at initiating swallow. No oral residue was observed with small teaspoon amounts of liquid and solids. No advanced textures were trialed due to severity of oral impairments. Pharyngeal Phase Comments Hyolaryngeal elevation was present on palpation. Patient was not able to swallow ice chips, but was more successful with nectar thick liquids (NTL ). Per previous KENO WRITER / RUNNER notes, patient sometimes preferred NTL over thin. No coughing, choking, throat clearing or other pharyngeal signs of dysphagia were observed with trials; however, I am unable to rule out aspiration at bedside. Patient is likely not a good candidate for MBSS at this time; however, this may be considered in the future if he can participate from a physical standpoint.I suspect some degree of pharyngeal dysphagia given his significant oral impairments; therefore, recommend strict aspiration precautions. I discussed with nursing the importance of oral care and consideration for setting up a suction to use during oral care with toothbrush and toothpaste since patient will likely not be able to spit. Fatigue/Endurance Moderate fatigue Results I provided the patient with medical communication board due to the severity of his expressive language impairments. With his reading glasses on, he was able to point to pictures named, and was able to spell his name and point to the correct month of the year on the board. His ability to follow simple directions and answer questions appropriately indicate relatively intact receptive language skills. His expressive communication is characterized by severe dysarthria affecting phonation and articulation. Further cognitive linguistic testing is recommended. Findings Swallowing Function Oropharyngeal phase dysphagia Severity of Swallow Impairment Moderately impaired Contributing Factors to Swallow Reduced oral strength/ Impairment coordination/sensation, Mastication inefficiency, Delayed swallow initiation Prognosis Good Based on Cognitive status Impact on Safety and Functioning Risk for aspiration Recommendations Instrumental Assessment No Swallowing Treatment Yes Recommended Solids Puree Recommended Liquids Kerby Other Recommendations liquids and solids via teaspoon Safety Precautions/Swallowing Feed only when alert,Needs Recommendations verbal cues to use recommended strategies,Small bites and sips when eating,1 to 1 feeding assistance,Strict oral care after intake,Check for pocketing Medication Recommendations As Tolerated Discharge Recommendations [facility] facility, Inpatient rehab facility Education Patient/Caregiver Education Described results of evaluation,Patient expressed understanding of evaluation, Patient expressed agreement with goals & treatment plans Goals Short-term Goals Moustapha will decrease delayed swallow initiation by producing a swallow response within 10 seconds of presentation of NTL or puree bolus via teaspoon. Moustapha will phonate and maintain voice in order to produce intelligible monosyllabic words for communicating his wants/needs in the healthcare setting.
--- NOTE | 2020-09-06 14:26 | CM.DPC ---
DCP: continued: case received again, EMR for last few days reviewed and discussed in Team Rounds. Dr. Odonnell noted that pt had a change in condition overnight, was now very far from his abilities of yesterday and work up for same in process. A d/c was no longer appropriate. Checked in on pt and discussed with Lisa Jeter. Asked if the physician had called his POA and was told they were looking for who this might be. Alerted her to this information provided in the DCplanning notes with Cuco Mercedes as the DPOA: [phone] or [phone]. She has updated Dr. Odonnell. Spoke also with [facility] INPT rehab to update her on pt's change of condition and evolving CVA. She said she had just received the update from [employer], the expedited appeal had resulted in overturning of the denial and pt would be accepted to the INPT facility as long as the d/c was by Sat. 09/10. If not more info would be needed. The updated PT/OT notes are faxed to her now. No note is yet available from Dr. Knapp but it is unclear at this time what outcome of pt's declining condition will lead to in terms of POC going forward. DCP team will be following.
[2020-09-06 17:33] LABS: BUN Creatinine Ratio 19.8 (6-22); Blood Urea Nitrogen 21 mg/dL (9-20); Calcium 9.3 mg/dL (8.4-10.2); Carbon Dioxide 27 mmol/L (22-32); Chloride 104 mmol/L (98-107); Estimated Glomerular Filt Rate > 60.0 mL/min (>60); Glucose 112 mg/dL (80-110); HEMOLYSIS 20 (0-50); Potassium 4.5 mmol/L (3.4-5.1); Sodium 136 mmol/L (137-145)
[2020-09-06 17:53] LABS: Hematocrit 45.5 % (41-53); Mean Corpuscular HGB Conc 35.2 % (30-36); Mean Corpuscular Hemoglobin 35.8 PG (26-34); Mean Corpuscular Volume 101.7 fL (80-100); Platelet Count 186 X10^3/uL (150-400); Red Blood Cell Count 4.47 X10^6/uL (4.5-5.9); Red Cell Distribution Width 12.7 % (11.6-14.8); White Blood Cell Count 10.6 X10^3/uL (4.5-11.0)
--- NOTE | 2020-09-06 18:17 | PM.PN.1 ---
Subjective Subjective Interval history: Yesterday patient deteriorated from a neurologic standpoint with worsening mentation, slurred speech, and worsening weakness. Repeat CT head showed evolution of stroke. Repeat brain MRI showed worsening multifocal stroke, especially worsened in right thalamus. Exam Vital Signs (past 8 hours): - 09/06/20 10:24 09/06/20 11:00 09/06/20 15:00 Temperature 96.3 F L Pulse Rate 56 L 60 Respiratory Rate 16 16 Blood Pressure 118/61 Pulse Oximetry 93 95 97 09/06/20 15:30 Temperature 97.7 F Pulse Rate 55 L Respiratory Rate 16 Blood Pressure 124/66 Pulse Oximetry 97 Oxygen Delivery Method Room Air Oxygen Flow Rate 0 Narrative Exam Narrative: GEN: lethargic, unable to assess orientation as he has difficulty speaking, he is following commands CV: regular rate and rhythm without murmur PULM: clear to auscultation bilaterally EXT:have no ankle edema NEURO: upper extremity strength 4/5 bilaterally, upgoing babinski, bilateral weak lower extremities with right greater than left, speech slurred and unintelligible Objective Labs Result Diagrams: 09/06/20 17:04 09/06/20 17:04 Labs: Laboratory Results - last 24 hr 09/05/20 09/06/20 09/06/20 19:02 17:04 17:04 WBC 10.6 RBC 4.47 L Hgb 16.0 Hct 45.5 MCV 101.7 H MCH 35.8 H MCHC 35.2 RDW 12.7 Plt Count 186 Sodium 136 L Potassium 4.5 Chloride 104 Carbon Dioxide 27 BUN 21 H Creatinine 1.06 Estimated GFR > 60.0 BUN/Creatinine Ratio 19.8 Glucose 112 H Calcium 9.3 Urine Color Yellow Urine Appearance Clear Urine pH 5.5 Ur Specific [place] 1.015 Urine Protein Negative Urine Glucose (UA) Negative Urine Ketones Negative Urine Occult Blood Trace-lysed Urine Nitrate Negative Urine Bilirubin Negative Urine Urobilinogen 0.2 Ur Leukocyte Esterase Negative Urine RBC 0-1/hpf Urine WBC 0-1/hpf Ur Squamous Epith Cells 0-1 /hpf Urine Bacteria None seen Ur Culture Indicated? Cult not indicated [facility] Medical History (Updated 08/31/20 @ 03:43 by SHIV Mosher) Glaucoma History of coma History of heart attack History of stroke History of stroke Sleep apnea Surgical History (Updated 08/31/20 @ 03:43 by Mara Troy [facility]) History of appendectomy History of mandibular surgery History of shoulder surgery Family History (Updated 08/31/20 @ 03:45 by DIANE Mosher) Father Pulmonary embolism Heart disease Mother No problems noted. Social History household members: none Smoking Status: Former smoker alcohol intake: current Assessment & Plan Assessment & Plan narrative: 1. 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, present on admission -worsened acutely on 09/05 -repeat imaging showed worsening stroke especially in right thalamic region -initial MRI showed multifocal areas of acute ischemia most notably involving the right posterior temporal occipital lobe, in addition to bilateral cerebellar lesions and thalami -CTA showed significant stenosis in right V4, 70-80% in L proximal ICA, poor flow in both [employer] S[employer] SERV[employer], left vertebral artery poor visualized likely due to stenosis -discussed with neurology at [place], patient also with stenosis of basilar artery, they are concerned embolizing from there -recommended no anticoagulation, dual antiplatelet if able, consider transfer if aggressive treatment wanted -discussed with POA who will come see patient, but belives he would not want feeding tube or trach -currently NPO after worsening of stroke -patient presented with weakness and aphasia, 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 -echo showed normal LV, LVEF 60-65%, normal RV, mild TR -patient developed an episode of AFib with RVR, given the areas of multiple infarcts this leads to a probable embolic source. -blood pressure elevated on admit and has drifted down and been mainly in normal range, not requiring antihypertensive -continue PT/OT/speech therapy -may need hospice referral 2. Paroxysmal atrial fibrillation with rapid ventricular response, new diagnosis, RVR resolved and now in sinus rhythm. -TTE unremarkable, -started on apixaban 5 mg b.i.d, now stopped -diltiazem discontinued due to dizziness and bradycardia -telemetry currently showing sinus rhythm 3. 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 4. Orthostatic hypotension, resolved -patient became dizzy while working with therapy, noted to have orthostatic drops in blood pressure, was not taking much oral fluids -encourage p.o. fluid intake Patient has had significant stroke, has limited goals of care and is no code, per POA would not want feeding tube or trach. May need hospice referral
[2020-09-06] MEDS: SENNOSIDES 8.6 MG TABLET 17.2 MG PO (21:36)
[2020-09-06] MEDS: ATORVASTATIN 20 MG TABLET 80 MG PO (21:36)
[2020-09-06] MEDS: LATANOPROST 0.005% EYE DROPS 1 EACH EYE-BOTH (21:46)
[2020-09-07] VITALS (11 sets, daily range): BP systolic 118–139; BP diastolic 65–72; PULSE 48–95; RESP 12–22; TEMP 35.5–36.8; O2SAT 92–96
[2020-09-07 06:32] LABS: Hematocrit 43.4 % (41-53); Hemoglobin 15.4 g/dL (13.5-17.5); Mean Corpuscular HGB Conc 35.4 % (30-36); Mean Corpuscular Hemoglobin 36.2 PG (26-34); Mean Corpuscular Volume 102.2 fL (80-100); Platelet Count 167 X10^3/uL (150-400); Red Blood Cell Count 4.25 X10^6/uL (4.5-5.9); Red Cell Distribution Width 12.5 % (11.6-14.8); White Blood Cell Count 10.4 X10^3/uL (4.5-11.0)
[2020-09-07 06:43] LABS: BUN Creatinine Ratio 19.2 (6-22); Blood Urea Nitrogen 19 mg/dL (9-20); Carbon Dioxide 25 mmol/L (22-32); Chloride 106 mmol/L (98-107); Estimated Glomerular Filt Rate > 60.0 mL/min (>60); Glucose 98 mg/dL (80-110); Potassium 4.1 mmol/L (3.4-5.1); Sodium 137 mmol/L (137-145)
[2020-09-07 06:44] LABS: HEMOLYSIS 54 (0-50)
[2020-09-07] MEDS: SODIUM CHLORIDE 0.9% 1,000 ML 100 ML IV (09:28)
[2020-09-07] MEDS: TIMOLOL 0.5% OPHTH 1 EACH EYE-BOTH (09:31)
[2020-09-07] MEDS: CLOPIDOGREL 75 MG TABLET PO (09:31)
[2020-09-07] MEDS: ASPIRIN EC 81 MG TABLET PO (09:31)
--- NOTE | 2020-09-07 11:13 | OT.IP.TRT ---
Current Diagnoses Cerebral infarction, unspecified (08/31/20) Occupational Therapy Treatment Note M2 OT-IP Current Condition Start: 08/31/20 15:04 Freq: Status: Active Protocol: Document 09/06/20 12:42 [facility] (Rec: 09/06/20 13:00 [facility] [id number]) Occupational Therapy Current Condition Current Condition Evaluation Date 09/06/20 Treatment Diagnosis Evolving CVA, decreased mobility Diagnosis Onset Date 09/06/20 M3 OT- IP Subjective and Pain Start: 08/31/20 15:04 Freq: Status: Active Protocol: Document 09/07/20 12:05 [facility] (Rec: 09/07/20 12:16 [facility] [id number]) OT- Subjective Occupational Therapy Visit Type Type Treatment Note Visit Start Time 10:56 Visit Stop Time 11:13 Total Visit Minutes 17 Occupational Therapy Visit Comments Patient Comments PT with nursing aid in the room assisting pt to be changed when OT came in to assist and see pt. Patient/Caregiver Goals Not able to ask at this time. M4 OT- IP ADL's Start: 08/31/20 15:04 Freq: Status: Active Protocol: Document 09/07/20 12:05 [facility] (Rec: 09/07/20 12:16 [facility] [id number]) OT [id number] Comments OT Self-Feeding Comments Not meal time OT ADL-Grooming Comments OT Grooming Comments Not performed OT ADL-Oral Care Comments Oral Care Comments Not performed OT ADL-Dressing General Eval Lower Body Dressing Ability Maximum Assistance Areas Needing Assistance Underpants/Brief,Socks Comments OT Dressing Comments MAX A x 2 to gracie brief and assist to help pt roll side to side. Pt able to assist to bridge when able to help stabilize his legs while supine in bed. OT ADL-Toileting Comments OT Toileting Comments Dependent of brief change and hygiene at this time. OT ADL-Bathing Comments OT Bathing Comments Not performed M5 OT- IP IADL's Start: 08/31/20 15:04 Freq: Status: Active Protocol: Document 09/06/20 12:42 [facility] (Rec: 09/06/20 13:00 [facility] [id number]) OT-Instrumental Activities of Daily Living Home Safety Awareness Home Safety Comments Pt having difficulty to get his words out therefore to continue to assess pt for IADl and safety needs. M6 OT- IP Functional Cognition Start: 06/30/21 15:04 Freq: Status: Active Protocol: Document 09/07/20 12:05 [facility] (Rec: 09/07/20 12:16 [facility] [id number]) Cognitive Factors Limiting Selfcare Function Cognitive Ability Level of Alertness Alert Patient Orientation Name Attention Span Ability Capable of Focused Attention Ability to Follow Commands Able to Follow One Step Commands with Increased Time, Able to Follow One Step Commands with Repetition Cognitive Comments Cognitive Assessment Comments Pt able to follow simple commands and having difficulty to say words, instead of yes , he was able to get out yeah. M7 OT- IP Mobility and Balance Start: 08/31/20 15:04 Freq: Status: Active Protocol: Document 09/07/20 12:05 [facility] (Rec: 09/07/20 12:16 [facility] [id number]) OT- Bed Mobility Assessment Supine to Sit Supine to Sit Assist Maximum Assistance,2 Person Assistance Sit to Supine Sit to Supine Assist Maximum Assistance,2 Person Assistance Scooting Scooting to Edge of Bed Maximum Assistance,2 Person Assistance OT-Transfer Assessment Sit to and From Stand Sit to and from Stand Maximum Assistance,2 Person Assistance Technique Transfer Destination Bed Comments Mobility Comments Pt MAX XA X2 from supine to sit heavy assist x2 to help get his trunk upright from side lying. Pt has strength in his arms but having difficulty to coordinate his movements when check isometrically. Pt able to stand with MAX A X2 to FWW and assist to hold left hand on the FWW and to also stabilize at his left arm at elbow and shoulder so able to bear weight to assist to stand with FWW in addition to assist from the PT. MAX X 2 while sitting on the edge the bed to block and help incorporate L arm to assist and block left LE and assist to help scoot to the head of the bed in addition to MAX A from PT. OT- Gait Assessment Comments Gait Ability Comments Not at this time. OT- Balance Assessment Sitting Balance and Reactions Static Sitting Balance Ability Poor Dynamic Sitting Balance Ability Poor Standing Balance and Reactions Static Standing Balance Ability Poor Comments Other Balance Tests/Deviations/Treatment Pt MAX AX1 for sitting : balance today . pt leaning more to the left and not able to help get himself to midline . Pt's more off balance with sitting today. Per nursing pt is more drowsy today. M8 OT- IP Objective Assessments Start: 08/31/20 15:04 Freq: Status: Active Protocol: Document 09/07/20 12:05 [facility] (Rec: 09/07/20 12:16 [facility] [id number]) OT Gross Range of Motion Upper Extremity Range of Motion ROM Impairments Pt able to more his BUE grossly WFL, and assist at end range for LUE. OT Strength Comments Strength Comments LUE 3-/5 to 4/5 form proximal to distal. M9 OT- IP Assessment and Plan Start: 08/31/20 15:04 Freq: Status: Active Protocol: Document 09/07/20 12:05 [facility] (Rec: 09/07/20 12:16 [facility] [id number]) OT Summary Assessment and Plan Potential Rehabilitation Potential Good Analytic Complexity at Evaluation Moderate Summary OT Impairments Strength,Balance,Functional Cognition,Functional Mobility, Self-Feeding,Grooming,Dressing ,Toileting,Bathing,Toilet Transfers,Shower Transfers, Activity Tolerance Progress Towards Goals Progressing Toward Goals,Slow Progress due to Medical Issues ,Slow Progress due to Activity Tolerance Assessment Summary Pt cooperative during therapy session. Noted needing more assist for bed mobility and sitting balance needs today. Pt would benefit from skilled rehab versus acute rehab pending medical progress and activity tolerance needs. Goals Self-Feeding Goal Independent Grooming Goal Independent Dressing Goal Independent Toileting Goal Independent Bathing Goal Independent Toilet Transfer Goal Independent Shower Transfer Goal Independent Days to Meet Goals 50 Frequency of Treatment Frequency Of Treatment Once a Day Treatment Plan OT Treatment Plan ADL Training,Functional Cognition Training,Functional Mobility,Therapeutic Exercises ,Vision Retraining,Patient/ Family Education,Discharge Planning Other Treatment Recommendations and Next Transfer with fww MAX Ax2 to Treatment Focus BSC. Discharge Recommendations OT Discharge Recommendations SNF vs Acute Rehab Transportation Needs at Discharge Wheelchair/Cabulance
--- NOTE | 2020-09-07 11:15 | PT.IPTN ---
Current Diagnoses Cerebral infarction, unspecified (08/31/20) Physical Therapy Treatment Note M2 PT-IP Current Condition Start: 08/31/20 08:41 Freq: NEEDED Status: Active Protocol: Document 09/06/20 11:46 AW (Rec: 09/06/20 12:17 AW [id number]) Physical Therapy Current Condition Current Condition Evaluation Date 08/31/20 Treatment Diagnosis acute CVA, evolving; difficulty in walking Onset Date 08/21/20 M3 PT-IP Subjective Start: 08/31/20 08:41 Freq: NEEDED Status: Active Protocol: Document 09/07/20 11:13 [facility] (Rec: 09/07/20 11:20 [facility] [id number]) Subjective Physical Therapy Visit Type Type Treatment Note Visit Start Time 10:31 Visit Stop Time 11:09 Total Visit Minutes 38 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 Does shake his head yes and no Therapy Pain Assessment Pain Present Pain Present Unable to Respond M4 PT-IP Mobility and Gait Start: 08/31/20 08:41 Freq: NEEDED Status: Active Protocol: Document 09/07/20 11:13 [facility] (Rec: 09/07/20 11:20 [facility] [id number]) PT-Bed Mobility Assessment Rolling Type of Rolling Bilateral Level of Assist Maximal Assistance,1 Person Assistance Supine to Sit Supine to Sit Maximum Assistance,2 Person Assistance Sit to Supine Sit to Supine Maximum Assistance,Total Assistance,2 Person Assistance Scooting Scooting to Edge of Bed Maximum Assistance Scooting Up and Down in Bed Dependent PT-Transfer Assessment Sit to and From Stand Sit to and from Stand Maximum Assistance,2 Person Assistance,Use of Upper Extremities Equipment Transfer Assistive Device Gait Belt,Front Wheeled Walker Orthotic/Prosthetic Devices or Brace: No Comments Mobility Comments supine to sit first tiem w/HOB elevated and pt able to do w/ max A x1 w/max cueing for sequencing LEs and using hands to push and pull. He sat EOB and with mod A to max A only. He sat EOB for 10 min with max cuing for lifting head and and trunk w/mod to max A then he attempted w/wash cloth to wipe face but had to flex fwd w/trunk and flex elbows to try to get cloth to face. He did sit to supine w/max Ax1 and scooted up in bed w/max Ax2 w/ draw sheet. Found that pt was wet so rolled to try to changeand pt rolled both directions w/max A and max cues but is helping to reach to roll w/cueing for reaching & truning head. 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 max Ax2 for log roll to sit up from flat bed. Max A to scoot EOB and mod to max A to sit EOB w/max cueing to look up. max A x2 to FWW to partially stand for EXPEDITIONARY FIGHTING VEHICLE CREWMAN to change. W/draw sheet max Ax2 to scoot up bed. MAxx2 for sit to supine. Pt adjusted in bed and left with OT M5 PT-IP Objective Assessments Start: 08/31/20 08:41 Freq: NEEDED Status: Active Protocol: Document 09/06/20 11:46 AW (Rec: 09/06/20 12:17 AW [id number]) Orientation Orientation/Cognition Level of Alertness Lethargic Orientation Name,Place Language Function Ability Expressive Aphasia Safety Awareness Decreased Safety Awareness Comments Pt able to softly speak his name and to attempt to say hospital in response to query . Gross Range of Motion Upper Extremity ROM Assessment Right Impaired Impairments unable to reach overhead on RUE Lower Extremity ROM Assessment Bilaterally Impaired Impairments L>R weakness Strength Upper Extremity Strength Assessment Right Impaired Lower Extremity Strength Assessment Bilaterally Impaired Hip 3-/5 Knee 3-/5 Ankle 3-/5 Coordination Assessment Assessment Coordination Comments Unable to assess Sensation Assessment Comments Sensation Comments Difficult to assess due to speech impairment Muscle Tone Muscle Tone WNL No Muscle Tone Location Left Upper Extremity Type of Tone Hypertonicity,Rigidity Severity of Tone Mild,Moderate Comments Muscle Tone Comments Modified Vijay scale 1+ ( catch + min resistance through remaining ROM) M6 PT-IP Treatment Start: 08/31/20 08:41 Freq: NEEDED Status: Active Protocol: Document 09/06/20 11:46 AW (Rec: 09/06/20 12:17 AW [id number]) Physical Therapy Treatment Education Education Provided Safety M7 PT-IP Assessment and Plan Start: 08/31/20 08:41 Freq: NEEDED Status: Active Protocol: Document 09/07/20 11:13 [facility] (Rec: 09/07/20 11:20 [facility] [id number]) PT Summary Assessment and Plan Summary Progress Towards Goals Slow Progress due to Medical Issues Assessment Summary Pt does attempt to help w/ mobility but has significant difficulty and limitation re: how much he can move his extremities. Cueing needed for pt to look up and PT when sitting EOB to try to get in better posture. he required cueing to keep eyes open. He was only able to answer yesa and no questions today. He leans signficiantly mostly L when sitting and requires max cueing for position. Goals Bed Mobility Goal Minimal Assistance Transfer Goal Moderate Assistance,Front Wheeled Walker Gait Goal Moderate Assistance,Front Wheel Walker Gait Distance 25 Days to Meet Goals 10 Frequency of Treatment Frequency Of Treatment Once a Day Treatment Plan Physical Therapy Treatment Plan Bed Mobility Training,Transfer Training,Gait Training, Therapeutic Exercise,Balance Retraining,Discharge Planning, Hot or Cold Pack,Neuromuscular Re-ed,Coordination Retraining Other Recommendations and Next Treatment bed mobility, transfers, Focus balance Recommendations To Nursing Amount of Assist Needed Mechanical Lift Discharge Recommendations PT Discharge Recommendations SNF vs Acute Rehab Transportation Needs at Discharge Wheelchair/Cabulance,Stretcher /Ambulance
--- NOTE | 2020-09-07 14:38 | ST.IPTN ---
Visit Care Team Role Provider Type Eduardo Cuellar DO Emergency Provider Physician Address: [address] [place] [address], [id number] [facility] Phys[facility] Attending Provider Address: [address] [place] [address], [id number] CAREER SERVICES OFFICER Treatment Note CAREER SERVICES OFFICER Clinical Instructor Line Start: 08/31/20 16:53 Freq: Status: Active Protocol: Document 08/31/20 17:17 ML (Rec: 08/31/20 17:17 ML [id number]) Clinical Instructor Signature Clinical Instructor Clinical Instructor Yes CAREER SERVICES OFFICER Treatment Note Start: 09/01/20 12:24 Freq: Status: Active Protocol: Document 09/07/20 14:00 LNK (Rec: 09/07/20 14:38 LNK [id number]) Speech Pathology Treatment Note Session Time Visit Start Time 12:45 Visit Stop Time 13:20 Total Visit Minutes 35 Visit Information Visit Number 6 Setting Treatment Setting Acute Care Visit Type Note Type Treatment Note Next Note Type Next Note Type Treatment Note General Information General Information Patient is a 74-year-old male who presented today to the ED for a chief complaint of possible stroke/neuro deficit. 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 He states that approximately 10 days ago he felt a sensation the left side of his head that he described as ?popcorn popping ?shortly afterwards he started to have some slurring of his words which he states was new for him. He was also having some blurry vision. He is also having some weakness on his right side. Some of the symptoms have improved since the onset but none of them have completely resolved. He did have some deficits from his prior strokes but with time all those deficits have improved and he thinks what he is experiencing today are new . He has not tried anything for symptoms prior to arrival. He states the reason he came in today is because he talked with a friend who thought he should come in for evaluation. 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 Patient also has a history of heart attack, sleep apnea, and glaucoma. Patient reports he only takes aspirin daily. Upon admit to the floor patient complains of only continuing mild slurred speech and no other deficits at this time. Subjective Identification Type Name,ID Wristband Observations/Patient Presentation Pt unable to verbalize. Does shake his head yes and no Chief Complaint(s) Speech,Language Patient Knowledge/Awareness of CAREER SERVICES OFFICER Role Good in Treatment Objective Short Term Goals 1. Pt will continue to follow safe swallow strategies to reduce risk penetration and aspiration. 2. Pt will participate in cognitive communication therapy for deficits in word finding and developing strategies he can implement independently. 3. Pt will work on oral motor exercises to increase strength and ROM of his lips and tongue. Wheel Presser Goals Pt will demonstrate continual tolerance of least restrictive diet. Treatment Activities pt was up in bed with FELT HOOKER attempting to assist pt with his meal. Pt was having significant difficulty with swallowing presented bolus. He refused my attempt to remove the bolus indicating he wanted to swallow it. Nursing reported that they feel uncomfortable with assisting the pt with meals as they feel he is an aspiration risk. pt has indicated he is hungry. Pt is able to follow commands, indicate yes/no by shaking/ nodding head, using hand signals and pointing to the words Y/N appropriately. Pt is severely dysarthric and difficult to understand. Assessment Patient Response to Treatment Good Rehab Potential Good Impairments Identified Dysarthria,Memory - Short Term ,Speech Intelligibility Progress Towards Goals Good Progress Assessment of Overall Progress Improving Assessment of Improvement Pt appears to understand what is said to him. he was very fatigued today, which affects his attempts to communicate. for next session, ST will attempt to determine a strategy that may assist pr in getting adequate PO intake ( ie.e, temperature, head position, manner of bolus presentation, taste sour, sweet, etc. carbonation or not , etc.). Continue with POC Reviewed with Patient Goals,Progress Being Made,Home Exercise Program Patient/Caregiver Understanding Good Plan Comment daily during hospital stay Therapeutic Contents Cognitive-Linguistic Training, Intelligibility,Oral Motor Training Provided Patient/Caregiver Instruction Home Exercise Program,Plan of Care,Questions/Concerns Therapy Recommendations Continue with Current Program
--- NOTE | 2020-09-07 18:15 | PM.PN.1 ---
Subjective Subjective Date Patient Seen: 09/07/20 Time Patient Seen: 08:30 Interval history: There has been no significant improvement since yesterday. He is awake and alert and is understanding and following commands. However, he is almost unintelligible in terms of his speech. He has very poor swallowing ability and he has stated and has signed form that he does not want a PEG tube. He is not sure if he wants an NG tube. Exam Vital Signs (past 8 hours): - 09/07/20 13:00 09/07/20 13:55 09/07/20 16:00 Temperature 96.4 F L 98.3 F Pulse Rate 95 H 50 L Respiratory Rate 19 16 Blood Pressure 132/72 125/69 Pulse Oximetry 95 94 Oxygen Delivery Method Room Air Oxygen Flow Rate 0 Narrative Exam Narrative: GEN: he has difficulty speaking, he is following commands CV: regular rate and rhythm without murmur PULM: clear to auscultation bilaterally EXT:have no ankle edema NEURO: upper extremity strength 4/5 bilaterally, upgoing babinski, bilateral weak lower extremities with left greater than right, speech slurred and unintelligible Objective Labs Result Diagrams: 09/07/20 05:55 09/07/20 05:55 Labs: Laboratory Results - last 24 hr 09/07/20 09/07/20 05:55 05:55 WBC 10.4 RBC 4.25 L Hgb 15.4 Hct 43.4 MCV 102.2 H MCH 36.2 H MCHC 35.4 RDW 12.5 Plt Count 167 Sodium 137 Potassium 4.1 Chloride 106 Carbon Dioxide 25 BUN 19 Creatinine 0.99 Estimated GFR > 60.0 BUN/Creatinine Ratio 19.2 Glucose 98 Calcium 9.0 [facility] Medical History (Updated 08/31/20 @ 03:43 by DIANE Mosher) Glaucoma History of coma History of heart attack History of stroke History of stroke Sleep apnea Surgical History (Updated 08/31/20 @ 03:43 by DIANE Mosher) History of appendectomy History of mandibular surgery History of shoulder surgery Family History (Updated 08/31/20 @ 03:45 by DIANE Mosher) Father Pulmonary embolism Heart disease Mother No problems noted. Social History household members: none Smoking Status: Former smoker alcohol intake: current Assessment & Plan Assessment & Plan narrative: 1. 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, present on admission -worsened acutely on 09/05 -repeat imaging showed worsening stroke especially in right thalamic region -initial MRI showed multifocal areas of acute ischemia most notably involving the right posterior temporal occipital lobe, in addition to bilateral cerebellar lesions and thalami -CTA showed significant stenosis in right V4, 70-80% in L proximal ICA, poor flow in both CHIEF LIBRARIAN CIRCULATION DEPARTMENT, left vertebral artery poor visualized likely due to stenosis -discussed with neurology at [place], patient also with stenosis of basilar artery, they are concerned embolizing from there -recommended no anticoagulation, dual antiplatelet if able, consider transfer if aggressive treatment wanted -discussed with POA and patient who do agree that PEG tube is not within goals of care -currently NPO after worsening of stroke -patient presented with weakness and aphasia -echo showed normal LV, LVEF 60-65%, normal RV, mild TR -patient developed an episode of AFib with RVR, given the areas of multiple infarcts this leads to a probable embolic source. -blood pressure elevated on admit and has drifted down and been mainly in normal range, not requiring antihypertensive -continue PT/OT/speech therapy -may need hospice referral 2. Paroxysmal atrial fibrillation with rapid ventricular response, new diagnosis, RVR resolved and now in sinus rhythm. -TTE unremarkable, -started on apixaban 5 mg b.i.d, now stopped after worsening stroke -diltiazem discontinued due to dizziness and bradycardia -telemetry currently showing sinus rhythm 3. 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 4. Orthostatic hypotension, resolved -patient became dizzy while working with therapy, noted to have orthostatic drops in blood pressure, was not taking much oral fluids -encourage p.o. fluid intake Patient has had significant stroke, has limited goals of care and is no code, per POA would not want feeding tube or trach. May need hospice referral
[2020-09-07] MEDS: LATANOPROST 0.005% EYE DROPS 1 EACH EYE-BOTH (21:37)
[2020-09-08] VITALS (12 sets, daily range): BP systolic 119–146; BP diastolic 55–74; PULSE 50–62; RESP 12–18; TEMP 36.1–37; O2SAT 92–98
[2020-09-08 05:33] LABS: Hematocrit 42.3 % (41-53); Hemoglobin 14.8 g/dL (13.5-17.5); Mean Corpuscular Hemoglobin 35.2 PG (26-34); Mean Corpuscular Volume 100.6 fL (80-100); Platelet Count 173 X10^3/uL (150-400); Red Cell Distribution Width 12.4 % (11.6-14.8); White Blood Cell Count 14.7 X10^3/uL (4.5-11.0)
[2020-09-08 05:35] LABS: BUN Creatinine Ratio 19.8 (6-22); Blood Urea Nitrogen 18 mg/dL (9-20); Calcium 8.9 mg/dL (8.4-10.2); Carbon Dioxide 22 mmol/L (22-32); Chloride 106 mmol/L (98-107); Estimated Glomerular Filt Rate > 60.0 mL/min (>60); Glucose 82 mg/dL (80-110); HEMOLYSIS < 15 (0-50); Potassium 3.9 mmol/L (3.4-5.1); Sodium 136 mmol/L (137-145)
[2020-09-08] MEDS: SODIUM CHLORIDE 0.9% 1,000 ML 100 ML IV ×2 (06:03→16:03)
[2020-09-08] MEDS: TIMOLOL 0.5% OPHTH 1 EACH EYE-BOTH (10:07)
[2020-09-08] MEDS: ASPIRIN 300 MG SUPP PR (10:07)
--- NOTE | 2020-09-08 10:55 | CM.DPNOTE ---
Addendum entered by Marlyn Carlson 09/08/20 14:18: Fabiola called at 1415 asking for pt. ss# which was not on file, she said not to worry that she will submit the information she has to her billing dept. I also gave her ht & wt that she requested. She also needed nursing notes which I faxed; and lastly she needs a covid test on pt. before they take him. JESUS Mccoyt. Addendum entered by Marlyn Carlson 09/08/20 13:52: Fabiola from [facility] called and said she could start the [employer] author process. Yashira in turn said yes. JESUS Mccoyt. Addendum entered by Marlyn Carlson 09/08/20 11:42: Shawna called back at 1140 and will call Yashira in a little while because she had some questions. Fabiola from [facility] is reviewing this information ([id number]), and she will call back. Marlyn Carlson CM Asst. Original Note: Faxed SNF referral packet at Yashira's request to: CATHERINE, Shandra WHARTON [place], [facility]. Fax confirmations received. JESUS Mccoyt.
--- NOTE | 2020-09-08 11:18 | CM.DPNOTE ---
Addendum entered by Nicol Murphy, AIRCRAFT ENGINE INSTALLER 09/08/20 14:59: According to Lizeth DIRECTOR INDUSTRIAL MUSEUM, patient remains cognitively intact and is a good candidate for inpatient acute rehab, Patient has a swallow reflex that can be strengthened, per Lizeth. On NG tube now d/t not have eaten in days. placed call to Bre at [facility] Abraham Vasquez will be working the next few days. Bre requests a new clinical packet to look at to review needs. Asks about DCP from their facility? Meanwhile, [facility] and [facility] SNF are considering. Facility placement is likely dependent on clarification of intermediate designer care plan and securing auth through [employer] MIN Original Note: DCP Note According to conversation in multidisciplinary rounds- d/t patient's decline over the last few days, he will not tolerate acute inpatient rehab and efforts should be on securing a SNF. Dr Knapp explained patient wants rehab. Met w/patient to review DCP. Patient does not speak to this AIRCRAFT ENGINE INSTALLER, nods head yes and no only. Suggested senior living rehab and patient nodded yes. Reviewed all senior living facilities in and around [facility], patient nods yes to staying local ie [facility] as first choice but also nods head yes to this AIRCRAFT ENGINE INSTALLER attempting b/u options if [facility] does not have speech therapy services at this time. Updated JOSE Mccabe who is concerned about medical POC, states patient does not eat, sits w/food in his mouth. Spoke w/DIRECTOR INDUSTRIAL MUSEUM Lizeth who confers, states patient is cognitively intact and says he is hungry but cannot swallow. JOSE Mccabe notes advanced dirctives state no aritifical nutrition. Eating/nutrition requirements need to be clarified before patient is discharged to a senior living facility. Suggested to RN and DIRECTOR INDUSTRIAL MUSEUM that Dr Knapp be updated and a Palliative Care consult be requested. Meanwhile, Scott at [facility] states they only have an DIRECTOR INDUSTRIAL MUSEUM approx x1 weekly. RYANN Cline is assisting and has faxed to all SNFs in the region, see her updated notes. SUELLEN
--- NOTE | 2020-09-08 13:30 | OT.IP.TRT ---
Current Diagnoses Cerebral infarction, unspecified (08/31/20) Occupational Therapy Treatment Note M2 OT-IP Current Condition Start: 08/31/20 15:04 Freq: Status: Active Protocol: Document 09/06/20 12:42 [facility] (Rec: 09/06/20 13:00 [facility] [id number]) Occupational Therapy Current Condition Current Condition Evaluation Date 09/06/20 Treatment Diagnosis Evolving CVA, decreased mobility Diagnosis Onset Date 09/06/20 M3 OT- IP Subjective and Pain Start: 08/31/20 15:04 Freq: Status: Active Protocol: Document 09/08/20 13:38 [facility] (Rec: 09/08/20 14:14 [facility] [id number]) OT- Subjective Occupational Therapy Visit Type Type Treatment Note Visit Start Time 13:07 Visit Stop Time 13:38 Total Visit Minutes 31 Occupational Therapy Visit Comments Patient Comments Pt just finished working with PRECISION LENS GRINDER. CELL BIOLOGY SCIENTIST and OT cotxt due to pt needing extensive assist for all mobility needs. Pt able to nod his head yes when asked if wanting to try to get up for therapy. Patient/Caregiver Goals Not able to ask at this time. M4 OT- IP ADL's Start: 08/31/20 15:04 Freq: Status: Active Protocol: Document 09/08/20 13:38 [facility] (Rec: 09/08/20 14:14 [facility] [id number]) OT [id number] Comments OT Self-Feeding Comments Not meal time. Pt is 1:1 at this time. OT ADL-Dressing General Eval Upper Body Dressing Ability Maximum Assistance Lower Body Dressing Ability Total Assistance Comments OT Dressing Comments Total assist for brief change and MAX A for help change out his gown. Today pt trying to get bridge but needing more assist to help set his legs up and to stabilize his legs while supine in bed. OT ADL-Toileting Comments OT Toileting Comments Dependent of brief change and hygiene at this time. Pt not aware that he needed to be changed. OT ADL-Bathing Bathing Type Bathing Type Bed Bath General Evaluation Bathing Ability Total Assistance Comments OT Bathing Comments MAX-total assist at this time. Pt also needing assist to help lift his left arm up. M6 OT- IP Functional Cognition Start: 08/31/20 15:04 Freq: Status: Active Protocol: Document 09/08/20 13:38 [facility] (Rec: 09/08/20 14:14 [facility] [id number]) Cognitive Factors Limiting Selfcare Function Cognitive Ability Level of Alertness Alert Patient Orientation Name Attention Span Ability Capable of Focused Attention Ability to Follow Commands Able to Follow One Step Commands with Increased Time, Able to Follow One Step Commands with Repetition Cognitive Comments Cognitive Assessment Comments Pt today mainly just able to nod his head yes or point at the word for yes on communication sheet. Pt very sleepy and drowsy, however still able to follow simple commands. OT- Vision and Hearing OT- Vision Assessment Vision Assessment Comments NOt able to fully assess. M7 OT- IP Mobility and Balance Start: 08/31/20 15:04 Freq: Status: Active Protocol: Document 09/08/20 13:38 [facility] (Rec: 09/08/20 14:14 [facility] [id number]) OT- Bed Mobility Assessment Supine to Sit Supine to Sit Assist Total Assistance,2 Person Assistance,Head of Bed Elevated Sit to Supine Sit to Supine Assist Total Assistance,2 Person Assistance OT-Transfer Assessment Devices Transfer Assistive Devices Mechanical Lift Comments Mobility Comments Pt needing assist to help move his legs to the edge of the bed. Pt dependent get his trunk upright today. Pt not able to assist to sit to midline and dependent of therapist max/dependent to help hold him upright . Allen lift used to transfer to the recliner. Pillows positioned to prevent pt from leaning to the left. OT- Gait Assessment Comments Gait Ability Comments Not at this time. OT- Balance Assessment Sitting Balance and Reactions Static Sitting Balance Ability Poor Dynamic Sitting Balance Ability Poor Comments Other Balance Tests/Deviations/Treatment Pt not able to assist with : sitting balance today and no control to help use his trunk muscles to help maintain his balance. M8 OT- IP Objective Assessments Start: 08/31/20 15:04 Freq: Status: Active Protocol: Document 09/08/20 13:38 [facility] (Rec: 09/08/20 14:14 [facility] [id number]) OT-Muscle Tone Assessment Muscle Tone Location Left Upper Extremity Type of Tone Hypertonicity Severity of Tone Moderate Vijay Grade Scale Grade 2 OT Sensation Assessment Comments Summary Comments Decreased awareness of left arm as sitting on his hand and not aware and needing assist to position his left arm on a pillow. M9 OT- IP Assessment and Plan Start: 08/31/20 15:04 Freq: Status: Active Protocol: Document 09/08/20 13:38 [facility] (Rec: 09/08/20 14:14 [facility] [id number]) OT Summary Assessment and Plan Potential Rehabilitation Potential Fair Analytic Complexity at Evaluation Moderate Summary OT Impairments Strength,Balance,Functional Cognition,Functional Mobility, Self-Feeding,Grooming,Dressing ,Toileting,Bathing,Toilet Transfers,Shower Transfers, Activity Tolerance Progress Towards Goals Progressing Toward Goals,Slow Progress due to Medical Issues ,Slow Progress due to Activity Tolerance Assessment Summary Pt cooperative and needing more assist for bed mobility need and use of allen lift for transfer. Pt however just completed seeing PRECISION LENS GRINDER and may have been tired from previous session, however pt willing to try to get up. Noted today decreased sitting balance and increased tone in left UE. Pt more appropriate for skilled rehab versus acute rehab. Goals Self-Feeding Goal Independent Grooming Goal Independent Dressing Goal Independent Toileting Goal Independent Bathing Goal Independent Toilet Transfer Goal Independent Shower Transfer Goal Independent Days to Meet Goals 50 Frequency of Treatment Frequency Of Treatment Once a Day Treatment Plan OT Treatment Plan ADL Training,Functional Cognition Training,Functional Mobility,Therapeutic Exercises ,Vision Retraining,Patient/ Family Education,Discharge Planning Other Treatment Recommendations and Next Pt to be able to do grooming Treatment Focus needs with DONNY while seated in the recliner. Discharge Recommendations OT Discharge Recommendations SNF Rehab Transportation Needs at Discharge Wheelchair/Cabulance
--- NOTE | 2020-09-08 13:37 | PT.IPTN ---
Current Diagnoses Cerebral infarction, unspecified (08/31/20) Physical Therapy Treatment Note M2 PT-IP Current Condition Start: 08/31/20 08:41 Freq: NEEDED Status: Active Protocol: Document 09/06/20 11:46 [facility] (Rec: 09/06/20 12:17 [facility] [id number]) Physical Therapy Current Condition Current Condition Evaluation Date 08/31/20 Treatment Diagnosis acute CVA, evolving; difficulty in walking Onset Date 08/21/20 M3 PT-IP Subjective Start: 08/31/20 08:41 Freq: NEEDED Status: Active Protocol: Document 09/08/20 13:04 [facility] (Rec: 09/08/20 14:27 [facility] [id number]) Subjective Physical Therapy Visit Type Type Treatment Note Visit Start Time 13:04 Visit Stop Time 13:37 Total Visit Minutes 33 Notes Co-treat with OT Number of AUTOMATIC VULCANIZING LEAD OPERATOR Visits 1 Physical Therapy Visit Comments Patient Comments Pt able to point to YES with right hand when asked if he wanted to participate with therapy. Therapy Pain Assessment Pain When Pain Assessed During Mobility Pain Present Pain Present Unable to Respond M4 PT-IP Mobility and Gait Start: 08/31/20 08:41 Freq: NEEDED Status: Active Protocol: Document 09/08/20 13:04 [facility] (Rec: 09/08/20 14:27 [facility] [id number]) PT-Bed Mobility Assessment Rolling Type of Rolling Bilateral Level of Assist Maximal Assistance,2 Person Assistance Supine to Sit Supine to Sit Total Assistance,Head of Bed Elevated Sit to Supine Sit to Supine Total Assistance,2 Person Assistance,Head of Bed Elevated Scooting Scooting to Edge of Bed Dependent Scooting Up and Down in Bed Dependent PT-Transfer Assessment Comments Mobility Comments Pt able to point with right hand to YES on communication board. Pt HOB elevated and pt was able to indicate with right hand to raise bed higher and another sign to stop raising HOB up. Pt was unable to move legs to EOB and was dependent for supine from elevated bed to sitting. Once on side of bed pt was wet and required total assist to supine. SEASONAL DRIVER entered room and pt required total assist to LR bilaterally to remove sheets, gracie/doff gown and brief. Pt required assist with bending legs then pt was able to bridge slightly to adjust breif for proper positioning. Pt then required Total assist to sitting on EOB and Total assist for sitting balance while sling was placed under pt. Pt was transferred to chair, once in chair pillows were placed on each side to support arms and one behind his head. Pt left in room with SEASONAL DRIVER present. Gait Assessment Comments Gait Comments Pt unable at this time M5 PT-IP Objective Assessments Start: 08/31/20 08:41 Freq: NEEDED Status: Active Protocol: Document 09/06/20 11:46 [facility] (Rec: 09/06/20 12:17 [facility] [id number]) Orientation Orientation/Cognition Level of Alertness Lethargic Orientation Name,Place Language Function Ability Expressive Aphasia Safety Awareness Decreased Safety Awareness Comments Pt able to softly speak his name and to attempt to say hospital in response to query . Gross Range of Motion Upper Extremity ROM Assessment Right Impaired Impairments unable to reach overhead on RUE Lower Extremity ROM Assessment Bilaterally Impaired Impairments L>R weakness Strength Upper Extremity Strength Assessment Right Impaired Lower Extremity Strength Assessment Bilaterally Impaired Hip 3-/5 Knee 3-/5 Ankle 3-/5 Coordination Assessment Assessment Coordination Comments Unable to assess Sensation Assessment Comments Sensation Comments Difficult to assess due to speech impairment Muscle Tone Muscle Tone WNL No Muscle Tone Location Left Upper Extremity Type of Tone Hypertonicity,Rigidity Severity of Tone Mild,Moderate Comments Muscle Tone Comments Modified Vijay scale 1+ ( catch + min resistance through remaining ROM) M6 PT-IP Treatment Start: 08/31/20 08:41 Freq: NEEDED Status: Active Protocol: Document 09/06/20 11:46 [facility] (Rec: 09/06/20 12:17 [facility] [id number]) Physical Therapy Treatment Education Education Provided Safety M7 PT-IP Assessment and Plan Start: 08/31/20 08:41 Freq: NEEDED Status: Active Protocol: Document 09/08/20 13:04 [facility] (Rec: 09/08/20 14:27 [facility] [id number]) PT Summary Assessment and Plan Summary Progress Towards Goals Slow Progress due to Medical Issues,Slow Progress due to Activity Tolerance Assessment Summary Pt able to communicate with shaking and nodding head as well as pointing to communication board. Pt was Total assist x2 for all mobility and was Total assist for sitting balance. Goals Bed Mobility Goal Minimal Assistance Transfer Goal Moderate Assistance,Front Wheeled Walker Gait Goal Moderate Assistance,Front Wheel Walker Gait Distance 25 Days to Meet Goals 10 Frequency of Treatment Frequency Of Treatment Once a Day Treatment Plan Physical Therapy Treatment Plan Bed Mobility Training,Transfer Training,Gait Training, Therapeutic Exercise,Balance Retraining,Discharge Planning, Hot or Cold Pack,Neuromuscular Re-ed,Coordination Retraining Other Recommendations and Next Treatment bed mobility, transfers, Focus balance Recommendations To Nursing Amount of Assist Needed Mechanical Lift Discharge Recommendations PT Discharge Recommendations SNF vs Acute Rehab Transportation Needs at Discharge Stretcher/Ambulance
--- NOTE | 2020-09-08 14:11 | DI.RAD.S_ITS ---
PROCEDURE: XR CHEST 1V INDICATIONS: NG placement TECHNIQUE: One view of the chest was acquired. COMPARISON: None. FINDINGS: Surgical changes and devices: Enteric tube with the tip projecting in the stomach. Lungs and pleura: Scattered atelectasis in the lung bases. Possible small left pleural effusion. Mediastinum: Mediastinal contours appear normal. Heart size is normal. Bones and chest wall: No suspicious bony lesions. Overlying soft tissues appear unremarkable. IMPRESSION: Enteric tube with the tip projecting in the stomach. Dictated by: Jakob Le M.D. on 09/08/2020 at 14:50 Approved by: Jakob Le M.D. on 09/08/2020 at 14:51
--- NOTE | 2020-09-08 14:27 | OT.IPNOTE ---
At this time if having to transport pt, best to use stretcher/ambulance due to his decreased sitting balance.
--- NOTE | 2020-09-08 14:28 | PC.NURSE ---
NG tube inserted, size 16. Patient tolerated well. Placement checked on auscultation, successful. Awaiting on CXRAY for further placement. Awaiting dietary orders.
--- NOTE | 2020-09-08 14:32 | DIET.PN ---
Dietary Progress Note RD consult received this afternoon for TF reccs, pt has NG placed awaiting xray confirmation and tube feed reccs. RD in outpatient appointments until 3:30pm and will have TF reccs and formula ready by 4pm today.
--- NOTE | 2020-09-08 14:46 | CM.DPNOTE ---
Faxed referral packet to [facility] at [facility]'s request, received confirm. Marlyn Carlson CM Asst.
--- NOTE | 2020-09-08 15:43 | DIET.PN ---
Dietary Progress Note Assessment: 74y M admitted on 08/31 for acute CVA referred to nutrition on 09/08 for feeding tube reccs. Per chart review pts POs at meals this hospital stay were 75-100% until 09/07 when for the past 2 days have been unrecorded or 0%. Per nursing pt puts food in his mouth but holds it there rather than swallow. MANAGER GRANT feels pts swallow can be strengthened with acute rehab and his POLST states no artificial nutrition, however pt agreed to NG tube placement and is awaiting nutrition reccs. Pt has HTN, obesity, a.fib, hx of prior CVA. HT: 172.7cm WT: 86kg BMI: 28.8 Labs: WBC 14.7 H, renal fxn WNL, BG WNL MNA:14 normal nutrition Jai: 22 Nutrition Diagnosis: difficulty swallowing r/t acute CVA aeb imaging showing acute CVA, pt holding food in mouth without swallowing, MANAGER GRANT feels pt swallow has rehab potential requesting artificial nutrition. Interventions: Recc continuous TF via NG tube Jevity 1.2 with goal rate of 70mL/h beginning at 40mL/h titrating up by 10mL q4h as tolerated c 250mL free water flushes q4h. Goal rate provides 2,016kcals, 93g PRO, 2.8L fluids between 1500mL free water flushes and 1356mL feed water. Please keep HOB elevated at least 30 degrees during continuous feeding to reduce risk of aspiration. Diet Order: TF Jevity 1.2 EER: 2,000 kcal (23kcal/kg, overweight), 93g PRO (1.1g/kg per elder), 2.8 L fluids (33mL/kg) Monitoring/Evaluations: following daily for feed tolerance
--- NOTE | 2020-09-08 16:31 | PM.PN.1 ---
Subjective Subjective Date Patient Seen: 09/08/20 Time Patient Seen: 08:00 Interval history: Today he is does not have any specific complaints. He still has profound difficulty with speech and movement. But he clearly understands our discussion. Exam Vital Signs (past 8 hours): - 09/08/20 09:28 09/08/20 09:35 09/08/20 13:45 Temperature 98.6 F Pulse Rate 53 L Respiratory Rate 17 Blood Pressure 143/59 H Pulse Oximetry 92 92 92 09/08/20 13:47 09/08/20 15:15 09/08/20 16:05 Temperature 98.5 F 96.9 F L Pulse Rate 55 L 50 L Respiratory Rate 18 18 Blood Pressure 140/61 146/69 H Pulse Oximetry 93 96 98 Oxygen Delivery Method Room Air Oxygen Flow Rate 0 Narrative Exam Narrative: GEN: he has difficulty speaking, he is following commands CV: regular rate and rhythm without murmur PULM: clear to auscultation bilaterally EXT:have no ankle edema NEURO: upper extremity strength 4/5 bilaterally, upgoing babinski, bilateral weak lower extremities with left greater than right, speech slurred and unintelligible Objective Labs Result Diagrams: 09/08/20 05:15 09/08/20 05:15 Labs: Laboratory Results - last 24 hr 09/08/20 09/08/20 05:15 05:15 WBC 14.7 H RBC 4.20 L Hgb 14.8 Hct 42.3 MCV 100.6 H MCH 35.2 H MCHC 35.0 RDW 12.4 Plt Count 173 Sodium 136 L Potassium 3.9 Chloride 106 Carbon Dioxide 22 BUN 18 Creatinine 0.91 Estimated GFR > 60.0 BUN/Creatinine Ratio 19.8 Glucose 82 Calcium 8.9 [facility] Medical History (Updated 08/31/20 @ 03:43 by DIANE Mosher) Glaucoma History of coma History of heart attack History of stroke History of stroke Sleep apnea Surgical History (Updated 08/31/20 @ 03:43 by DIANE Mosher) History of appendectomy History of mandibular surgery History of shoulder surgery Family History (Updated 08/31/20 @ 03:45 by DIANE Mosher) Father Pulmonary embolism Heart disease Mother No problems noted. Social History household members: none Smoking Status: Former smoker alcohol intake: current Assessment & Plan Assessment & Plan narrative: 1. 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, left vertebral artery poor visualized likely due to stenosis -discussed with neurology at [place], patient also with stenosis of basilar artery, they are concerned embolizing from there -recommended no anticoagulation, dual antiplatelet if able, consider transfer if aggressive treatment wanted -discussed with POA and patient who do agree that PEG tube is not within goals of care -currently NPO after worsening of stroke and working with speech -placed NG tube after discussion with patient for short trial to get stronger and continue working with therapy -echo showed normal LV, LVEF 60-65%, normal RV, mild TR -patient developed an episode of AFib with RVR, given the areas of multiple infarcts this leads to a probable embolic source. -blood pressure elevated on admit and has drifted down and been mainly in normal range, not requiring antihypertensive -continue PT/OT/speech therapy 2. Paroxysmal atrial fibrillation with rapid ventricular response, new diagnosis, RVR resolved and now in sinus rhythm. -TTE unremarkable, -started on apixaban 5 mg b.i.d, now stopped after worsening stroke -diltiazem discontinued due to dizziness and bradycardia -telemetry currently showing sinus rhythm 3. 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 4. Orthostatic hypotension, resolved -patient became dizzy while working with therapy, noted to have orthostatic drops in blood pressure, was not taking much oral fluids -encourage p.o. fluid intake Patient has had significant stroke, has limited goals of care and is no code, per POA would not want feeding tube or trach. However, he does not want to improve as much as able. Per speech on 09/08 had some improvement in swallow and has gag. He would benefit from placement with sigifnicant speech therapy per discussion. Short trial of NG tube is ok for the patient.
--- NOTE | 2020-09-08 16:59 | ST.IPDYTX ---
Visit Care Team Role Provider Type Eduardo Cuellar DO Emergency Provider Physician Specialty: Emergency Medicine Address: [address] [place] [address], [id number] Email: [email or web address] Mara Smithronny [facility] Admit Provider Physician Attending Provider Specialty: Medical Address: [address] [place] [address], [id number] Email: REGULATORY SCIENTIST Dysphagia Treatment REGULATORY SCIENTIST Clinical Instructor Line Start: 08/31/20 16:53 Freq: Status: Active Protocol: Document 08/31/20 17:17 ML (Rec: 08/31/20 17:17 ML [id number]) Clinical Instructor Signature Clinical Instructor Clinical Instructor Yes REGULATORY SCIENTIST Dysphagia Treatment Start: 09/08/20 16:40 Freq: Status: Active Protocol: Document 09/08/20 16:40 LNK (Rec: 09/08/20 16:59 LNK [id number]) Dysphagia Treatment Session Time Visit Start Time 12:30 Visit Stop Time 13:15 Total Visit Minutes 45 Setting Assessment Location Acute Care Visit Type Note Type Re-Evaluation Patient Information Identification Type Name,Date of ,ID Wristband Subjective Observations pt in bed easily awakened. Pt fatigues easily Treatment Administration Type Tea Spoon,Straw,Dependent Feeding Oral Strategies Toothette,Controlled Bite/Sip Size,Other Treatment Activities Pt was in bed asleep but easily awakened. Described therapetic treatment for the session as trying to find an elicited swallow reflex. Sensation for a toothette was positive for tongue base, inside cheeks, lips and velum. No gag reflex observed with stimulation to the posterior pharyngeal wall. Trials included head back position, ice chips, cold water, cold carbonated liquid, sorbet, spoon placement at back of tongue, straw liquid in posterior buccal cavities, and submandibular massage. Pt was successful with ice chewed well and sorbet. Swallow reflex of the ice was delayed x4-5 tongue pumps and frequent cues. Small amounts (< 1/2 tsp) of sorbet were also delayed with tongue pumping and may cues to swallow. Approximately 5-6 swallows were elicited. Swallows were weak and audible. Cannot rule out aspiration. Pt is not able to sit in fluoroscopy chair for MBSS. Would be a good candidate for FEES if available after discharge from . Assessment Patient Response to Treatment Good Rehab Potential Fair Assessment of Improvement Today pt spontaneously chewed ice. Swallow reflex was elicited, but the response was delayed and required many cues. pt agreed to an NG tube short term to get him nutrition and fluids and medications. Diet Recommendations Diet Order NPO/Alternative Means of Nutrition/Hydration Aspiration Precautions Additional Precautions PO trials with REGULATORY SCIENTIST ONLY Treatment Plan Appropriate for Continued Therapy Yes: PO trials with REGULATORY SCIENTIST only Dysphagia Goals Pt will demonstrate consistent swallow reflex/response to trials. Cold foods only at this time.
[2020-09-08] MEDS: LATANOPROST 0.005% EYE DROPS 1 EACH EYE-BOTH (21:18)
[2020-09-09] VITALS (10 sets, daily range): BP systolic 124–147; BP diastolic 58–94; PULSE 48–67; RESP 16–18; TEMP 36.1–36.4; O2SAT 91–96
[2020-09-09] MEDS: SODIUM CHLORIDE 0.9% 1,000 ML 100 ML IV (02:11)
[2020-09-09 05:35] LABS: Hematocrit 43.9 % (41-53); Hemoglobin 15.4 g/dL (13.5-17.5); Mean Corpuscular HGB Conc 35.1 % (30-36); Mean Corpuscular Hemoglobin 35.6 PG (26-34); Mean Corpuscular Volume 101.6 fL (80-100); Platelet Count 164 X10^3/uL (150-400); Red Blood Cell Count 4.31 X10^6/uL (4.5-5.9); Red Cell Distribution Width 12.6 % (11.6-14.8); White Blood Cell Count 15.6 X10^3/uL (4.5-11.0)
[2020-09-09 05:37] LABS: BUN Creatinine Ratio 17.3 (6-22); Blood Urea Nitrogen 18 mg/dL (9-20); Calcium 8.8 mg/dL (8.4-10.2); Carbon Dioxide 22 mmol/L (22-32); Chloride 105 mmol/L (98-107); Estimated Glomerular Filt Rate > 60.0 mL/min (>60); Glucose 85 mg/dL (80-110); HEMOLYSIS < 15 (0-50); Potassium 4.2 mmol/L (3.4-5.1); Sodium 135 mmol/L (137-145)
--- NOTE | 2020-09-09 08:34 | DI.RAD.S_ITS ---
PROCEDURE: XR CHEST 1V INDICATIONS: pneumonia? TECHNIQUE: One view of the chest was acquired. COMPARISON: [facility], CT, CT ANGIO HEAD AND NECK, 09/06/2020, 9:08. [facility], CR, XR CHEST 1V, 09/08/2020, 14:16. FINDINGS: Surgical changes and devices: Enteric tube coursing into the stomach. Lungs and pleura: Bibasilar hazy opacity. No pleural effusions or pneumothorax. Mediastinum: Mediastinal contours appear normal. Heart size is normal. Bones and chest wall: No suspicious bony lesions. Overlying soft tissues appear unremarkable. IMPRESSION: Bibasilar hazy opacity. Suspect atelectasis. However, pleural effusion, aspiration, or pneumonia could have a similar appearance. Enteric tube in the stomach. When clinically feasible two-view upright chest radiograph could be performed for further evaluation. Dictated by: Aramis Gallegos M.D. on 09/09/2020 at 9:21 Approved by: Aramis Gallegos M.D. on 09/09/2020 at 9:24
--- NOTE | 2020-09-09 08:58 | PT-IP ANOTE ---
8:58 entered room with OT, pt sleeping and did not wake when touched nor did he wake to calling his name. Informed RN she states pt has been sleeping and will let therapies know if pt wakes. Will check back on pt later today.
--- NOTE | 2020-09-09 09:01 | CM.DPC ---
Addendum entered by Kavya Galloway LPN 09/10/20 09:07: [place] back later in the afternoon re the Bridge swing bed option. Referral had been given to JESUS Frances and her MS SQL DEVELOPER Huong Beltre called to say that [employer] would not authorize a swing bed for rehab unless pt is too complex for a snf. They do not take pt's on ng tube feed. In meantime pt seems to continue to decline. Addendum entered by Kavya Galloway LPN 09/09/20 10:55: NG has been place. Citlalli/tie carrier has given formula recommendations. Addendum entered by Kavya Galloway LPN 09/09/20 10:33: Received a call back from [place] [place]. He confirms that they are holding on to the referral but that pt is not at point where he can tolerate the intensity of the program and his post d/c plan is in ?. He offers option of their Bridge program using the swing beds at [facility]. He is on his was now for a meeting with the INPT/rehab and Swing bed team and will place this referral. He cannot guarantee acceptance but will get back to this d/c land planner later today with specific contact info and etc. He will also be on all weekend as liaison. Did discuss POC in Rounds. Dr. Odonnell said that his understanding is that pt wants to trial the ng tube feed for 3-4 days only in order to give time for rehab to proceed. Pt this morning does not rouse for OT/see her note. Original Note: DCP: continued: Case reviewed for the last few days and will discuss this morning in Team Rounds. Have left a vm with [facility] INPT admissions as know that initially the [facility] Medicare INPT auth was in place through today. The severity of the evolving CVA has changed the setting in which pt might be able to rehab and a primary barrier at this time is the very limited ability to take in nutrition. An NG at the snf is not doable. A peg tube, even for use as a temporary measure (? perhaps a month ) to see it pt is able to regain swallow ability and is able to progress with PT/OT would seem to be an option. KUSUM Butler/Shawna says they are reviewing but until the POC going foreward is clearer they cannot consider acceptance. If pt has a plan that is doable at the snf level by Saturday she will then talk with the team and restart the [employer] snf auth request. Plan to check in with pt and his POA Cuco Mercedes so as to understand the goals of care more fully. Am also hoping to be able to review pt's AD. Plan also to discuss again the ? of a palliative consult with LUIS Buckley.
--- NOTE | 2020-09-09 09:40 | OT.IPNOTE ---
Attempted to see pt for OT services. Pt is sleeping soundly and does not wake to name or tactile stimulation. Will hold today and continue to follow.
[2020-09-09] MEDS: TIMOLOL 0.5% OPHTH 1 EACH EYE-BOTH (10:00)
[2020-09-09] MEDS: CLOPIDOGREL 75 MG TABLET PO (10:49)
[2020-09-09] MEDS: SODIUM CHLORIDE 0.9% FLUSH 10 ML IV (10:49)
[2020-09-09] MEDS: ASPIRIN EC 81 MG TABLET PO (10:49)
[2020-09-09 11:48] LABS: Bacteria Urine None Seen; WBC Urine None Seen (0-5/HPF)
[2020-09-09 11:53] LABS: Appearance Urine UA CLEAR; Bilirubin Urine UA NEGATIVE (NEGATIVE); Color Urine UA YELLOW; Glucose Urine UA NEGATIVE (Negative); Ketones Urine UA 2+ (NEGATIVE); Leukocyte Esterase Urine UA NEGATIVE (NEGATIVE); Nitrite Urine UA NEGATIVE (Negative); Occult Blood Urine UA TRACE-INTACT (Negative); Protein Urine UA NEGATIVE (Negative); Urobilinogen Urine UA 0.2 E.U./dL (0.2); pH Urine UA 5.5 (4.5-8.0)
[2020-09-09 12:07] LABS: Culture Indicated Urine Cult Not Indicated; RBC Urine 0-1/HPF (0-5/HPF)
--- NOTE | 2020-09-09 13:26 | CM.DPNOTE ---
Faxed referral packet to [facility] Bed attn: Yvrose [phone] per Kavya's request. Received fax confirm. Marlyn Carlson CM Asst.
--- NOTE | 2020-09-09 13:46 | SLP.IPNOTE ---
Attempted to see pt. WBC is rising. Am concerned about aspiration. Pt was in bed with eyes closed. He squeezed my hand to confirm he just wanted to sleep today. No therapy. Will f/u over the weekend (NAIL ASSEMBLY MACHINE OPERATOR Mirlande). PO TRIALS WITH SPEECH PATHOLOGY ONLY. NPO
--- NOTE | 2020-09-09 13:48 | P.PN_ITS ---
Subjective Subjective Date Patient Seen: 09/09/20 Time Patient Seen: 08:00 Interval history: Today he has no improvement in his symptoms. He is actually more altered and debilitated with difficulty opening his eyes. Exam Vital Signs (past 8 hours): - 09/09/20 08:00 09/09/20 12:00 Temperature 97.6 F 97.0 F L Pulse Rate 53 L 48 L Respiratory Rate 16 16 Blood Pressure 130/58 L 124/58 L Pulse Oximetry 93 95 Oxygen Delivery Method Room Air Oxygen Flow Rate 0 Narrative Exam Narrative: GEN: he is lethargic, he is not openinng his eyes on request CV: regular rate and rhythm without murmur PULM: clear to auscultation bilaterally EXT:have no ankle edema NEURO: PERRL, he is minimally responding to sternal rub, not speaking today, not able to assess extremity strength Objective Labs Result Diagrams: 09/09/20 05:00 09/09/20 05:00 Labs: Laboratory Results - last 24 hr 09/09/20 09/09/20 09/09/20 05:00 05:00 11:46 WBC 15.6 H RBC 4.31 L Hgb 15.4 Hct 43.9 MCV 101.6 H MCH 35.6 H MCHC 35.1 RDW 12.6 Plt Count 164 Sodium 135 L Potassium 4.2 Chloride 105 Carbon Dioxide 22 BUN 18 Creatinine 1.04 Estimated GFR > 60.0 BUN/Creatinine Ratio 17.3 Glucose 85 Calcium 8.8 Urine Color Yellow Urine Appearance Clear Urine pH 5.5 Ur Specific [place] 1.020 Urine Protein Negative Urine Glucose (UA) Negative Urine Ketones 2+ H Urine Occult Blood Trace-intact Urine Nitrate Negative Urine Bilirubin Negative Urine Urobilinogen 0.2 Ur Leukocyte Esterase Negative Urine RBC 0-1/hpf Urine WBC None seen Urine Bacteria None seen Ur Culture Indicated? Cult not indicated [facility] Medical History (Updated 08/31/20 @ 03:43 by DIANE Mosher) Glaucoma History of coma History of heart attack History of stroke History of stroke Sleep apnea Surgical History (Updated 08/31/20 @ 03:43 by DIANE Mosher) History of appendectomy History of mandibular surgery History of shoulder surgery Family History (Updated 08/31/20 @ 03:45 by DIANE Mosher) Father Pulmonary embolism Heart disease Mother No problems noted. Social History household members: none Smoking Status: Former smoker alcohol intake: current Assessment & Plan Assessment & Plan narrative: 1. 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, present on admission -worsened acutely on 09/05 -repeat imaging showed worsening stroke especially in right thalamic region -initial MRI showed multifocal areas of acute ischemia most notably involving the right posterior temporal occipital lobe, in addition to bilateral cerebellar lesions and thalami -CTA showed significant stenosis in right V4, 70-80% in L proximal ICA, poor flow in both [employer], left vertebral artery poor visualized likely due to stenosis -discussed with neurology at [place], patient also with stenosis of basilar artery, they are concerned embolizing from there -recommended no anticoagulation, dual antiplatelet if able, consider transfer if aggressive treatment wanted -discussed with POA and patient who do agree that PEG tube is not within goals of care -currently NPO after worsening of stroke and working with speech -placed NG tube after discussion with patient for short trial to get stronger and continue working with therapy -echo showed normal LV, LVEF 60-65%, normal RV, mild TR -patient developed an episode of AFib with RVR, given the areas of multiple infarcts this leads to a probable embolic source. -blood pressure elevated on admit and has drifted down and been mainly in normal range, not requiring antihypertensive -continue PT/OT/speech therapy 2. Leukocytosis and metabolic encephalopathy, acute -presumed source is infection -UA is unremarkable for infection -chest xray shows possible aspiration -possibly also has worsened neurologic compromise -for now has been started on IV antibiotics with zosyn 3. Paroxysmal atrial fibrillation with rapid ventricular response, new diagnosis, RVR resolved and now in sinus rhythm. -TTE unremarkable, -started on apixaban 5 mg b.i.d, now stopped after worsening stroke -diltiazem discontinued due to dizziness and bradycardia -telemetry currently showing sinus rhythm 4. Carotid, basilar, [employer] and vertebral artery stenosis -patient also has history of CAD/GA -noted on CTA and MRA -spoke with [facility] neurologist who said no indication for IR intervention -started on atorvastatin 80 mg Q HS -continue aspirin 81 mg q.d., and plavix daily 5. Orthostatic hypotension, resolved -patient became dizzy while working with therapy, noted to have orthostatic drops in blood pressure, was not taking much oral fluids -encourage p.o. fluid intake Patient has had significant stroke, has limited goals of care and is no code, per POA would not want feeding tube or trach. However, he does not want to improve with physical therapy. Per speech on 09/08 had some improvement in swallow and has gag. He may benefit from placement with sigifnicant speech therapy per discussion. Short trial of NG tube for a few days iis ok for the patient.
[2020-09-09] MEDS: PIPERACILLIN/TAZO 4.5 GM in SODIUM CHLORIDE 0.9% 100 ML 200 ML IV (13:51)
--- NOTE | 2020-09-09 14:30 | DIET.PN ---
Dietary Progress Note RD checked in with nursing this am. Pt tolerated initiation TF rate of 40mL/h with no residuals and no jump in BG. Nursing was increasing rate to 50mL/h at 1000 with plans to continue stepwise increase q4h to goal. Pt minimally responsive today, TOW BOAT CAPTAIN concerned about general aspiration of secretions secondary to rising WBC. Recc continuing TF at this time. Goal rate provides 2,016kcals, 93g PRO, 2.8L fluids between 1500mL free water flushes and 1356mL feed water. Please keep HOB elevated at least 30 degrees during continuous feeding to reduce risk of aspiration. Diet Order: TF Jevity 1.2 EER: 2,000 kcal (23kcal/kg, overweight), 93g PRO (1.1g/kg per elder), 2.8 L fluids (33mL/kg)
--- NOTE | 2020-09-09 16:19 | PT-IP ANOTE ---
checked on pt this afternoon but pt continues to be lethargic and unable to keep his eyes open. pt is not appropriate for PT at this time. will f/u tomorrow.
[2020-09-09] MEDS: PIPERACILLIN/TAZO 3.375 GM in SODIUM CHLORIDE 0.9% 100 ML 25 ML IV (18:00)
[2020-09-09] MEDS: LATANOPROST 0.005% EYE DROPS 1 EACH EYE-BOTH (21:39)
[2020-09-10] VITALS (10 sets, daily range): BP systolic 106–144; BP diastolic 51–64; PULSE 56–76; RESP 12–22; TEMP 36.1–37.2; O2SAT 89–96
[2020-09-10] MEDS: PIPERACILLIN/TAZO 3.375 GM in SODIUM CHLORIDE 0.9% 100 ML 25 ML IV ×2 (01:21→09:51)
--- NOTE | 2020-09-10 03:42 | PC.NURSE ---
Patient is resting in bed and upon assessment, patient was not very responsive. Patient would not open eyes or respond to verbal stimuli. When turning for brief change and repositioning, patient would moan in response to movement. Patient also jerked his legs when RN was repositioning SCDs. Upon reviewing the patients chart, it was noted by the nightshirt RN that the IV in the LFA was placed on 08/30 and a new site should had been inserted since. A new site was placed in Right Hand and the old site will be removed.
[2020-09-10 06:04] LABS: Mean Corpuscular HGB Conc 35.4 % (30-36); Mean Corpuscular Hemoglobin 35.6 PG (26-34); Mean Corpuscular Volume 100.6 fL (80-100); Platelet Count 159 X10^3/uL (150-400); Red Blood Cell Count 4.48 X10^6/uL (4.5-5.9); Red Cell Distribution Width 12.4 % (11.6-14.8); White Blood Cell Count 18.5 X10^3/uL (4.5-11.0)
--- NOTE | 2020-09-10 08:54 | PT-IP ANOTE ---
Check on pt this morning, unable to arouse pt with verbal and tactile cues. Spoke with Dr. Burrows and with pt not responding pt will be discharged from PT at this time.
--- NOTE | 2020-09-10 09:11 | CM.DPC ---
Addendum entered by Kavya Galloway LPN 09/10/20 12:29: Dr. Burrows met with Cuco as planned and pt is now transitioning to an end of life symtom management plan of care. Cuco has returned home to help his search for needed financial paperwork. Dr. Burrows states Cuco said pt has friends all over the world who may know more about this piece and that his occasional babysitter resided in [place]. Will be following. Addendum entered by Kavya Galloway LPN 09/10/20 10:24: Have spoken now by phone with Cuco Mercedes: correct cell: [phone]. He confirms he is DPOA but for Health care only. He says his Marcelle is on her way to pt's condo now to look for who might be managing his finances. He notes that pt has plenty of funds to pay for care he will need. He will be here at [address] Burrows re POC and also with this dcplanner. Will be following closely. Original Note: DCP: continued: pt continues to be minimally responsive. Reviewed pt's AD dated DEC 2018 requesting no artificial hydration or nutritionif pt is diagnosed to be in terminal or permanent unconscious condition. Have left a message now for Gilda, spouse of Cuco Mercedes, reportedly the DPOA. . phone listed on face sheet for Cuco Mercedes is incorrect. Requested a call back and need for one of them to come to the hospital to meet with Dr. Burrows in presence of pt and discuss POC going forward. Dr. Gilliam did have a conversation with DPOA at time pt's CVA acutely worsened and with outcome being a trial of NG tube feeds for 3-4 days to see if this would enable pt to improve. Met with HEALTH UNDERWRITER Lizeth yesterday afternoon and she expressed extreme concern re pt's swallow ability and with recommendation of MBS which in his current state he would not be able to do. Any oral feed trials were to be with HEALTH UNDERWRITER only. P: discuss in Team Rounds with Dr. Burrows Follow accordingly.
[2020-09-10] MEDS: ASPIRIN EC 81 MG TABLET PO (09:50)
[2020-09-10] MEDS: CLOPIDOGREL 75 MG TABLET PO (09:50)
[2020-09-10] MEDS: TIMOLOL 0.5% OPHTH 1 EACH EYE-BOTH (09:50)
[2020-09-10] MEDS: SODIUM CHLORIDE 0.9% FLUSH 10 ML IV (09:51)
--- NOTE | 2020-09-10 10:56 | OT.IPNOTE ---
Attempted to see pt for OT services. Pt is unarousable at this time with tactile and verbal stimulus. Pt is not able to participate in OT services at this time with poor prognosis. Will discharge order.
--- NOTE | 2020-09-10 11:01 | SLP.IPNOTE ---
GUARDIAN AD LITEM Mirlande attempted to work with pt at 10:35 this morning. Pt was observed to be resting in bed. GUARDIAN AD LITEM attempted for 10 minutes to arouse pt with tactile and verbal stimulation. Pt could not be aroused at this time. No PO trials administered due to pt's current state. GUARDIAN AD LITEM spoke with nurse who informed the GUARDIAN AD LITEM that pt required suctioning last night as he had began to sound gurgly. Pt may not be tolerating his own secretions if that is the case.
--- NOTE | 2020-09-10 14:03 | P.PN_ITS ---
Subjective Subjective Interval history: Patient is a 74-year-old male who was admitted to the hospital for an acute embolic stroke. He developed progressive symptoms. The patient is nearly up tongue did although he does arouse to deep stimuli. She his durable power of assistant prosecuting attorney is here, who requested the patient be made comfort care. As such all medications will be discontinued, the NG tube will be discontinued, and plans are underway for hospice placement. Exam Vital Signs (past 8 hours): - 09/10/20 09:00 Temperature 97 F L Pulse Rate 76 Respiratory Rate 22 Blood Pressure 106/51 L Pulse Oximetry 95 Oxygen Delivery Method Room Air Oxygen Flow Rate 0 Narrative Exam Narrative: Elderly gentleman lying in bed unresponsive except for withdrawing all 4 extremities to deep pain HENMT Head: normocephalic and atraumatic Ears: external ears normal Resp Other: Clear to auscultation Cardio Other: Regular rate and rhythm normal S1-S2 Other: Abdomen soft nontender nondistended Neuro Other: Patient is unresponsive to voice, GCS 7 Patient withdrawals 4 extremities to pain, does not respond to verbal commands, eyes are closed Objective Labs Result Diagrams: 09/10/20 05:52 09/09/20 05:00 Labs: Laboratory Results - last 24 hr 09/10/20 05:52 WBC 18.5 H RBC 4.48 L Hgb 16.0 Hct 45.0 MCV 100.6 H MCH 35.6 H MCHC 35.4 RDW 12.4 Plt Count 159 PFSH Medical History (Updated 08/31/20 @ 03:43 by DIANE Mosher) Glaucoma History of coma History of heart attack History of stroke History of stroke Sleep apnea Surgical History (Updated 08/31/20 @ 03:43 by DIANE Mosher) History of appendectomy History of mandibular surgery History of shoulder surgery Family History (Updated 08/31/20 @ 03:45 by DAINE Mosher) Father Pulmonary embolism Heart disease Mother No problems noted. Social History household members: none Smoking Status: Former smoker alcohol intake: current Assessment & Plan Assessment & Plan narrative: 1. Acute embolic CVA, now with progression, GCS of 7 2. Paroxysmal atrial fibrillation 3. Glaucoma Number for history of coronary disease plan patient to be made comfort care, hospice consultation, anticipate discharge to either inpatient hospice or subacute rehabilitation. Discussed with the patient's surrogate, durable power assistant prosecuting attorney. Scores GCS [place] coma scale eye opening: None [place] coma scale verbal response: None [place] coma scale motor response: Localising [place] coma scale total score: 7
--- NOTE | 2020-09-10 15:08 | PC.NURSE ---
This nurse placed 16fr Escalante catheter at around 1500. ~600mL immediate output and emptied. 10mL to inflate balloon. pt tolerated well. Bag hanging below patient, on bed, free of kinks and loops, secured to left leg with catheter kit sticker.
--- NOTE | 2020-09-10 16:04 | PT-IP ANOTE ---
WORKING MANAGER informed this PT that pt is still not arousable and unable to participate with PT and that Dr. Burrows agreed to d/c PT. EMR reviewed and per doctor's note, pt will be going to be comfort care. will d/c pt from PT.
--- NOTE | 2020-09-10 16:55 | PC.NURSE ---
Patient on ARCHIVES DIRECTOR and POA Cuco Ospina is aware and helped make this decision earlier today. Patient is unresponsive, unable to open eyes or follow commands. Escalante is draining small amounts of dark tea colored urine and is mouth breathing while sleeping. Lungs are clear and heart sounds present. Will continue to turn as needed, suction if appropriate, and give morphine for comfort.
[2020-09-10] MEDS: MORPHINE 2 MG/ML INJ IV ×2 (22:04→23:35)
[2020-09-11 07:30] VITALS: BP 116/52; PULSE 54; RESP 14; TEMP 37.7; O2SAT 91
[2020-09-11] MEDS: SCOPOLAMINE 1 PATCH TOP (09:25)
[2020-09-11] MEDS: ATROPINE 1% OPHTH 2 DROPS SL ×3 (09:27→21:14)
[2020-09-11] MEDS: LORazepam 2 MG/ML INJ 1 MG IV ×3 (10:29→21:14)
--- NOTE | 2020-09-11 11:49 | PC.NURSE ---
Day shift: Pt resting w/ no s/s of pain or discomfort. Gave IV Ativan per MAY to increase Pt's comfort. Bed alarm is on. Rounding on Pt per protocol. Will continue w/ plan of care.
--- NOTE | 2020-09-11 12:26 | PC.NURSE ---
Day shift: This telegraphic typewriter operator chief called and talked with Cuco Mercedes (POA) at approx 1230 today. Made Cuco aware that Pt likey to pass away soon. Updated Cuco on Pt's comfort level and status. Cuco stated that he was very thankful for this call today.
--- NOTE | 2020-09-11 13:33 | PM.PN.1 ---
Subjective Subjective Interval history: The patient remains unresponsive, eyes are closed, he does moved to some stimulation. He had excessive secretions and was placed on scopolamine patch and as needed atropine Exam Vital Signs (past 8 hours): - 09/11/20 07:30 Temperature 99.9 F H Pulse Rate 54 L Respiratory Rate 14 Blood Pressure 116/52 L Pulse Oximetry 91 Oxygen Delivery Method Room Air Oxygen Flow Rate 0 Narrative Exam Narrative: Unresponsive male lying in bed Patient is not in a coma, however eyes are closed and he is unresponsive Resp Other: Decreased breath sounds, gurgling earlier today No rhonchi or wheezes Cardio Other: Cardiac exam regular rate and rhythm normal S1-S2 GI Other: Abdomen soft and nontender Neuro Other: Eyes closed, patient is unresponsive to voice He does withdraw extremities to painful stimulation Objective Labs Result Diagrams: 09/10/20 05:52 09/09/20 05:00 [facility] Medical History (Updated 08/31/20 @ 03:43 by VICKI Mosher-SABAS) Glaucoma History of coma History of heart attack History of stroke History of stroke Sleep apnea Surgical History (Updated 08/31/20 @ 03:43 by VICKI Mosher-SABAS) History of appendectomy History of mandibular surgery History of shoulder surgery Family History (Updated 08/31/20 @ 03:45 by VICKI Mosher-SABAS) Father Pulmonary embolism Heart disease Mother No problems noted. Social History household members: none Smoking Status: Former smoker alcohol intake: current Assessment & Plan Assessment & Plan narrative: 1. Acute embolic CVA 2. Patient is unresponsive, but not in a coma patient's eyes are closed, he does not respond to voice, GCS score of 7. However patient does move to stimulation 3. Paroxysmal atrial fibrillation 4. Glaucoma
--- NOTE | 2020-09-11 16:24 | CM.DPC ---
DCP: continued: case discussed in Team Rounds and with Dr. Burrows adding to the end of life symptom management plan the stopping of all suction as not considered a comfort measure. Did speak with DPOA Cuco Islas later in the day re the quest for pt's financial POA. He says he did confirm that the pt's church warden in [place] is executor of the estate and also has DPOA for finances. Explained need for followup with this person so that payment to another facility/likely snf could be facilitated. He said he would try to see what could be arranged. He noted no one locally has access to pt's funds. asked about arrangements for pt's body as he may pass here at any time. He said pt would want to be cremated but nothing has been arranged. Offered info that [facility] in [place] would likely take pt's body at and hold it until arrangements made but that he would need to call there right away. He agreed to same. Have updated RN coordinator Imani.
[2020-09-11] MEDS: MORPHINE 2 MG/ML INJ IV ×2 (17:39→21:21)
--- NOTE | 2020-09-11 22:35 | PC.NURSE ---
Patient on comfort care. Loved ones at bedside throughout shift. Given PRN atavan, morphine, and atrophine drops for comfort. Mild agitation with increased moaning relieved with these interventions. Oral car provided throughout shift as well as repositioning. Having periods of apnea, can moan but otherwise non verbal. Does not open eyes.
[2020-09-12] VITALS (7 sets, daily range): BP systolic 117; BP diastolic 47; PULSE 62; RESP 8–32; TEMP 36.5; O2SAT 90–92
[2020-09-12] MEDS: MORPHINE 2 MG/ML INJ IV ×5 (01:09→19:59)
[2020-09-12] MEDS: SCOPOLAMINE 1 PATCH TOP (03:31)
[2020-09-12] MEDS: LORazepam 2 MG/ML INJ 1 MG IV ×3 (04:57→11:56)
[2020-09-12] MEDS: ATROPINE 1% OPHTH 2 DROPS SL ×3 (07:57→19:59)
--- NOTE | 2020-09-12 09:33 | DIET.PN ---
Dietary Progress Note Pt transitioned to comfort care over the weekend, nutrition support discontinued.
--- NOTE | 2020-09-12 09:50 | PC.NURSE ---
Day shift: Pt has 2 visitors at this time. Pt showing no s/s of pain or discomfort. [facility] number in Pt's chart on yellow sticky note.
--- NOTE | 2020-09-12 12:17 | P.PN_ITS ---
Subjective Subjective Date Patient Seen: 09/12/20 Time Patient Seen: 12:19 Interval history: The patient remains unresponsive, eyes are closed, not responsive this AM. Exam Vital Signs (past 8 hours): - 09/12/20 06:11 09/12/20 08:44 09/12/20 09:56 Temperature 97.7 F Pulse Rate 62 Respiratory Rate 8 L 26 H Blood Pressure 117/47 L Pulse Oximetry 90 L 91 09/12/20 11:40 Temperature Pulse Rate Respiratory Rate Blood Pressure Pulse Oximetry 91 Oxygen Delivery Method Room Air Oxygen Flow Rate 0 Narrative Exam Narrative: GEN: he is lethargic, he is not openinng his eyes on request CV: regular rate and rhythm without murmur PULM: clear to auscultation bilaterally EXT:have no ankle edema NEURO: PERRL, he is minimally responding to sternal rub, not speaking today, not able to assess extremity strength Objective Labs Result Diagrams: 09/10/20 05:52 09/09/20 05:00 [facility] Medical History (Updated 08/31/20 @ 03:43 by VICKI Mosher-SABAS) Glaucoma History of coma History of heart attack History of stroke History of stroke Sleep apnea Surgical History (Updated 08/31/20 @ 03:43 by DIANE Mosher) History of appendectomy History of mandibular surgery History of shoulder surgery Family History (Updated 08/31/20 @ 03:45 by DIANE Mosher) Father Pulmonary embolism Heart disease Mother No problems noted. Social History household members: none Smoking Status: Former smoker alcohol intake: current Assessment & Plan Assessment & Plan narrative: 1. 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, present on admission -worsened acutely on 09/05 -repeat imaging showed worsening stroke especially in right thalamic region -initial MRI showed multifocal areas of acute ischemia most notably involving the right posterior temporal occipital lobe, in addition to bilateral cerebellar lesions and thalami -CTA showed significant stenosis in right V4, 70-80% in L proximal ICA, poor flow in both EMPLOYMENT EDUCATIONAL COORD, left vertebral artery poor visualized likely due to stenosis -discussed with neurology at [place], patient also with stenosis of basilar artery, they are concerned embolizing from there -recommended no anticoagulation, dual antiplatelet if able, consider transfer if aggressive treatment wanted however discussed with POA and patient who do agree that PEG tube is not within goals of care -placed NG tube after discussion with patient for short trial to get stronger and continue working with therapy, however now discontinued -echo showed normal LV, LVEF 60-65%, normal RV, mild TR -patient developed an episode of AFib with RVR, given the areas of multiple infarcts this leads to a probable embolic source. -blood pressure elevated on admit and has drifted down and been mainly in normal range, not requiring antihypertensive -continue PT/OT/speech therapy 2. Leukocytosis and metabolic encephalopathy, acute -presumed source was infection -UA is unremarkable for infection -chest xray shows possible aspiration -possibly also has worsened neurologic compromise -was started on IV antibiotics with zosyn now discontinued. Now stopped trending. 3. Paroxysmal atrial fibrillation with rapid ventricular response, new diagnosis , RVR resolved and now in sinus rhythm. -TTE unremarkable, -started on apixaban 5 mg b.i.d initially, now stopped after worsening stroke -diltiazem discontinued due to dizziness and bradycardia 4. 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 5. Orthostatic hypotension, resolved -patient became dizzy while working with therapy, noted to have orthostatic drops in blood pressure, was not taking much oral fluids Patient has had significant stroke, has limited goals of care and is no code, per POA would not want feeding tube or trach. Has progressed and has remained non-verbal and with minimal responsiveness. Now pending hospice however no legal representation for the patient has been able to reach. He is either to discharge to hospice or will in the hospital, timing uncertain but soon.
[2020-09-12] MEDS: SODIUM CHLORIDE 0.9% FLUSH 10 ML IV (12:50)
--- NOTE | 2020-09-12 13:56 | PC.NURSE ---
Day shift: Pt's RR at 32 at approx 1400. No s/s of pain or discomfort. Audible rattles present. Dr Hsu informed about IV meds needing to be switched to the buccal type for ativan and morphine. Will continue to monitor.
--- NOTE | 2020-09-12 15:36 | CM.DANOTE ---
DCP/continued: Reviewed chart. Patient continues to be medically stable on comfort measures. Spoke with provider and there is no way to tell how long patient will remain alive. Per provider it could be weeks or days? Therefore, WADER BOOT TOP ASSEMBLER working on safe d/c plan to have patient go to SNF private pay with Hospice. WADER BOOT TOP ASSEMBLER placed call to listed DPOA/Bryan Mercedes ph# [phone], spoke directly with him and his spouse Haley re: current medical and financial status. They both report that they do not have access to patient's funds but do have access to patient's residence. WADER BOOT TOP ASSEMBLER requested that DPOA paperwork with Bryan's name be emailed or copy brought to WADER BOOT TOP ASSEMBLER by tomorrow 09-13-20. Paperwork that WADER BOOT TOP ASSEMBLER currently has is Health Care Directive no copy of DPOA found in red chart or EMR? Both Haley and Bryan are aware that patient cannot stay in acute care setting for comfort measures indefinitely. WADER BOOT TOP ASSEMBLER suggested patient be placed in SNF with hospice. Both Haley and Bryan agreeable and would like [facility] to evaluate. WADER BOOT TOP ASSEMBLER called Lakesha at [facility] and she reports that she may have male bed. Estimated cost is $400.00 per day. Haley and Bryan calling executor in [facility] to discuss name is Luis Marie ph#[phone]. They hope to get response from him by tomorrow 09-13-20. In the meantime Haley and Bryan considering assisting with financial piece with her 1)using patient's credit card if authorized by Luis Ruiz or 2) Providing the money with agreement that they will get reimbursed. WADER BOOT TOP ASSEMBLER will f/u with Dayami in AM. [facility] currently evaluating. Clinicals faxed to [facility] and [facility]. P: Pending. CARLOS Cruz
[2020-09-13 01:00] VITALS: O2SAT 93
[2020-09-13] MEDS: LORazepam 2 MG/ML INJ 1 MG IV ×2 (02:15→04:00)
[2020-09-13] MEDS: ATROPINE 1% OPHTH 2 DROPS SL ×2 (02:21→04:04)
[2020-09-13] MEDS: MORPHINE 2 MG/ML INJ IV ×2 (02:23→06:13)
[2020-09-13] MEDS: SCOPOLAMINE 1 PATCH TOP (07:55)
[2020-09-13 08:17] VITALS: BP 111/60; PULSE 62; RESP 18; TEMP 36.1; O2SAT 90
--- NOTE | 2020-09-13 08:30 | PC.NURSE ---
Day shift: Replaced scolp patch this AM per MAY (behind rt ear). Pts RR effort decreased this AM. No s/s of pain or discomfort at this time. Applied moisturizer to Pt's mouth area. Radial pulses present. Bed alarm is on. Slight involuntary movement rt foot at times. Will continue w/ plan of care.
[2020-09-13 09:36] VITALS: PULSE 61; O2SAT 90
--- NOTE | 2020-09-13 12:50 | PM.PN.1 ---
Subjective Subjective Date Patient Seen: 09/13/20 Time Patient Seen: 12:50 Interval history: The patient remains unresponsive, eyes are closed, shallow breathing. Exam Vital Signs (past 8 hours): - 09/13/20 08:17 09/13/20 09:36 Temperature 96.9 F L Pulse Rate 62 61 Respiratory Rate 18 Blood Pressure 111/60 Pulse Oximetry 90 L 90 L Oxygen Delivery Method Room Air Oxygen Flow Rate 0 Narrative Exam Narrative: GEN: no response, appears comfortable CV: regular rate and rhythm without murmur PULM: occasional upper airway wheezing, shallow breaths, diminished sounds bilateral bases. EXT:have no ankle edema Objective Labs Result Diagrams: 09/10/20 05:52 09/09/20 05:00 [facility] Medical History (Updated 08/31/20 @ 03:43 by DIANE Mosher) Glaucoma History of coma History of heart attack History of stroke History of stroke Sleep apnea Surgical History (Updated 08/31/20 @ 03:43 by DIANE Mosher) History of appendectomy History of mandibular surgery History of shoulder surgery Family History (Updated 08/31/20 @ 03:45 by DIANE Mosher) Father Pulmonary embolism Heart disease Mother No problems noted. Social History household members: none Smoking Status: Former smoker alcohol intake: current Assessment & Plan Assessment & Plan narrative: 1. 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, present on admission -worsened acutely on 09/05 -repeat imaging showed worsening stroke especially in right thalamic region -initial MRI showed multifocal areas of acute ischemia most notably involving the right posterior temporal occipital lobe, in addition to bilateral cerebellar lesions and thalami -CTA showed significant stenosis in right V4, 70-80% in L proximal ICA, poor flow in both MILL SUPERVISOR, left vertebral artery poor visualized likely due to stenosis -discussed with neurology at [place], patient also with stenosis of basilar artery, they are concerned embolizing from there -recommended no anticoagulation, dual antiplatelet if able, consider transfer if aggressive treatment wanted however discussed with POA and patient who do agree that PEG tube is not within goals of care -placed NG tube after discussion with patient for short trial to get stronger and continue working with therapy, however now discontinued given progression -echo showed normal LV, LVEF 60-65%, normal RV, mild TR -patient developed an episode of AFib with RVR, given the areas of multiple infarcts this leads to a probable embolic source. -blood pressure elevated on admit and has drifted down and been mainly in normal range, not requiring antihypertensive -continue PT/OT/speech therapy 2. Leukocytosis and metabolic encephalopathy, acute -presumed source was infection -UA is unremarkable for infection -chest xray shows possible aspiration -possibly also has worsened neurologic compromise -was started on IV antibiotics with zosyn now discontinued. Now stopped trending. 3. Paroxysmal atrial fibrillation with rapid ventricular response, new diagnosis, RVR resolved and now in sinus rhythm. -TTE unremarkable, -started on apixaban 5 mg b.i.d initially, now stopped after worsening stroke -diltiazem discontinued due to dizziness and bradycardia 4. Carotid, basilar, MILL SUPERVISOR and vertebral artery stenosis -patient also has history of CAD/[place] -noted on CTA and MRA -spoke with [facility] neurologist who said no indication for IR intervention -started on atorvastatin 80 mg Q HS, asa and plavix but not currently taking with stroke progression due to goals of care. 5. Orthostatic hypotension, resolved -patient became dizzy while working with therapy, noted to have orthostatic drops in blood pressure, was not taking much oral fluids Patient has had significant stroke, has limited goals of care and is no code, per POA would not want feeding tube or trach. Has progressed and has remained non-verbal and with minimal responsiveness. Now pending hospice however no legal representation for the patient has been able to reach. He is either to discharge to hospice or will in the hospital, timing uncertain but soon.
[2020-09-13] MEDS: LORazepam 2 MG/ML ORAL SOL 1 MG PO (13:10)
--- NOTE | 2020-09-13 13:47 | CM.DPC ---
DCP/continued: Reviewed EMR. Spoke with Dr. Hsu this AM, he reports that patient most likely will within the next 24-48hrs. DPOA paperwork received and scanned into EMR. [facility] reviewing and will consider accepting patient with comfort measures if finances can be secured and DPOA in agreement. Received call from hospice and they can see patient in SNF towards the end of the week if needed. P: SUPERVISOR INSPECTING following closely. If patient remains hospitalized tomorrow will attempt transfer if appropriate. CARLOS Cruz
[2020-09-13 16:49] VITALS: TEMP 36.8
[2020-09-14 01:00] VITALS: O2SAT 90
[2020-09-14] MEDS: LORazepam 2 MG/ML ORAL SOL 1 MG PO (01:00)
[2020-09-14] MEDS: MORPHINE 10 MG/0.5 ML ORAL SYRINGE PO ×2 (03:01→10:42)
--- NOTE | 2020-09-14 03:07 | PC.NURSE ---
Patient SPO2 86-88% on RA, placed on 2L O2 NC for comfort to raise SPO2 to 90+%.
[2020-09-14 08:59] VITALS: BP 115/61; PULSE 82; RESP 14; TEMP 36.9; O2SAT 93
--- NOTE | 2020-09-14 10:34 | PM.PN.1 ---
Subjective Subjective Date Patient Seen: 09/14/20 Time Patient Seen: 10:34 Interval history: The patient remains unresponsive, eyes are closed, shallow breathing. Exam Vital Signs (past 8 hours): - 09/14/20 08:59 Temperature 98.4 F Pulse Rate 82 Respiratory Rate 14 Blood Pressure 115/61 Pulse Oximetry 93 Oxygen Delivery Method Room Air Oxygen Flow Rate 0 Narrative Exam Narrative: GEN: no response, appears comfortable CV: regular rate and rhythm without murmur PULM: occasional upper airway wheezing, shallow breaths, diminished sounds bilateral bases. EXT:have no ankle edema Objective Labs Result Diagrams: 09/10/20 05:52 09/09/20 05:00 [facility] Medical History (Updated 08/31/20 @ 03:43 by VICKI Mosher-SABAS) Glaucoma History of coma History of heart attack History of stroke History of stroke Sleep apnea Surgical History (Updated 08/31/20 @ 03:43 by DIANE Mosher) History of appendectomy History of mandibular surgery History of shoulder surgery Family History (Updated 08/31/20 @ 03:45 by DIANE Mosher) Father Pulmonary embolism Heart disease Mother No problems noted. Social History household members: none Smoking Status: Former smoker alcohol intake: current Assessment & Plan Assessment & Plan narrative: 1. 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, present on admission -worsened acutely on 09/05 -repeat imaging showed worsening stroke especially in right thalamic region -initial MRI showed multifocal areas of acute ischemia most notably involving the right posterior temporal occipital lobe, in addition to bilateral cerebellar lesions and thalami -CTA showed significant stenosis in right V4, 70-80% in L proximal ICA, poor flow in both KEY ACCOUNT COORDINATOR, left vertebral artery poor visualized likely due to stenosis -discussed with neurology at [place], patient also with stenosis of basilar artery, they are concerned embolizing from there -recommended no anticoagulation, dual antiplatelet if able, consider transfer if aggressive treatment wanted however discussed with POA and patient who do agree that PEG tube is not within goals of care -placed NG tube after discussion with patient for short trial to get stronger and continue working with therapy, however now discontinued given progression -echo showed normal LV, LVEF 60-65%, normal RV, mild TR -patient developed an episode of AFib with RVR, given the areas of multiple infarcts this leads to a probable embolic source. -blood pressure elevated on admit and has drifted down and been mainly in normal range, not requiring antihypertensive -continue PT/OT/speech therapy 2. Aspiration pneumonia and metabolic encephalopathy, acute -UA is unremarkable for infection -chest xray shows possible aspiration -possibly also has worsened neurologic compromise -was started on IV antibiotics with zosyn now discontinued given goals of care. Now stopped trending. 3. Paroxysmal atrial fibrillation with rapid ventricular response, new diagnosis, RVR resolved and now in sinus rhythm. -TTE unremarkable, -started on apixaban 5 mg b.i.d initially, now stopped after worsening stroke -diltiazem discontinued due to dizziness and bradycardia 4. Carotid, basilar, KEY ACCOUNT COORDINATOR and vertebral artery stenosis -patient also has history of CAD/[place] -noted on CTA and MRA -spoke with [facility] neurologist who said no indication for IR intervention -started on atorvastatin 80 mg Q HS, asa and plavix but not currently taking with stroke progression due to goals of care. 5. Orthostatic hypotension, resolved -patient became dizzy while working with therapy, noted to have orthostatic drops in blood pressure, was not taking much oral fluids Patient has had significant stroke, has limited goals of care and is no code, per POA would not want feeding tube or trach. Has progressed and has remained non-verbal and with minimal responsiveness. Now pending hospice. He is either to discharge to hospice or will in the hospital, timing uncertain but appears soon.
[2020-09-14] MEDS: ATROPINE 1% OPHTH 2 DROPS SL (10:42)
--- NOTE | 2020-09-14 14:56 | PC.NURSE ---
Patient repositioned, bethany care and oral care provided for comfort. Patient remains unresponsive, except for occasional signs of discomfort as documented in pain assessment. Patient currently appears comfortable and sleeping in bed. [place] remains in place for end of life care. Bed alarm on for safety.
[2020-09-14] MEDS: SODIUM CHLORIDE 0.9% FLUSH 10 ML IV (22:09)
[2020-09-15 01:00] VITALS: O2SAT 90
[2020-09-15] MEDS: LORazepam 2 MG/ML ORAL SOL 1 MG PO (02:03)
[2020-09-15 08:00] VITALS: BP 130/72; PULSE 85; RESP 24; TEMP 37.3; O2SAT 92
[2020-09-15 14:01] VITALS: PULSE 78; RESP 11
--- NOTE | 2020-09-15 14:36 | P.PN_ITS ---
Subjective Subjective Date Patient Seen: 09/15/20 Time Patient Seen: 14:36 Interval history: The patient remains unresponsive, eyes are closed, shallow breathing. Exam Vital Signs (past 8 hours): - 09/15/20 08:00 09/15/20 14:01 Temperature 99.1 F Pulse Rate 85 78 Respiratory Rate 24 11 L Blood Pressure 130/72 Pulse Oximetry 92 Oxygen Delivery Method Nasal Cannula Oxygen Flow Rate 0 Narrative Exam Narrative: GEN: no response, appears comfortable CV: regular rate and rhythm without murmur PULM: occasional upper airway wheezing, shallow breaths, diminished sounds bilateral bases. EXT:have no ankle edema Objective Labs Result Diagrams: 09/10/20 05:52 09/09/20 05:00 [facility] Medical History (Updated 08/31/20 @ 03:43 by VICKI Mosher-SABAS) Glaucoma History of coma History of heart attack History of stroke History of stroke Sleep apnea Surgical History (Updated 08/31/20 @ 03:43 by DIANE Mosher) History of appendectomy History of mandibular surgery History of shoulder surgery Family History (Updated 08/31/20 @ 03:45 by DIANE Mosher) Father Pulmonary embolism Heart disease Mother No problems noted. Social History household members: none Smoking Status: Former smoker alcohol intake: current Assessment & Plan Assessment & Plan narrative: 1. 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, present on admission -worsened acutely on 09/05 -repeat imaging showed worsening stroke especially in right thalamic region -initial MRI showed multifocal areas of acute ischemia most notably involving the right posterior temporal occipital lobe, in addition to bilateral cerebellar lesions and thalami -CTA showed significant stenosis in right V4, 70-80% in L proximal ICA, poor flow in both FINANCIAL ADMINISTRATIVE ASSISTANT, left vertebral artery poor visualized likely due to stenosis -discussed with neurology at [place], patient also with stenosis of basilar artery, they are concerned embolizing from there -recommended no anticoagulation, dual antiplatelet if able, consider transfer if aggressive treatment wanted however discussed with POA and patient who do agree that PEG tube is not within goals of care -placed NG tube after discussion with patient for short trial to get stronger and continue working with therapy, however now discontinued given progression -echo showed normal LV, LVEF 60-65%, normal RV, mild TR -patient developed an episode of AFib with RVR, given the areas of multiple infarcts this leads to a probable embolic source. -blood pressure elevated on admit and has drifted down and been mainly in normal range, not requiring antihypertensive -continue PT/OT/speech therapy 2. Aspiration pneumonia and metabolic encephalopathy, acute -UA is unremarkable for infection -chest xray shows possible aspiration -possibly also has worsened neurologic compromise -was started on IV antibiotics with zosyn now discontinued given goals of care. Now stopped trending. 3. Paroxysmal atrial fibrillation with rapid ventricular response, new diagnosis, RVR resolved and now in sinus rhythm. -TTE unremarkable, -started on apixaban 5 mg b.i.d initially, now stopped after worsening stroke -diltiazem discontinued due to dizziness and bradycardia 4. Carotid, basilar, FINANCIAL ADMINISTRATIVE ASSISTANT and vertebral artery stenosis -patient also has history of CAD/[place] -noted on CTA and MRA -spoke with [facility] neurologist who said no indication for IR intervention -started on atorvastatin 80 mg Q HS, asa and plavix but not currently taking with stroke progression due to goals of care. 5. Orthostatic hypotension, resolved -patient became dizzy while working with therapy, noted to have orthostatic drops in blood pressure, was not taking much oral fluids Patient has had significant stroke, has limited goals of care and is no code, per POA would not want feeding tube or trach. Has progressed and has remained non-verbal and with minimal responsiveness. Now pending hospice. He is either to discharge to hospice or will in the hospital, timing uncertain but appears soon.
--- NOTE | 2020-09-15 15:25 | CM.DPNOTE ---
DCP Cont According to JOSE mosquera, patient's status does not appear to have changed in the last 48-72 hours. Placed call to DPOA Bryan; Bryan currently in the middle of seeing patients and needs to return call once he hears from workers compensation attorney Luis. Suggested Bryan place call to August at [facility] and Bryan resistant to this, states he needs to discuss w/patient's workers compensation attorney Following closely. Patient will need to use private funds to pay for care; DPOA trying to access these JW
[2020-09-16 01:00] VITALS: O2SAT 91
[2020-09-16] MEDS: LORazepam 2 MG/ML ORAL SOL 1 MG PO ×2 (01:32→06:31)
[2020-09-16 06:24] VITALS: BP 107/70; PULSE 64; RESP 10; TEMP 37.1; O2SAT 95
--- NOTE | 2020-09-16 09:12 | CM.DPNOTE ---
Faxed [facility] at [facility]'s request referral packet and received fax confirm. Marlyn Carlson CM Asst.
--- NOTE | 2020-09-16 10:15 | P.PN_ITS ---
Subjective Subjective Date Patient Seen: 09/16/20 Time Patient Seen: 08:00 Interval history: Moustapha Coppola is a 74 y.o. male admitted for an acute CVA on 08/30, currently now on hospice end of life care. He is non-responsive and now exhibiting decorticate positioning. Exam Vital Signs (past 8 hours): - 09/16/20 06:24 Temperature 98.7 F Pulse Rate 64 Respiratory Rate 10 L Blood Pressure 107/70 Pulse Oximetry 95 Oxygen Delivery Method Room Air Oxygen Flow Rate 0 Narrative Exam Narrative: Gen: Non-responsive 74 y.o. male, appears comfortable Resp: has normal rise and fall, no crackles CV: RRR, no murmur or rubs Abd: soft, non-tender, normoactive BTs Neuro: Non-responsive, decorticate positioning of the lower extremities Objective Labs Result Diagrams: 09/10/20 05:52 09/09/20 05:00 [facility] Medical History (Updated 08/31/20 @ 03:43 by DIANE Mosher) Glaucoma History of coma History of heart attack History of stroke History of stroke Sleep apnea Surgical History (Updated 08/31/20 @ 03:43 by DIANE Mosher) History of appendectomy History of mandibular surgery History of shoulder surgery Family History (Updated 08/31/20 @ 03:45 by DIANE Mosher) Father Pulmonary embolism Heart disease Mother No problems noted. Social History household members: none Smoking Status: Former smoker alcohol intake: current Assessment & Plan Assessment & Plan narrative: 1. 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 Carotid, basilar, RUBBER GOODS INSPECTOR TESTER and vertebral artery stenosis -patient also has history of CAD/[place] -noted on CTA and MRA Patient has had significant stroke, has limited goals of care and is no code, per POA would not want feeding tube or trach. Has progressed and has remained no n-verbal and with minimal responsiveness. Now pending hospice. Plan is to discharge to hospice or will in the hospital, timing uncertain but appears imminent.
[2020-09-16] MEDS: MORPHINE 10 MG/0.5 ML ORAL SYRINGE PO ×2 (11:01→14:54)
--- NOTE | 2020-09-16 12:04 | CM.DPNOTE ---
Addendum entered by CARLOS Dumont 09/16/20 12:58: In addition, spoke to Genoveva/ENMA who instructed this GLASS GLAZIER to send a new referral on patient's behalf once dispo is better clarified. Original Note: DCP Cont Attempting coordination of DCP throughout the morning. Patient's status remains unchanged. Placed call to [facility] [place] [facility], no beds available. Placed call to [facility], they have beds available but patient's clinical information needs to be reviewed by attending provider.Clinical faxed by RYANN Cline. Jina P# [phone] F# [phone] is the contact, reviewed this case w/Jina and she will be in touch. 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 Dr Hsu has reviewed and signed, copy of this document scanned into patient's chart and emailed, via secure email, to MAURI Adams. Bryan instructed this GLASS GLAZIER to await f/u, as Bryan was planning on discussing further steps w/Luis ([facility]). In addition, health care attorney Luis was coordinating w/local health care attorney Georgina Dodson ([place]) in attempt to access funds here in the [place] (and hopefully write check to [facility]?). TC to August at [facility] to confirm they still had a bed available for patient? How much would need to be deposited to secure bed? Deposit should be $400x30= $12,000 and August would need copy of financial POA faxed and contact w/financial POA secured before admission Spoke w/Bryan hours later,1210, he was seeing patients and had not read the email sent by this GLASS GLAZIER. Bryan instructed contact w/health care attorney Georgina Dodson P# [phone] Placed call to health care attorneylizeth Dodson and had to LM Awaiting f/u from DPOA and/or financial POA, whom are legally responsible for collaborating and accessing finances on this patient's behalf. SUELLEN
--- NOTE | 2020-09-16 15:57 | PC.NURSE ---
Addendum entered by Alycia King R.N. 09/16/20 16:16: 1557: Addendum: The note below was written by Edward evening shift RN. This is my assessment of this patient @ this time. Original Note: Pt obtunded in bed. Periods of apnea noted. No response to tactile or verbal stimuli. Moist, warm skin. Pt was repositioned onto left side. Pressure injury noted to buttocks BL. [place] with dark yellow urine. [place] colored urine present in meadows catheter tubing. Urinary meatus is clean. Pt is NPO, comfort care. Close monitoring by staff as pt is alone in room @ this time. No signs of distress or discomfort.
--- NOTE | 2020-09-16 16:29 | PC.NURSE ---
Addendum entered by Alycia King R.N. 09/16/20 22:58: [facility] arrives to transport remains as per supervisor carpenters, Steffany. Escalante catheter removed intact prior to discharge. Pt's personal belongings to include cane, clothing, slippers, toothbrushes and toothpaste sent to [place] with remains. Addendum entered by Alycia King R.N. 09/16/20 19:44: 1922: VERO [place], notified this documentation writer witnessed pt's last breath followed by absence of respirations. This documentation writer was called to room and also witnessed pt with eyes closed, mouth open and absence of respirations. Apical heartbeat auscultated and this was present until weakened and ceased @ 1930. Confirmed absence of respirations and heartbeat by RN's x 3. Dr. Hsu and LUIS Troy were made aware. LUIS Troy in to confirm and pronounce . Steffany, evening phlebotomist supervisor/instructor, attempting to notify pt's POA by telephone. Original Note: Pt's physical assessment was performed and documented by this documentation writer, Edward @ 8250 inadvertently under dayshift RN EJ name.
--- NOTE | 2020-09-16 20:13 | PM.DDS.1 ---
Discharge Summary History of Illness Narrative: Patient is a 74-year-old male Moustapha Coppola who presented today to the ED for a chief complaint of possible stroke/neuro deficit. Patient states that he has had 3 strokes in the past here for evaluation, and he thinks is another stroke. He states that approximately 10 days ago he felt a sensation the left side of his head that he described as ?popcorn popping ?shortly afterwards he started to have some slurring of his words which he states was new for him. He was also having some blurry vision. He is also having some weakness on his right side. Some of the symptoms have improved since the onset but none of them have completely resolved. He did have some deficits from his prior strokes but with time all those deficits have improved and he thinks what he is experiencing today are new. He has not tried anything for symptoms prior to arrival. He states the reason he came in today is because he talked with a friend who thought he should come in for evaluation. 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 Patient also has a history of heart attack, sleep apnea, and glaucoma. Patient reports he only takes aspirin daily. Upon admit to the floor patient complains of only continuing Ember mild slurred speech and no other deficits at this time. Patient denies chest pain, shortness of breath, nausea, vomiting, diarrhea, chills, fever, body aches, headache, changes in vision, difficulty walking, numbness/tingling, weakness, or difficulty walking or balance. Upon admit patient's blood pressure was slightly elevated at 192/89, but the rest of his vitals were unremarkable. patients CBC was unremarkable and within normal limits as was his CMP with the exception of a blood sugar of 76. Patient's liver enzymes were within normal limits, his tox screen was positive for opiates, and his initial troponin were negative. Patient had EKG with a sinus rhythm, ventricular rate 66, without ST or T-wave changes. Patient's troponin was within normal limits. Patient's head CT demonstrated an old infarct in the right occipital lobe, and noted no acute intracranial abnormalities. NIH score of 2 both in the ED and upon admit to the floor. Patient admitted for neurological deficit, stroke rule out. Hospital Course Date of Admission: 08/31/20 13:50 Date of : 09/16/20 Consults: 08/30/20 20:10 Consult to Discharge Planning Routine Comment: Consult to Occupational Therapy Evaluate & Treat Comment: Physician Instructions: Evaluate and treat Consult to Physical Therapy Evaluate & Treat Comment: Physician Instructions: Evaluate and Treat 09/08/20 12:40 Consult to Dietitian, Adult Routine Comment: Reason For Exam: tube feeding recommendations 09/09/20 13:48 Consult to Palliative Care Urgent Comment: Consulting Provider: Rosibel Buckley 09/10/20 12:27 Consult to Discharge Planning Routine Comment: Consult to Hospice Referral Urgent Comment: 09/11/20 08:43 Consult to Discharge Planning Routine Comment: Consult to Hospice Referral Urgent Comment: 09/16/20 16:11 Consult to Dietitian, Adult Routine Comment: Reason For Exam: Not needed. Pt is NPO, end of life. Discharge provider: Patient at 7:30 p.m. on September 16, 2020. I personally certified patient's time of . Discharge Diagnosis: 1. 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 Aspiration pneumonia and metabolic encephalopathy, acute 3. Paroxysmal atrial fibrillation with rapid ventricular response, new diagnosis, RVR resolved and now in sinus rhythm. 4. Carotid, basilar, [employer] and vertebral artery stenosis 5. Orthostatic hypotension, resolved Patient has had significant stroke, has limited goals of care and is no code, per POA would not want feeding tube or trach. Has progressed and has remained non-verbal and with minimal responsiveness. Now pending hospice. He is either to discharge to hospice or will in the hospital, timing uncertain but appears soon. Hospital Course: . 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, present on admission -worsened acutely on 09/05 -repeat imaging showed worsening stroke especially in right thalamic region -initial MRI showed multifocal areas of acute ischemia most notably involving the right posterior temporal occipital lobe, in addition to bilateral cerebellar lesions and thalami -CTA showed significant stenosis in right V4, 70-80% in L proximal ICA, poor flow in both [employer], left vertebral artery poor visualized likely due to stenosis -discussed with neurology at [place], patient also with stenosis of basilar artery, they are concerned embolizing from there -recommended no anticoagulation, dual antiplatelet if able, consider transfer if aggressive treatment wanted however discussed with POA and patient who do agree that PEG tube is not within goals of care -placed NG tube after discussion with patient for short trial to get stronger and continue working with therapy, however now discontinued given progression -echo showed normal LV, LVEF 60-65%, normal RV, mild TR -patient developed an episode of AFib with RVR, given the areas of multiple infarcts this leads to a probable embolic source. -blood pressure elevated on admit and has drifted down and been mainly in normal range, not requiring antihypertensive -continue PT/OT/speech therapy 2. Aspiration pneumonia and metabolic encephalopathy, acute -UA is unremarkable for infection -chest xray shows possible aspiration -possibly also has worsened neurologic compromise -was started on IV antibiotics with zosyn now discontinued given goals of care. Now stopped trending. 3. Paroxysmal atrial fibrillation with rapid ventricular response, new diagnosis, RVR resolved and now in sinus rhythm. -TTE unremarkable, -started on apixaban 5 mg b.i.d initially, now stopped after worsening stroke -diltiazem discontinued due to dizziness and bradycardia 4. Carotid, basilar, [employer] and vertebral artery stenosis -patient also has history of CAD/VT -noted on CTA and MRA -spoke with [facility] neurologist who said no indication for IR intervention -started on atorvastatin 80 mg Q HS, asa and plavix but not currently taking with stroke progression due to goals of care. 5. Orthostatic hypotension, resolved -patient became dizzy while working with therapy, noted to have orthostatic drops in blood pressure, was not taking much oral fluids Patient has had significant stroke, has limited goals of care and is no code, per POA would not want feeding tube or trach. Has progressed and has remained non-verbal and with minimal responsiveness. Now pending hospice. He is either to discharge to hospice or will in the hospital, timing uncertain but appears soon. Objective Labs Result Diagrams: 09/10/20 05:52 09/09/20 05:00
--- NOTE | 2020-09-16 22:34 | PC.NURSE ---
Several messages left for Cuco and Marcelle Mercedes to notify of . No response. Spoke with [facility], He state he spoke with Marcelle Mercedes and believed they intended to use [facility]. [facility] will pick-up remains and continue to attempt to contact Laz.
--- NOTE | 2020-09-17 10:44 | PC.NURSE ---
Marcelle Ospina of patients MAURI Cuco Bhavesh came in to sign for patients valuables that were in the safe. Marcelle received patients wallet, credit cards and all muniz was accounted for and signed for.
== END 2020-09-16 22:55 | disposition expired | DRG 64 ==
LOC: ED 18:48 → AC 20:09
PROVIDERS: Emergency Medicine; Family Medicine; Internal Medicine; Admitting Provider Nurse Practitioner Family; Emergency Provider Emergency Medicine; Visit Provider Nurse Practitioner Family
DX: I63.112 Cerebral infarction due to embolism of left vertebral artery (principal); G93.41 Metabolic encephalopathy; J69.0 Pneumonitis due to inhalation of food and vomit; G81.91 Hemiplegia, unspecified affecting right dominant side; I63.12 Cerebral infarction due to embolism of basilar artery; I48.0 Paroxysmal atrial fibrillation; I69.992 Facial weakness following unspecified cerebrovascular disease; R29.720 NIHSS score 20; I10 Essential (primary) hypertension; I95.1 Orthostatic hypotension; R06.81 Apnea, not elsewhere classified; D72.829 Elevated white blood cell count, unspecified; I69.944 Monoplegia of lower limb following unspecified cerebrovascular disease affecting left non-dominant side; R13.10 Dysphagia, unspecified; H53.2 Diplopia; E66.9 Obesity, unspecified; R47.81 Slurred speech; H53.8 Other visual disturbances; I25.10 Atherosclerotic heart disease of native coronary artery without angina pectoris; Z20.822 Contact with and (suspected) exposure to COVID-19; Z66 Do not resuscitate; Z68.29 Body mass index [BMI] 29.0-29.9, adult
CPT/HCPCS: 36415; 70450; 70496; 70498; 70548; 70553; 71045; 80048; 80053; 80061; 80305; 81001; 81003; 82550; 82962; 83036; 83735; 83880; 84443; 84484; 85025; 85027; 85610; 87635; 92507; 92526; 92610; 93005; 93306; 94760; 96360; 96361; 97110; 97116; 97162; 97164; 97166; 97168; 97530; 97535; 99285; C9803; G0378; A9579; J2060; J2270; J2543; Q9967